=== PATIENT | male | born 1955 | race Caucasian/White ===

== ENCOUNTER → 2019-02-06 13:22 | Outpatient (CLI) | payer MEDICARE, OTHER, SELFPAY ==
--- NOTE | 2019-02-06 13:25 | CA_ITS ---
PROCEDURE: 2-D M-mode and color Doppler study INDICATIONS FOR THE TEST: Chest pain COPD Heart Murmur Tobacco Smoking Palpitations Fatigue+ Syncope Edema Hypertension+Diabetes Mellitus Rheumatic Fever SOB ROA Obesity Hyperlipidemia+ Family History HD Additional History MV replaced 08/31, pacer, a-fib PATIENT INFORMATION HEIGHT: 73 WEIGHT:164 GENDER: Male B/P:116/81 2-D/M-MODE INTERPRETATION: 2-D MEASUREMENTS OBSERVED VALUES IN CMS Right Ventricular Dimension (RVDd) 2.9 Interventricular Septum (Thickness)(IVsd) 1.3 Left Ventricular Internal Dimensions(LVIDd) 5.4 Left Ventricular Posterior Wall (Thickness)(LVPWd) 0.8 Aortic Root 3.2 Aortic Cusp Separation 2.5 Left Atrial Dimensions (LAD) 3.6 2D 1. Left atrium is mildly enlarged, left ventricle is mildly dilated, there is mild concentric left ventricular hypertrophy, visually estimated ejection fraction 20-25%, left ventricle is globally hypokinetic. 2. The right atrium and right ventricle are mildly enlarged, contractility of the right ventricle is mildly reduced. 3. The aortic valve is thickened and calcified leaflet continue to display mobility. 4. There is a mechanical prosthetic valve noted in the mitral position, the valve is well seated 5. The tricuspid valve leaflets are minimally thickened. 6. No significant pericardial effusion noted. DOPPLER INTERROGATION: 1. The aortic outflow velocities within normal range, there is no aortic stenosis aortic insufficiency. 2. The mitral inflow velocity across the prosthetic valve is within normal range, there is no mitral inflow obstruction, or mitral regurgitation. 3. Mild tricuspid regurgitation noted, tricuspid regurgitation jet velocity is inadequate for calculation of the right ventricular systolic pressure. 4. Diastolic parameters are inconclusive. CONCLUSION: 1. Biatrial enlargement, dilated left ventricle, severely reduced left ventricular systolic function, visually estimated ejection fraction of 20-25% % left ventricle is globally hypokinetic. Diastolic parameters are inconclusive. 2. Normal functioning bio prosthetic valve in the mitral position, the valve is well seated. 3. Mildly enlarged right ventricle with mild reduced contractility. 4. Mild mitral and tricuspid regurgitation 5. No significant pericardial effusion noted.
== END ==
PROVIDERS: PCP Nurse Practitioner Family; Visit Provider Urology
DX: Z95.2 Presence of prosthetic heart valve (principal)
CPT/HCPCS: 93306

== ENCOUNTER → 2019-02-06 15:52 | Outpatient (CLI) | payer MEDICARE, OTHER, SELFPAY ==
[2019-02-06 16:19] LABS: INR 2.74 (0.9-1.1); Prothrombin Time 27.2 seconds (9.4-11.8)
== END ==
PROVIDERS: Visit Provider Nurse Practitioner Family
DX: I11.9 Hypertensive heart disease without heart failure; I25.10 Atherosclerotic heart disease of native coronary artery without angina pectoris; I42.9 Cardiomyopathy, unspecified; I48.0 Paroxysmal atrial fibrillation; I50.21 Acute systolic (congestive) heart failure; R00.0 Tachycardia, unspecified; Z95.0 Presence of cardiac pacemaker; Z95.2 Presence of prosthetic heart valve; E78.49 Other hyperlipidemia
CPT/HCPCS: 36415; 85610; 93306

== ENCOUNTER → 2019-02-27 14:21 | Outpatient (CLI) | payer MEDICARE, OTHER, SELFPAY ==
--- NOTE | 2019-02-27 14:34 | MM_ITS ---
MM Dig mamm BI DX w/CAD INDICATION: Left breast tenderness, follow-up abnormal mammogram ORDERING PHYSICIAN: Michelle Silverio APRN PATIENT AGE: 63 years COMPARISON: 04/19/2018 TECHNIQUE: Routine images obtained along with left axillary view FINDINGS: There is increase in fibroglandular tissue in both subareolar regions left more so than right consistent with bilateral gynecomastia. The increased density of left breast is somewhat more diffuse than when compared to the previous exam. There is a 5 mm benign-appearing nodule in the lateral aspect of the left breast. This was not previously identified on the MLO view likely due to positioning but was seen on the cc view and is not significant change. There is an additional 3 mm nodule also noted in the lateral aspect of left breast unchanged. Benign-appearing nodular densities are noted in the upper aspect of the right facet similar to the previous exam. No malignant appearing mass or malignant microcalcification is evident. IMPRESSION: Benign appearing nodules noted bilaterally. Bilateral gynecomastia left greater than right BI-RADS Category: 3 Probably Benign Finding Short Term Follow-up RECOMMENDED FOLLOW-UP: 6M - 6 MONTH FOLLOW-UP (A letter has been sent to the patient regarding results of the study.)
== END ==
PROVIDERS: PCP Nurse Practitioner Family; Visit Provider Urology
DX: N64.4 Mastodynia (principal); Q83.8 Other congenital malformations of breast; N62 Hypertrophy of breast; Z12.39 Encounter for other screening for malignant neoplasm of breast
CPT/HCPCS: 77066

== ENCOUNTER → 2019-05-07 10:58 | Outpatient (CLI) | payer MEDICARE, OTHER, SELFPAY ==
--- NOTE | 2019-05-07 10:58 | CA_ITS ---
APPROVED REPORT EXAM: Comprehensive 2D, Doppler, and color-flow Echocardiogram Deputy Sheriff/Investigator: Kathy Scott RT(R) Ht: 6 ft 1 in Wt: 164lbs BSA: 1.98 BP: 108/68 mmHg Indications: Prosthetic Valve, Atrial Fibrillation, Dizziness and Vertigo, Fatigue, Hyperlipidemia, Hypertension/HDD, History of dilated cardiomyopathy, currently wearing lifevest, mechanical MV (08/2017). 2D Dimensions LVOT 2.10 cm (M/F) 1.5-2.5 M-Mode Dimensions RVDd 2.80 cm (0.9-2.6) LA Diam 3.60 cm (1.9-4.0) LVDd 5.70 cm (3.5-5.7) Ao Diam 3.10 cm (2.0-3.7) LVDs 4.40 cm (3.5-5.7) AV Cusp 2.50 cm (1.5-2.6) IVSd 0.70 cm (0.6-1.1) PWd 0.80 cm (0.6-1.1) EF (Teich) 45.20% FS 22.80% EDV (Teich) 160.00 mL ESV (Teich) 87.70 mL LV Diastology E/A Ratio 2.1 MED E' 6.73 (< 7 cm/sec) E'/MED E' Ratio 20.80 (>14) LAT E' 13.40 (<10 cm/sec) E/LAT E' Ratio 10.40 (>14) Mitral Valve MV E Max Carter. 140.00 (40-130 cm/s) MV A Velocity 65.80 (40-130 cm/s) E/A Ratio 2.10 MV Mean Gr. 3.00 (<2mmHg) Left Ventricle Left atrium is moderately enlarged, left ventricle is mildly dilated, there is mild concentric left ventricular hypertrophy, visually estimated ejection fraction of 40 to 45%, there is mild left ventricular global hypokinesis. Endocardial surfaces are poorly visualized, diastolic parameters are inconclusive. Right Ventricle Right atrium and right ventricular mildly enlarged with normal contractility, there is a pacemaker leads in right atrium and right ventricle. Aortic Valve Aortic valve is thickened and calcified, leaflet continue to display good mobility, there is no aortic stenosis or aortic insufficiency. Mitral Valve There is a mechanical prosthetic valve noted in the mitral position, the valve is well-seated. The mean gradient across valve is 3 mmHg, which is within physiological range for this type of valve, there is no mitral regurgitation. Tricuspid Valve Tricuspid valve is not well visualized, there is no significant tricuspid regurgitation seen. Pulmonic Valve Pulmonic valve is poorly visualized. Great Vessels Aortic root is normal size. Pericardium No significant pericardial effusion noted. Conclusion 1. Moderately enlarged left atrium, mildly dilated left ventricle, visually estimated ejection fraction 40 to 45%, there is abnormal septal motion. Diastolic parameters are inconclusive. 2. Mechanical prosthetic valve in the mitral position, the valve is well-seated, there is no significant mitral inflow obstruction or mitral regurgitation. 3. Mildly enlarged right-sided chambers with normal contractility of the right ventricle, pacemaker lead seen in the right atrium and right ventricle. 4. Tricuspid valve is poorly visualized. 5. No significant pericardial effusion noted. Electronically signed by : Alberto Daniels, 05/07/2019 20:38:25
== END ==
PROVIDERS: PCP Nurse Practitioner Family; Visit Provider Urology
DX: I42.0 Dilated cardiomyopathy (principal)
CPT/HCPCS: 93306

== ENCOUNTER → 2020-02-03 14:41 | Outpatient (CLI) | payer MEDICARE, OTHER, SELFPAY ==
[2020-02-03 15:39] LABS: Basophils % 0.5 % (0.1-2.0); Eosinophils # 0.1 K/mm3 (0.0-0.4); Hemoglobin 15.4 g/dL (14.1-18.0); Lymphocytes # 1.5 K/mm3 (0.7-4.5); Lymphocytes % 21.6 % (10-50); Mean Corpuscular HGB Conc 33.5 g/dL (31.8-35.4); Mean Corpuscular Hemoglobin 31.5 pg (27.0-31.2); Mean Corpuscular Volume 93.8 fl (80-94); Mean Platelet Volume 8.1 fl (7.4-10.4); Monocytes # 0.6 K/mm3 (0.1-1.0); Monocytes % 8.6 % (1.7-9.3); Neutrophils # 4.7 K/mm3 (1.8-7.8); Neutrophils % 68.4 % (37.0-80.0); Platelet Count 239 K/mm3 (142-424); White Blood Count 6.9 K/mm3 (4.8-10.8)
[2020-02-03 15:44] LABS: Chloride 105 mmol/L (98-107)
[2020-02-03 15:45] LABS: Potassium 4.9 mmoL/L (3.5-5.1); Sodium 137 mmol/L (136-145)
[2020-02-03 15:47] LABS: Alanine Aminotransferase 19 U/L (12-78); Alkaline Phosphatase 48 U/L (38-126); Anion Gap 6.9 mEq/L (5-15); Aspartate Amino Transferase 30 U/L (17-59); Bilirubin,Direct 0.2 mg/dl (0.0-0.4); Bilirubin,Indirect 0.8 mg/dL (0.0-0.9); Bilirubin,Unconjugated 0.8 mg/dL (0.0-1.1); Blood Urea Nitrogen 29 mg/dl (9-20); Carbon Dioxide 30 mmol/L (22.0-30.0); Cholesterol 118 mg/dl (140-200); Estimated Glomerular Filt Rate 67 ml/min (>60); GFR (African American) 81 ML/MIN (>60); Triglycerides 116 mg/dl (30-150); VLDL Cholesterol 23 mg/dL (0-40)
[2020-02-03 15:48] LABS: Albumin Level 3.7 g/dl (3.5-5.0); Calcium 8.6 mg/dl (8.4-10.2); Glucose 86 mg/dl (74-100); Total Protein,Serum 6.7 g/dl (6.3-8.2)
[2020-02-03 15:59] LABS: Direct LDL Cholesterol 43.29 mg/dL (100-129)
[2020-02-03 16:04] LABS: Free T4 (Free Thyroxine) 1.11 ng/dl (0.78-2.19)
[2020-02-03 16:18] LABS: Thyroid Stimulating Hormone 0.73 uIU/mL (0.465-4.68)
[2020-02-03 21:36] LABS: HDL Cholesterol 59 mg/dl (40-60)
== END ==
PROVIDERS: Visit Provider Nurse Practitioner Family
DX: E78.5 Hyperlipidemia, unspecified (principal); G47.33 Obstructive sleep apnea (adult) (pediatric); I11.9 Hypertensive heart disease without heart failure; I25.10 Atherosclerotic heart disease of native coronary artery without angina pectoris; I42.9 Cardiomyopathy, unspecified; I48.91 Unspecified atrial fibrillation; I48.92 Unspecified atrial flutter; Z51.81 Encounter for therapeutic drug level monitoring; Z79.01 Long term (current) use of anticoagulants; Z95.0 Presence of cardiac pacemaker; Z95.2 Presence of prosthetic heart valve
CPT/HCPCS: 36415; 80048; 80061; 80076; 84439; 84443; 85025

== ENCOUNTER → 2020-06-02 11:01 | Outpatient (CLI) | payer MEDICARE, OTHER, SELFPAY ==
--- NOTE | 2020-06-02 11:03 | CA_ITS ---
APPROVED REPORT EXAM: Comprehensive 2D, Doppler, and color-flow Echocardiogram Sexual Abuse Counsellor: Kathy Scott RT(R) Ht: 6 ft 1 in Wt: 172lbs BSA: 2.02 BP: 113/70 mmHg Indications: Murmur, fatigue, HTN, hyperlipidemia, pacemaker, CM, AFIB, CAD, BLANCA, hx of MVR 2D Dimensions LVOT 1.98 cm (M/F) 1.5-2.5 M-Mode Dimensions RVDd 2.87 cm (0.9-2.6) LA Diam 3.34 cm (1.9-4.0) LVDd 5.09 cm (3.5-5.7) Ao Diam 2.94 cm (2.0-3.7) LVDs 3.80 cm (3.5-5.7) IVSd 1.15 cm (0.6-1.1) PWd 0.90 cm (0.6-1.1) EF (Teich) 49.70% FS 25.30% EDV (Teich) 123.20 mL ESV (Teich) 62.00 mL LV Diastology LAT E' 12.40 (<10 cm/sec) Left Ventricle Left atrium is mildly enlarged, left ventricle is normal size, visually estimated ejection fraction approximately 50% with no regional wall motion abnormality. There is abnormal septal motion. Diastolic parameters are inconclusive. Right Ventricle Right atrium and right ventricular normal size and contractility. Aortic Valve Aortic valve is minimally thickened and fibrosed, there is no aortic stenosis or aortic insufficiency. Mitral Valve There is a mechanical prosthetic valve noted in the mitral position, the valve is well-seated, there is acceptable gradient across the mitral valve, there is no mitral regurgitation. Tricuspid Valve Tricuspid valve is minimally thickened, there is mild tricuspid regurgitation, tricuspid regurgitation jet velocity is inadequate for calculation of the right ventricular systolic pressure. Pulmonic Valve Pulmonic valve is poorly visualized. Great Vessels Aortic root is mildly enlarged. Pericardium No significant pericardial effusion noted. Conclusion 1. Mildly low left atrium, normal left ventricular size, mild concentric left ventricular hypertrophy, visually estimated ejection fraction approximately 50% there is abnormal septal motion. Diastolic parameters are inconclusive. 2. Pacemaker lead seen right atrium and right ventricle, contractility of the right ventricle is normal. 3. Thickened and calcified aortic valve without aortic stenosis or aortic insufficiency, aortic root is mildly enlarged. 4. Normal functioning mechanical prosthetic valve in mitral position. 5. No significant pericardial effusion noted. Electronically signed by : Alberto Daniels, 06/02/2020 19:25:35
== END ==
PROVIDERS: PCP Nurse Practitioner Family; Visit Provider Nurse Practitioner Family
DX: E78.2 Mixed hyperlipidemia (principal); G47.33 Obstructive sleep apnea (adult) (pediatric); I11.0 Hypertensive heart disease with heart failure; I25.10 Atherosclerotic heart disease of native coronary artery without angina pectoris; I42.0 Dilated cardiomyopathy; I48.0 Paroxysmal atrial fibrillation; I50.21 Acute systolic (congestive) heart failure; K26.4 Chronic or unspecified duodenal ulcer with hemorrhage; R42 Dizziness and giddiness; R53.83 Other fatigue; Z95.0 Presence of cardiac pacemaker; Z95.2 Presence of prosthetic heart valve
CPT/HCPCS: 93306

== ENCOUNTER → 2021-06-09 13:27 | Outpatient (CLI) | payer MEDICARE, OTHER, SELFPAY | PROVIDERS: PCP Nurse Practitioner Family; Visit Provider Nurse Practitioner Family | DX: E78.5 Hyperlipidemia, unspecified (principal); G47.33 Obstructive sleep apnea (adult) (pediatric); I11.9 Hypertensive heart disease without heart failure; I25.10 Atherosclerotic heart disease of native coronary artery without angina pectoris; I48.91 Unspecified atrial fibrillation; Z95.0 Presence of cardiac pacemaker; Z95.2 Presence of prosthetic heart valve | CPT/HCPCS: 93306 ==

== ENCOUNTER → 2022-07-28 14:42 | Outpatient (CLI) | payer MEDICARE, OTHER, SELFPAY ==
[2022-07-28 15:29] LABS: Basophils # 0.1 K/mm3 (0-0.2); Basophils % 1.3 % (0.1-2.0); Eosinophils # 0.1 K/mm3 (0.0-0.4); Eosinophils % 1.1 % (0.1-12.0); Hematocrit 45.8 % (42.0-52.0); Hemoglobin 14.6 g/dL (14.1-18.0); Lymphocytes # 1.2 K/mm3 (0.7-4.5); Lymphocytes % 19.3 % (10-50); Mean Corpuscular HGB Conc 31.9 g/dL (31.8-35.4); Mean Corpuscular Hemoglobin 29.7 pg (27.0-31.2); Mean Corpuscular Volume 93.1 fl (80-94); Mean Platelet Volume 8.2 fl (7.4-10.4); Monocytes # 0.5 K/mm3 (0.1-1.0); Monocytes % 8.7 % (1.7-9.3); Neutrophils # 4.3 K/mm3 (1.8-7.8); Neutrophils % 69.6 % (37.0-80.0); Platelet Count 269 K/mm3 (142-424); Red Blood Count 4.92 M/mm3 (4.60-6.20); Red Cell Distribution Width 14.2 % (11.5-17.5); White Blood Count 6.2 K/mm3 (4.8-10.8)
[2022-07-28 15:55] LABS: Alanine Aminotransferase 36 U/L (12-78); Alkaline Phosphatase 70 U/L (38-126); Anion Gap 9.5 mEq/L (5-15); Aspartate Amino Transferase 46 U/L (17-59); Bilirubin,Indirect 0.6 mg/dL (0.0-0.9); Bilirubin,Total 0.6 mg/dl (0.2-1.3); Bilirubin,Unconjugated 0.6 mg/dL (0.0-1.1); Blood Urea Nitrogen 26 mg/dl (9-20); Calcium 9.2 mg/dl (8.4-10.2); Carbon Dioxide 29 mmol/L (22.0-30.0); Chloride 104 mmol/L (98-107); Estimated Glomerular Filt Rate 67 ml/min (>60); GFR (African American) 81 ML/MIN (>60); Glucose 88 mg/dl (74-100); Potassium 4.5 mmoL/L (3.5-5.1); Sodium 138 mmol/L (136-145)
[2022-07-28 16:13] LABS: Free T4 (Free Thyroxine) 1.13 ng/dl (0.78-2.19)
[2022-07-28 16:26] LABS: Thyroid Stimulating Hormone 1.17 uIU/mL (0.465-4.68)
== END ==
PROVIDERS: PCP Nurse Practitioner Family; Visit Provider Nurse Practitioner Family
DX: I42.0 Dilated cardiomyopathy (principal); I50.21 Acute systolic (congestive) heart failure; I63.9 Cerebral infarction, unspecified; R55 Syncope and collapse; Z95.0 Presence of cardiac pacemaker; Z95.2 Presence of prosthetic heart valve; E11.9 Type 2 diabetes mellitus without complications; R06.00 Dyspnea, unspecified
CPT/HCPCS: 36415; 80048; 80076; 84439; 84443; 85025

== ENCOUNTER → 2022-08-08 10:51 | Outpatient (CLI) | payer MEDICARE, SELFPAY ==
--- NOTE | 2022-08-08 | CA_ITS ---
APPROVED REPORT Exam: Pharmacologic Technologist: Montserrat Rhodes Ht: 6 ft 1 in Wt: 176 lbs BSA: 2.04 m2 HR: 73 bpm BP: 138/82 mmHg Indications: Syncope Medical History Medications: Coumadin,,,,, Simvastatin,,,,, TAMSULOSIN,,,,, ZYRTEC,,,,, Toprol XL,,,,, SilDENAFIL,,,,, Stress Test Details Test: LEXISCAN HR Resting HR: 70 bpm Max Heart Rate (APMHR): 152.647901 bpm Max HR Achieved: 107 bpm Target HR (85% APMHR): 129.232125 bpm % of APMHR: 70.39 Recovery HR: 79 bpm BP Resting BP: 138.0/82.0 mmHg Max BP: 140.0/74.0 mmHg Recovery BP: 127.0/78.0 mmHg ECG Resting ECG: Ventricular paced rhythm Clinical Exercise duration: 04:05 min Highest Stage Achieved: Exercise capacity: 1.0 METs Stress ECG Conclusion Symptoms: Head discomfort, mild shortness of air. No chest pain. Arrhythmias/Ectopy: Moderately frequent PVCs or aberrantly conducted beats. [place] rhythm with increased heart rate noted. ST-T Changes: No significant changes. Conclusion: Non-diagnostic Lexiscan stress. Myoview images reported separately. Test Summary REST . . . . . . . Sitting REST 06:07 . . 70 . 138/ 82 . . Stage 1 . . . . . . . Myoview Injected Stage 1 01:00 . . 86 . . . . Stage 2 01:00 . . 89 . 140/ 74 . . Stage 3 01:00 . . 76 . 120/ 83 . . Stage 4 01:00 . . 75 . 124/ 75 . . Stage 4 01:05 . . 72 . 124/ 75 . Stop exercise at 04:05 RECOVERY 01:00 . . 73 . . . . RECOVERY 02:00 . . 70 . . . . RECOVERY 03:00 . . 78 . 127/ 78 . . RECOVERY 03:17 . . 80 . 127/ 78 . . Electronically signed by : Alberto Daniels MD 08/08/2022 15:03:36
--- NOTE | 2022-08-08 10:52 | CA_ITS ---
APPROVED REPORT EXAM: Comprehensive 2D, Doppler, and color-flow Echocardiogram Mine Patrol: Kathy Scott RT(R) Ht: 6 ft 1 in Wt: 176lbs BSA: 2.04 BP: 108/77 mmHg Indications: syncope, pacemaker, CM, AFIB, BLANCA, mechanical MV, prostate CA, AFIB 2D Dimensions LVOT 2.02 cm (M/F) 1.5-2.5 LVEF (Almaraz's) 41.00 % M: 52 - 72 LV Volume 110.60 mL M: 62 - 150 LV Volume Index 54.22 mL/m2 M: 34 - 74 M-Mode Dimensions RVDd 2.95 cm (0.9-2.6) LA Diam 3.67 cm (1.9-4.0) LVDd 5.06 cm (3.5-5.7) Ao Diam 3.77 cm (2.0-3.7) LVDs 4.02 cm (3.5-5.7) IVSd 1.01 cm (0.6-1.1) PWd 0.77 cm (0.6-1.1) EF (Teich) 41.80% FS 20.60% EDV (Teich) 121.60 mL ESV (Teich) 70.80 mL LV Diastology E Decel Time 167.00 (160-240 msec) E/A Ratio 1.4 Aortic Valve LVOT Max 62.00 (70-110 cm/s) LVOT VTI 12.37 cm AoV Peak Carter. 99.00 (50-130 cm/s) AO Peak GR. 3.90 mmHg AO Mean GR. 1.90 (<5 mmHg) AO VTI 18.20 (18-25 cm) TIM (VTI) 2.18 (2.5-4.5 cm2) Mitral Valve MV E Max Carter. 136.00 (40-130 cm/s) MV A Velocity 97.00 (40-130 cm/s) E/A Ratio 1.41 MV Decel. Time 167.00 (160-240 ms) MV PHT 49.00 ms Left Ventricle Atrium is moderately enlarged, left ventricle is normal size, estimated ejection fraction approximately 45%, there is abnormal septal motion. Diastolic parameters are inconclusive. Right Ventricle Right atrium and right ventricle are moderately enlarged with normal contractility, pacemaker leads in the right atrium and right ventricle. Aortic Valve Aortic valve is thickened and calcified without Doppler evidence of aortic stenosis or aortic insufficiency. Mitral Valve There is mechanical prosthetic valve noted in the mitral position, the valve is well-seated, the maximum mitral inflow velocity is approximately 1.6 m/s, resulting in a mean gradient across mitral valve of 3.8 cm, pressure half-time is not calculated, this is within normal range mean gradient across mechanical prosthetic valve. There is no significant mitral regurgitation. Tricuspid Valve Tricuspid valve grossly normal, there is mild tricuspid regurgitation, tricuspid regurgitation jet velocity is inadequate for calculation of the right ventricular systolic pressure. Pulmonic Valve Pulmonic valve is poorly visualized. Great Vessels Aortic root is normal size. Inferior vena cava is mildly dilated with more than 50% inspiratory collapse. Pericardium No significant pericardial effusion noted. Conclusion 1. Biatrial enlargement, normal left ventricular size, estimated ejection fraction 45%, there is abnormal septal motion, diastolic parameters are inconclusive. 2. Moderately enlarged right ventricle with normal contractility. 3. Normal functioning mechanical prosthetic valve in the mitral position without significant mitral inflow obstruction or mitral regurgitation. 4. Mild tricuspid regurgitation. 5. No significant pericardial effusion noted. 6. Inferior vena cava is mildly dilated with more than 50% inspiratory collapse. Electronically signed by : Alberto Daniels MD 08/08/2022 15:29:59
--- NOTE | 2022-08-08 10:52 | CA_ITS ---
FINAL REPORT CLINICAL HISTORY: SYNCOPE,DIZZINESS,HLD,HTN FINDINGS: An ultrasound of the carotid arteries was performed. Duplex Doppler evaluation with spectral analysis was performed. The peak systolic velocity of the right common carotid artery is 70 cm/s. The peak systolic velocity of the right internal carotid artery is 74 cm/s and end diastolic velocity 33 cm/s. A small amount of plaque is present. The right external carotid artery is patent. The right vertebral artery is patent with antegrade flow. ICA/CCA ratio: 1.23 The peak systolic velocity of the left common carotid artery is 80 cm/s. The peak systolic velocity of the left internal carotid artery is 60 cm/s and end diastolic velocity 23 cm/s. A small amount of plaque is present. The left external carotid artery is patent. The left vertebral artery is patent with antegrade flow. ICA/CCA ratio: 0.95 Bilateral patent vertebral arteries with antegrade flow. IMPRESSION: Less than 50% bilateral carotid stenosis. Reviewed, Interpreted and Dictated by Benji Gaxiola III, MD Transcribed by David Torres Authenticated and [facility]
--- NOTE | 2022-08-08 11:37 | NM_ITS ---
APPROVED REPORT Exam: Nuclear Stress Test Indication: VALVEVULAR DISEASE, SYNCOPE, PACE MAKER Patient Location: Outpatient Stress Tech: Montserrat Rhodes NM Tech:Carolyn DuncanJOSE ALBERTO RT (R)(N)(M) Ht: 6 ft 1 in Wt: 170 lbs HR: 73 bpm BP: 138/82 mmHg BSA: 2.01 m2 TID: 1.12 BMI: 22.4 History: VALVEVULAR DISEASE, SYNCOPE Procedure: Patient received a 0.4 mg of intravenous Lexiscan, resting heart rate 73 bpm, resting blood pressure 138/82 mmHg, with Lexiscan maximum heart rate achived was 87 bpm which is Less than 85 % of the maximum predicted heart rate and blood pressure was 140/74 mmHg. With Lexiscan, patient denied any complaint of chest pain. Electrocardiogram Resting electrocardiogram showed electronically paced rhythm, with Lexiscan less than 1.[address] segment depression noted from the baseline EKG. The EKG portion of the Lexiscan is nondiagnostic Cardiac Stress and Resting SPECT Images: Cardiac Stress and Resting SPECT images were obtained using technetium 99m Myoview 32.7 mCi stress and 10.86 mCi at rest. Gated SPECT for analysis of segmental wall motion and calculation of the ejection fraction also done. Prone images were also obtained. Cardiac stress and resting SPECT images show a fixed defect in the inferior wall which is likely secondary to soft tissue attenuation, no reversible ischemia seen, computer derived ejection fraction is 24%, however visually estimated ejection fraction approximately 40%, there is abnormal septal motion. Conclusion: 1. The EKG portion of the Lexiscan is nondiagnostic. 2. No scintigraphic evidence of reversible ischemia seen, a fixed defect in the inferior wall is likely secondary to soft tissue attenuation, computer derived ejection fraction is approximately 24%, however visually estimated ejection fraction is approximately 40% with abnormal septal motion. 3. Abnormal Lexiscan Myoview study due to low ejection fraction. Electronically signed by : Alberto Daniels MD 08/08/2022 15:37:28
== END ==
PROVIDERS: PCP Nurse Practitioner Family; Visit Provider Nurse Practitioner Family
DX: E78.2 Mixed hyperlipidemia (principal); G47.33 Obstructive sleep apnea (adult) (pediatric); I11.0 Hypertensive heart disease with heart failure; I25.10 Atherosclerotic heart disease of native coronary artery without angina pectoris; I42.0 Dilated cardiomyopathy; I48.0 Paroxysmal atrial fibrillation; I50.21 Acute systolic (congestive) heart failure; I50.32 Chronic diastolic (congestive) heart failure; N52.2 Drug-induced erectile dysfunction; R55 Syncope and collapse; Z95.0 Presence of cardiac pacemaker; Z95.2 Presence of prosthetic heart valve; R09.89 Other specified symptoms and signs involving the circulatory and respiratory systems
CPT/HCPCS: 78452; 93017; 93306; 93880; A9502; J2785

== ENCOUNTER → 2022-08-10 10:34 | Outpatient (CLI) | payer MEDICARE, SELFPAY ==
--- NOTE | 2022-08-10 10:38 | CT_ITS ---
FINAL REPORT TECHNIQUE: Then section axial CT images of the chest were obtained with contrast. Three-D reformatted images were also obtained.This study was performed with techniques to keep radiation doses as low as reasonably achievable (ALARA). Individualized dose reduction techniques using automated exposure control or adjustment of mA and/or kV according to the patient's size were employed. CLINICAL HISTORY: syncope/hx of mechanical mitral valve. FINDINGS: There are postoperative changes from median sternotomy. A left-sided pacemaker is present. There is no evidence of pulmonary embolism. There is no evidence of thoracic aortic aneurysm or dissection. There is no evidence of mediastinal or hilar mass or adenopathy. There is no evidence of pulmonary mass or suspicious nodule. There are calcified granulomas in the left lung base. There is mild pulmonary scarring. Limited images of the upper abdomen are unremarkable. IMPRESSION: 1. No evidence of pulmonary embolism. 2. No mass or localized inflammatory process. Reviewed, Interpreted and Dictated by Benji Gaxiola III, MD Transcribed by Irma Griggs Authenticated and [facility]
== END ==
PROVIDERS: PCP Nurse Practitioner Family; Visit Provider Internal Medicine
DX: C61 Malignant neoplasm of prostate (principal); E78.2 Mixed hyperlipidemia; G47.33 Obstructive sleep apnea (adult) (pediatric); I11.0 Hypertensive heart disease with heart failure; I25.10 Atherosclerotic heart disease of native coronary artery without angina pectoris; I42.0 Dilated cardiomyopathy; I48.0 Paroxysmal atrial fibrillation; I50.32 Chronic diastolic (congestive) heart failure; R55 Syncope and collapse; Z95.0 Presence of cardiac pacemaker; Z95.2 Presence of prosthetic heart valve
CPT/HCPCS: 71275; Q9967

== ENCOUNTER 2022-08-15 08:40 | Day surgery (SDC) | payer MEDICARE, SELFPAY ==
[2022-08-15] VITALS (11 sets, daily range): BP systolic 100–141; BP diastolic 58–87; PULSE 69–100; RESP 17–20; O2SAT 95–99; BMI 23.2
--- NOTE | 2022-08-15 07:01 | IR_ITS ---
APPROVED REPORT Patient Location: Outpatient PROCEDURES Left heart catheterization Selective coronary angiogram Left ventriculogram INDICATION Abnormal echocardiogram, Systolic congestive heart failure Informed consent was obtained prior to the procedure. COMPLICATIONS None Estimated Blood Loss: Less than 10 mls TECHNIQUE One percent lidocaine used to anesthetize the right anterior aspect of the wrist. The right radial artery was accessed via the Seldinger technique. A 6 Syriac sheath was placed in the right radial artery. 2.5 mg of verapamil, 800 mcg of nitroglycerin, 1mg Lidocaine and 5000 U Heparin were given through the arterial sheath. The papa catheter was also used to perform left heart catheterization, left ventriculogram and selective coronary angiogram. At the end of the procedure the sheath was removed good hemostasis was achieved using Traclet band, patient was transferred to the postop holding area in stable condition. ANGIOGRAPHIC RESULTS The left main artery Normal The left anterior descending artery Has proximal smooth 30% stenosis with remaining vessel normal The circumflex artery Codominant normal The right coronary artery Codominant normal The NOLASCO ventriculogram reveals Ejection fraction 45% The left ventricular end-diastolic pressure 20 mmHg IMPRESSION Mild nonflow limiting coronary disease Slight reduction in ejection fraction with mildly elevated LVEDP PLAN 1. Interrogate biventricular pacemaker to determine if all leads are appropriately firing and providing cardiac resynchronization therapy 2. Continue medical management Electronically signed by : Barney Hurtado MD 08/15/2022 14:57:07
[2022-08-15 09:48] LABS: INR 2.05 (0.9-1.1); Prothrombin Time 21.3 seconds (10.1-12.5)
== END 2022-08-15 13:39 | disposition home or self-care (01) ==
PROVIDERS: PCP Nurse Practitioner Family; Visit Provider Internal Medicine
DX: I25.10 Atherosclerotic heart disease of native coronary artery without angina pectoris (principal); I11.0 Hypertensive heart disease with heart failure; I50.32 Chronic diastolic (congestive) heart failure; I48.0 Paroxysmal atrial fibrillation; Z79.01 Long term (current) use of anticoagulants; C61 Malignant neoplasm of prostate; Z79.899 Other long term (current) drug therapy; R94.39 Abnormal result of other cardiovascular function study
CPT/HCPCS: 85610; 93458; 99152; C1725; C1769; J1644; Q9967

== ENCOUNTER → 2023-02-23 11:00 | Outpatient (CLI) | payer MEDICARE, SELFPAY ==
[2023-02-23 15:56] LABS: Basophils % 0.5 % (0.1-2.0); Eosinophils # 0.1 K/mm3 (0.0-0.4); Eosinophils % 1.4 % (0.1-12.0); Hematocrit 44.3 % (42.0-52.0); Hemoglobin 14.2 g/dL (14.1-18.0); Lymphocytes # 1.2 K/mm3 (0.7-4.5); Lymphocytes % 18.4 % (10-50); Mean Corpuscular HGB Conc 32.1 g/dL (31.8-35.4); Mean Corpuscular Hemoglobin 29.3 pg (27.0-31.2); Mean Corpuscular Volume 91.3 fl (80-94); Mean Platelet Volume 8.3 fl (7.4-10.4); Monocytes # 0.5 K/mm3 (0.1-1.0); Monocytes % 6.9 % (1.7-9.3); Neutrophils # 4.8 K/mm3 (1.8-7.8); Neutrophils % 72.8 % (37.0-80.0); Platelet Count 234 K/mm3 (142-424); Red Blood Count 4.85 M/mm3 (4.60-6.20); Red Cell Distribution Width 14.3 % (11.5-17.5); White Blood Count 6.6 K/mm3 (4.8-10.8)
[2023-02-23 16:41] LABS: Alanine Aminotransferase 24 U/L (12-78); Albumin Level 3.8 g/dl (3.5-5.0); Alkaline Phosphatase 56 U/L (38-126); Anion Gap 9.7 mEq/L (5-15); Aspartate Amino Transferase 36 U/L (17-59); Bilirubin,Indirect 0.7 mg/dL (0.0-0.9); Bilirubin,Total 0.7 mg/dl (0.2-1.3); Bilirubin,Unconjugated 0.9 mg/dL (0.0-1.1); Blood Urea Nitrogen 30 mg/dl (9-20); Calcium 8.6 mg/dl (8.4-10.2); Carbon Dioxide 27 mmol/L (22.0-30.0); Chloride 105 mmol/L (98-107); Chol/HDL Ratio 1.9 (1-3.5); Cholesterol 161 mg/dl (140-200); Estimated Glomerular Filt Rate 66 ml/min (>60); GFR (African American) 80 ML/MIN (>60); Glucose 78 mg/dl (74-100); HDL Cholesterol 83 mg/dl (40-60); Magnesium 2.1 mg/dl (1.6-2.3); Potassium 4.7 mmoL/L (3.5-5.1); Sodium 137 mmol/L (136-145); Total Protein,Serum 6.7 g/dl (6.3-8.2); Triglycerides 66 mg/dl (30-150); VLDL Cholesterol 13 mg/dL (0-40)
[2023-02-23 16:47] LABS: 25-OH Vitamin D, Total 42.6 ng/mL (30-100); Free T4 (Free Thyroxine) 1.23 ng/dl (0.78-2.19)
[2023-02-23 16:52] LABS: Direct LDL Cholesterol 60.99 mg/dL (100-129)
[2023-02-23 17:12] LABS: Thyroid Stimulating Hormone 0.77 uIU/mL (0.465-4.68)
== END ==
PROVIDERS: Visit Provider Internal Medicine
DX: C61 Malignant neoplasm of prostate (principal); E78.5 Hyperlipidemia, unspecified; G47.33 Obstructive sleep apnea (adult) (pediatric); I11.9 Hypertensive heart disease without heart failure; I25.10 Atherosclerotic heart disease of native coronary artery without angina pectoris; I42.9 Cardiomyopathy, unspecified; I48.91 Unspecified atrial fibrillation; Z95.0 Presence of cardiac pacemaker; Z95.2 Presence of prosthetic heart valve; M81.0 Age-related osteoporosis without current pathological fracture; E78.2 Mixed hyperlipidemia
CPT/HCPCS: 36415; 80048; 80061; 80076; 82306; 83735; 84439; 84443; 85025

== ENCOUNTER → 2023-03-03 08:56 | Outpatient (CLI) | payer MEDICARE, SELFPAY ==
--- NOTE | 2023-03-03 09:03 | XR_ITS ---
FINAL REPORT TECHNIQUE: Bone densitometry calculations of the lumbar spine and left hip were obtained. CLINICAL HISTORY: . age-related osteoporosis FINDINGS: Using L1-4, the bone mineral density of the spine is 1.183 g/cm2, corresponding to T-score of 0.8 and a Z score of 1.7. This is within the range of normal. Using the left hip, the bone mineral density of the femoral neck is 0.801 g/cm2, corresponding to a T-score of -1.5 and a Z-score of -0.9. This is within the range of osteopenia. NOTE: T-score: Standard deviation compared with peak bone mass of young adult mean. *Following the recommendations of the International Society of Bone densitometry, classification of hip BMD is based on the lower of two T-scores; total hip or femoral neck. IMPRESSION: 1. Bone mineral density of the lumbar spine within the range of normal. 2. Bone mineral density of the left femoral neck within the range of osteopenia. FRAX data reports 4.8% major osteoporotic fracture and 0.7% hip fracture. Reviewed, Interpreted and Dictated by Maria Elena Brandt MD Transcribed by Candy Romero Authenticated and [facility]
== END ==
PROVIDERS: PCP Internal Medicine; Visit Provider Internal Medicine
DX: M81.0 Age-related osteoporosis without current pathological fracture (principal)
CPT/HCPCS: 77080

== ENCOUNTER 2023-08-21 11:31 | Outpatient (CLI) | payer MEDICARE, SELFPAY ==
[2023-08-21 12:04] LABS: Basophils % 0.6 % (0.1-2.0); Eosinophils % 0.2 % (0.1-12.0); Hemoglobin 14.5 g/dL (14.1-18.0); Lymphocytes # 0.8 K/mm3 (0.7-4.5); Lymphocytes % 10.9 % (10-50); Mean Corpuscular HGB Conc 32.9 g/dL (31.8-35.4); Mean Corpuscular Volume 94.1 fl (80-94); Mean Platelet Volume 8.5 fl (7.4-10.4); Monocytes # 0.5 K/mm3 (0.1-1.0); Monocytes % 6.9 % (1.7-9.3); Neutrophils % 81.4 % (37.0-80.0); Platelet Count 227 K/mm3 (142-424); Red Blood Count 4.67 M/mm3 (4.60-6.20); Red Cell Distribution Width 15.1 % (11.5-17.5); White Blood Count 7.4 K/mm3 (4.8-10.8)
[2023-08-21 12:24] LABS: Chloride 106 mmol/L (98-107)
[2023-08-21 12:25] LABS: Potassium 4.8 mmoL/L (3.5-5.1); Sodium 138 mmol/L (136-145)
[2023-08-21 12:27] LABS: Alanine Aminotransferase 27 U/L (12-78); Alkaline Phosphatase 57 U/L (38-126); Anion Gap 9.8 mEq/L (5-15); Aspartate Amino Transferase 36 U/L (17-59); Bilirubin,Direct 0.1 mg/dl (0.0-0.4); Bilirubin,Indirect 0.8 mg/dL (0.0-0.9); Bilirubin,Total 0.9 mg/dl (0.2-1.3); Bilirubin,Unconjugated 0.8 mg/dL (0.0-1.1); Blood Urea Nitrogen 33 mg/dl (9-20); Calcium 8.5 mg/dl (8.4-10.2); Carbon Dioxide 27 mmol/L (22.0-30.0); Cholesterol 253 mg/dl (140-200); Estimated Glomerular Filt Rate 55 ml/min (>60); GFR (African American) 66 ML/MIN (>60); Glucose 97 mg/dl (74-100); Triglycerides 91 mg/dl (30-150); VLDL Cholesterol 18 mg/dL (0-40)
[2023-08-21 12:28] LABS: Albumin Level 3.8 g/dl (3.5-5.0); HDL Cholesterol 83 mg/dl (40-60); Total Protein,Serum 6.7 g/dl (6.3-8.2)
[2023-08-21 12:45] LABS: Direct LDL Cholesterol 110.73 mg/dL (100-129)
[2023-08-21 12:46] LABS: Free T4 (Free Thyroxine) 1.21 ng/dl (0.78-2.19)
[2023-08-21 12:58] LABS: Thyroid Stimulating Hormone 0.87 uIU/mL (0.465-4.68)
[2023-08-29 11:28] LABS: Free Testosterone (Direct) 4.3 pg/mL (6.6-18.1); Testosterone, Total, LC/MS 802.1 ng/dL (264.0-916.0)
== END 2023-08-21 23:59 ==
LOC: LAB 11:33
PROVIDERS: PCP Nurse Practitioner Family; Visit Provider Physician Assistant
DX: C61 Malignant neoplasm of prostate (principal); E78.5 Hyperlipidemia, unspecified; I11.0 Hypertensive heart disease with heart failure; I25.10 Atherosclerotic heart disease of native coronary artery without angina pectoris; I50.32 Chronic diastolic (congestive) heart failure; I48.0 Paroxysmal atrial fibrillation; M85.80 Other specified disorders of bone density and structure, unspecified site; R42 Dizziness and giddiness; R53.83 Other fatigue; R55 Syncope and collapse; Z51.81 Encounter for therapeutic drug level monitoring; Z79.01 Long term (current) use of anticoagulants
CPT/HCPCS: 36415; 80048; 80061; 80076; 83735; 84439; 84443; 85025

== ENCOUNTER 2023-09-04 12:56 | Outpatient (CLI) | payer MEDICARE, SELFPAY ==
[2023-09-04 14:05] LABS: PHA INR Fingerstick 2.6 (0.9-1.1)
== END 2023-09-04 14:14 ==
PROVIDERS: PCP Nurse Practitioner Family; Visit Provider Physician Assistant
DX: Z79.01 Long term (current) use of anticoagulants (principal); Z51.81 Encounter for therapeutic drug level monitoring; I48.92 Unspecified atrial flutter
CPT/HCPCS: 85610; 99211; G0463

== ENCOUNTER 2023-10-30 12:54 | Outpatient (CLI) | payer MEDICARE, SELFPAY ==
[2023-10-30 13:18] LABS: PHA INR Fingerstick 2.2 (0.9-1.1)
== END 2023-10-30 13:19 ==
LOC: ACC 12:55
PROVIDERS: PCP Nurse Practitioner Family; Visit Provider Physician Assistant
DX: Z79.01 Long term (current) use of anticoagulants (principal); Z51.81 Encounter for therapeutic drug level monitoring; Z95.2 Presence of prosthetic heart valve; Z79.899 Other long term (current) drug therapy
CPT/HCPCS: 85610; 99211; G0463

== ENCOUNTER 2023-11-13 12:56 | Outpatient (CLI) | payer MEDICARE, SELFPAY ==
[2023-11-13 14:58] LABS: PHA INR Fingerstick 2.6 (0.9-1.1)
== END 2023-11-13 15:55 ==
LOC: ACC 12:57
PROVIDERS: PCP Nurse Practitioner Family; Visit Provider Physician Assistant
DX: Z79.01 Long term (current) use of anticoagulants (principal); Z51.81 Encounter for therapeutic drug level monitoring; I48.91 Unspecified atrial fibrillation
CPT/HCPCS: 85610; 99211; G0463

== ENCOUNTER 2023-12-11 13:56 | Outpatient (CLI) | payer MEDICARE, SELFPAY ==
[2023-12-11 14:55] LABS: Basophils # 0.1 K/mm3 (0-0.2); Basophils % 0.8 % (0.1-2.0); Eosinophils # 0.1 K/mm3 (0.0-0.4); Eosinophils % 1.2 % (0.1-12.0); Hematocrit 40.8 % (42.0-52.0); Hemoglobin 13.7 g/dL (14.1-18.0); Lymphocytes # 1.4 K/mm3 (0.7-4.5); Lymphocytes % 21.6 % (10-50); Mean Corpuscular HGB Conc 33.6 g/dL (31.8-35.4); Mean Corpuscular Hemoglobin 31.2 pg (27.0-31.2); Mean Corpuscular Volume 92.8 fl (80-94); Mean Platelet Volume 8.7 fl (7.4-10.4); Monocytes # 0.5 K/mm3 (0.1-1.0); Monocytes % 7.1 % (1.7-9.3); Neutrophils # 4.6 K/mm3 (1.8-7.8); Neutrophils % 69.3 % (37.0-80.0); Platelet Count 260 K/mm3 (142-424); Red Cell Distribution Width 15.5 % (11.5-17.5); White Blood Count 6.6 K/mm3 (4.8-10.8)
[2023-12-11 15:53] LABS: Alanine Aminotransferase 30 U/L (12-78); Albumin Level 3.8 g/dl (3.5-5.0); Albumin/Globulin Ratio 1.3 (1.1-1.8); Alkaline Phosphatase 72 U/L (38-126); Anion Gap 8.1 mEq/L (5-15); Aspartate Amino Transferase 40 U/L (17-59); Bilirubin,Total 0.5 mg/dl (0.2-1.3); Blood Urea Nitrogen 32 mg/dl (9-20); Calcium 9.1 mg/dl (8.4-10.2); Carbon Dioxide 26 mmol/L (22.0-30.0); Chloride 108 mmol/L (98-107); Estimated Glomerular Filt Rate 55 ml/min (>60); GFR (African American) 66 ML/MIN (>60); Glucose 79 mg/dl (74-100); Potassium 4.1 mmoL/L (3.5-5.1); Sodium 138 mmol/L (136-145); Total Protein,Serum 6.8 g/dl (6.3-8.2)
== END 2023-12-11 23:59 | disposition home or self-care (01) ==
LOC: LAB 13:57
PROVIDERS: PCP Nurse Practitioner Family; Visit Provider Internal Medicine
DX: C61 Malignant neoplasm of prostate (principal); N52.2 Drug-induced erectile dysfunction; Z51.81 Encounter for therapeutic drug level monitoring; Z79.01 Long term (current) use of anticoagulants; I48.0 Paroxysmal atrial fibrillation; E78.2 Mixed hyperlipidemia; I11.0 Hypertensive heart disease with heart failure; I50.32 Chronic diastolic (congestive) heart failure; I25.10 Atherosclerotic heart disease of native coronary artery without angina pectoris
CPT/HCPCS: 36415; 80053; 85025

== ENCOUNTER 2023-12-21 12:38 | Outpatient (CLI) | payer MEDICARE, SELFPAY ==
--- NOTE | 2023-12-21 12:41 | CA_ITS ---
APPROVED REPORT EXAM: Comprehensive 2D, Doppler, and color-flow Echocardiogram Shuttle Final Inspector: Concetta Wang RCS, RVS Ht: 6 ft 1 in Wt: 160lbs BSA: 1.96 BP: 112/57 mmHg Indications: Mechanical MVR 2018, Pacer, Hx-CM, CAD, Afib, Near syncope 2D Dimensions Left Atrium 3.10 cm EF AP4 52.70 % GL Strain -17.0 % M-Mode Dimensions RVDd 3.40 cm (0.9-2.6) LVDd 5.01 cm (3.5-5.7) LVDs 3.30 cm (3.5-5.7) IVSd 1.01 cm (0.6-1.1) PWd 0.84 cm (0.6-1.1) EF (Teich) 62.90% FS 34.10% EDV (Teich) 118.80 mL TAPSE 1.43 (<1.7) ESV (Teich) 44.10 mL LV Diastology E Decel Time 220 (160-240 msec) E/A Ratio 2.04 MED A' 6.60 cm/s LAT A' 2.50 cm/s Aortic Valve TIM Index 1.22 cm2/m2 AoV Peak Carter. 80.0 (50-130 cm/s) AO Peak GR. 2.60 mmHg AO Mean GR. 1.30 (<5 mmHg) AO VTI 16.7 (18-25 cm) TIM (VTI) 2.43 (2.5-4.5 cm2) Mitral Valve MV A Velocity 62.0 (40-130 cm/s) E/A Ratio 2.04 MV PHT 62.0 ms Pulmonary Valve PV Peak Velocity 64.0 (50-150 cm/s) CO End VMAX 101.0 cm/s Tricuspid Valve TR P. Velocity 239.00 cm/s RAP Estimate 10.00 mmHg RVSP 32.90 mmHg Left Ventricle The left ventricle is normal size. Left ventricular systolic function is mildly decreased. There is normal left ventricular wall thickness. The septum is asynchronous. Diastolic function is indeterminate. LVEF is 45%. Right Ventricle The right ventricle is moderately to severely dilated. The right ventricular systolic function is normal. There is a device lead within the right ventricle. Atria The left atrium is not very well-visualized due to artifact from the mechanical MVR, but appears at least mildly dilated. Right atrium is severely dilated. There is no Doppler evidence of interatrial shunt. Aortic Valve The aortic valve is mildly thickened. There is no aortic valvular stenosis. Mild aortic regurgitation. Mitral Valve s/p mechanical MVR. The MV prosthesis is well-seated. Mean MV gradient is 3 mmHg (HR 62 bpm). peak E velocity 130 cm/s. PHT 90 ms. MVA by PHT is 2.4 cm2. Trace central mitral regurgitation. The severity of mitral regurgitation may be underestimated in the setting of significant shadowing artifact. Tricuspid Valve The tricuspid valve leaflets are thin and pliable. Mild to moderate tricuspid regurgitation. RVSP is 25-30 mmHg. Pulmonic Valve The pulmonary valve is normal in structure. Trace pulmonic regurgitation. Great Vessels The aortic root is normal in size. The ascending aorta is not dilated measuring 4.3 cm in diameter. IVC is normal in size and collapses >50% with inspiration. Pericardium There is no pericardial effusion. Other Information Study Quality: Technically Difficult Conclusion Technically difficult study due to poor acoustic windows and significant artifact from mechanical MVR Mild reduction in LV systolic function (LVEF 45%). Asynchronous septum. Moderate to severe RV dilation with normal RV function. Biatrial dilation. s/p mechanical MVR (Mean MV gradient is 3 mmHg (HR 62 bpm). peak E velocity 130 cm/s. PHT 90 ms. MVA by PHT is 2.4 cm2). Mild AI. Mild to moderate TR. RVSP 25-30 mmHg. Compared to prior TTE from 2021, there are no significant changes to LVEF, RV size/function, and MVR parameters. Electronically signed by : Floresita Tang MD 12/24/2023 01:42:06
== END 2023-12-21 23:59 | disposition home or self-care (01) ==
LOC: RT 12:39
PROVIDERS: PCP Nurse Practitioner Family; Visit Provider Internal Medicine
DX: Z51.81 Encounter for therapeutic drug level monitoring (principal); Z79.01 Long term (current) use of anticoagulants; I48.0 Paroxysmal atrial fibrillation; E78.2 Mixed hyperlipidemia; I11.0 Hypertensive heart disease with heart failure; I25.10 Atherosclerotic heart disease of native coronary artery without angina pectoris; I50.32 Chronic diastolic (congestive) heart failure; I42.0 Dilated cardiomyopathy; Z95.0 Presence of cardiac pacemaker
CPT/HCPCS: 93306

== ENCOUNTER 2023-12-25 13:07 | Outpatient (CLI) | payer MEDICARE, SELFPAY ==
[2023-12-25 13:34] LABS: PHA INR Fingerstick 3.6 (0.9-1.1)
== END 2023-12-25 13:36 ==
LOC: ACC 13:09
PROVIDERS: PCP Nurse Practitioner Family; Visit Provider Physician Assistant
DX: Z79.01 Long term (current) use of anticoagulants (principal); Z51.81 Encounter for therapeutic drug level monitoring; Z95.2 Presence of prosthetic heart valve; I48.92 Unspecified atrial flutter
CPT/HCPCS: 85610; 99211; G0463

== ENCOUNTER 2024-01-22 08:53 | Outpatient (CLI) | payer MEDICARE, SELFPAY ==
[2024-01-22 11:27] LABS: PHA INR Fingerstick 2.7 (0.9-1.1)
== END 2024-01-22 11:34 ==
LOC: ACC 08:55
PROVIDERS: PCP Nurse Practitioner Family; Visit Provider Internal Medicine
DX: Z79.01 Long term (current) use of anticoagulants (principal); Z51.81 Encounter for therapeutic drug level monitoring; I48.92 Unspecified atrial flutter; Z95.2 Presence of prosthetic heart valve
CPT/HCPCS: 85610; 99211; G0463

== ENCOUNTER 2024-02-01 10:35 | Emergency (ER) | payer MEDICARE, SELFPAY ==
[2024-02-01] VITALS (9 sets, daily range): BP systolic 85–111; BP diastolic 52–66; PULSE 60–62; RESP 12–16; TEMP 36.5–36.6; O2SAT 97–100; BMI 22.0
--- NOTE | 2024-02-01 10:31 | ECG_ITS ---
APPROVED REPORT Exam: Resting ECG HR:60 bpm ECG Measurements Heart Rate 60 AXES AZ 135 P 138 QRSd 177 QRS 168 QT 501 T 73 QTc 501 Conclusion ELECTRONIC ATRIAL PACEMAKER ELECTRONIC VENTRICULAR PACEMAKER ABNORMAL RHYTHM ECG UNCONFIRMED REPORT Electronically signed by : MERLINE HUDSON, 02/04/2024 06:24:59
--- NOTE | 2024-02-01 10:48 | XR_ITS ---
FINAL REPORT TECHNIQUE: Single view chest CLINICAL HISTORY: syncope FINDINGS: A single view of the chest was obtained. Patient is status post aortic or mitral valve repair. A left-sided pacemaker is in place. The heart and mediastinum are within normal limits. The lungs are clear. There is no pneumothorax. Osseous structures are unremarkable. IMPRESSION: No acute cardiopulmonary process. Reviewed, Interpreted and Dictated by Jayson Phillips MD Transcribed by Fadia Guillermo Authenticated and [facility]
--- NOTE | 2024-02-01 10:49 | HMH.EDGENADL ---
Discharge Plan Disposition Patient Disposition: Home, Self-Care Prescriptions Prescriptions: New metoprolol succinate 25 mg tablet extended release 24 hr 25 mg PO DAILY Qty: 10 0RF No Action tamsulosin 0.4 mg capsule 0.8 mg PO DAILY sildenafil 25 mg tablet 25 mg PO DAILY PRN (Reason: erectial dysfuctiom) Qty: 30 5RF metoprolol succinate 50 mg tablet extended release 24 hr 50 mg PO DAILY Qty: 30 2RF simvastatin [Zocor] 40 mg tablet 40 mg PO HS Qty: 90 1RF Hold Instructions: Doctor's Order cetirizine [Zyrtec] 10 mg tablet 10 mg PO DAILY warfarin 6 mg tablet 6 mg PO DAILY Referrals Follow up/Referrals: Provider,Referral, MD [Primary Care Provider] - See instructions Activity Restrictions/Add. Instructions Additional Instructions/Restrictions: At this time it was felt you are safe to be discharged home. If new or worsening symptoms please do not hesitate to return the emergency department. Please take your medication as prescribed, we have cut your metoprolol from 50 mg to 25 mg. Please call and schedule appoint with cardiology in 1 week as discussed. Clinical Impressions Clinical Impression: Syncope Discharge ED Provider: Denilson Jeong General Adult HPI General Chief complaint: Dizziness Stated complaint: Dizziness, fainted Time Seen by Provider: 02/01/24 10:37 History of Present Illness HPI narrative: Patient is a 5-year-old male with past medical history of coronary artery disease status post CABG, V-paced who presents emergency department for evaluation of syncope. 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 He was standing in the kitchen this morning prior to breakfast when he felt lightheaded and had to sit down having an episode of syncope with tunnel vision. No significant trauma. Patient has had this happen before where they have had to adjust his beta-ritika. No chest pain, no shortness of breath, no other acute complaints at this time. Related Data Home Medications Medication Instructions Recorded Confirmed tamsulosin 0.4 mg capsule 0.8 mg PO DAILY urinary flow 07/28/22 12/11/23 cetirizine 10 mg tablet (Zyrtec) 10 mg PO DAILY allergies 08/15/22 12/11/23 warfarin 6 mg tablet 6 mg PO DAILY Blood Thinner 09/04/23 12/11/23 Previous Rx's Medication Instructions Recorded sildenafil 25 mg tablet 25 mg PO DAILY PRN erectial 02/23/23 dysfuctiom #30 tabs metoprolol succinate 50 mg 50 mg PO DAILY #30 tabs 08/21/23 tablet,extended release 24 hr simvastatin 40 mg tablet (Zocor) 40 mg PO HS #90 tabs 09/04/23 metoprolol succinate 25 mg 25 mg PO DAILY Heart rhythm #10 02/01/24 tablet,extended release 24 hr tabs Allergies Allergy/AdvReac Type Severity Reaction Status Date / Time Penicillins [PENICILLINS] Allergy Mild Verified 02/01/24 11:05 [facility] Disclaimer: The information contained in this section may have been updated after the patient was seen, as this information can be updated by other users. Medical History Near syncope Osteopenia Family history of osteoporosis Abnormal result of cardiovascular function study Prostate cancer Erectile dysfunction Gynecomastia Breast pain, left Breast asymmetry on examination Dizziness Cardiac pacemaker in situ Social History Smoking Status: Never smoker alcohol intake: never substance use type: denies use current occupational status: other Travel in the last 8 weeks: Inside the [place] household members: spouse and children housing: house caffeine: Yes ROS Obtained: Yes Systems reviewed as appropriate & no additional complaints except as documented Physical Exam General General appearance: alert and in no apparent distress Head Head exam: atraumatic and normocephalic Eye Eye exam: Present PERRL and EOMI ENT ENT exam: Present mucous membranes moist Neck Neck exam: Present normal inspection Chest Chest inspection: Present normal inspection and symmetric chest wall rise Respiratory Respiratory exam: Present normal lung sounds bilaterally; Absent respiratory distress Cardiovascular Cardiovascular exam: Present regular rate and normal rhythm Abdominal Exam Abdominal exam: Present soft; Absent tenderness Extremities Exam Extremities exam: Present normal inspection Neurological Exam Neurological exam: Present alert and CN II-XII intact; Absent motor sensory deficit Psychiatric Psychiatric exam: Present normal affect Skin Skin exam: Present warm and dry Medical Decision Making Royal Inquiry Pt receiving controlled substance: No Vital Signs: 02/01/24 10:37 02/01/24 11:00 02/01/24 11:21 Temperature 97.7 F Temperature Source Oral Pulse Rate 60 60 Pulse Rate [Left Radial] 60 Respiratory Rate 16 Blood Pressure 85/55 L 95/53 L Blood Pressure [Right Arm] 107/63 L Blood Pressure Mean 65 66 Blood Pressure Mean [Right Arm] 77 Blood Pressure Source [Right Arm] Automatic Cuff Blood Pressure Position [Right Arm] Sitting 02 Sat by Pulse Oximetry 99 98 99 Oxygen Delivery Method Room Air Room Air Room Air 02/01/24 11:30 02/01/24 12:00 02/01/24 12:30 Temperature Temperature Source Pulse Rate 60 60 60 Pulse Rate [Left Radial] Respiratory Rate 12 16 Blood Pressure 91/52 L 96/55 L 107/66 L Blood Pressure [Right Arm] Blood Pressure Mean 67 74 79 Blood Pressure Mean [Right Arm] Blood Pressure Source [Right Arm] Blood Pressure Position [Right Arm] 02 Sat by Pulse Oximetry 98 97 100 Oxygen Delivery Method Room Air 02/01/24 13:00 02/01/24 13:30 Temperature Temperature Source Pulse Rate 60 61 Pulse Rate [Left Radial] Respiratory Rate Blood Pressure 111/66 105/63 L Blood Pressure [Right Arm] Blood Pressure Mean 86 77 Blood Pressure Mean [Right Arm] Blood Pressure Source [Right Arm] Blood Pressure Position [Right Arm] 02 Sat by Pulse Oximetry 98 99 Oxygen Delivery Method Room Air Room Air Lab Data Lab Results 02/01/24 10:45: WBC 9.4, RBC 4.76, Hgb 14.6, Hct 45.5, MCV 95.7 H, MCH 30.8, MCHC 32.2, RDW 15.2, Plt Count 247, MPV 8.8, Neut % (Auto) 78.8, Lymph % (Auto) 12.5, [place] % (Auto) 7.4, Eos % (Auto) 0.5, Baso % (Auto) 0.7, Neut # (Auto) 7.4, Lymph # (Auto) 1.2, [place] # (Auto) 0.7, Eos # (Auto) 0.1, Baso # (Auto) 0.1, Sodium 138, Potassium 4.6, Chloride 106, Carbon Dioxide 30, Anion Gap 6.6, BUN 32 H, Creatinine 1.50 H, Estimated Creat Clear 49, Estimated GFR 46 L, Est GFR ( Amer) 56 L, Glucose 97, Calcium 8.7, Magnesium 2.0, Total Bilirubin 0.6, AST 35, ALT 27, Alkaline Phosphatase 48, Total Protein 7.1, Albumin 3.8, Globulin 3.3 H, Albumin/Globulin Ratio 1.2 02/01/24 10:45 02/01/24 10:45 Orders (Tests/Meds): ED MEDICATIONS Discontinued Medications Generic Name Dose Route Start Last Admin Trade Name Erin PRN Reason Stop Dose Admin Lactated Ringer's 1,000 mls @ 999 mls/hr 02/01/24 10:48 02/01/24 11:03 Lactated Ringer's 1000 Ml Bag IV 02/01/24 11:48 999 mls/hr .Q1H1M ONE Administration ORDERS Category Date Time Status Cardiology Consult [Consult to Cardiology] [CONS] Cons 02/01/24 12:08 Active Routine CA echo limited Stat Exams 02/01/24 12:44 Completed CXR --portable [XR chest portable] Stat Exams 02/01/24 10:48 Completed POCUS Point of Care (ER Only) Stat Exams 02/01/24 10:49 Completed CBC w/Auto Diff [Complete Blood Count Auto Diff] Stat Lab 02/01/24 10:45 Completed CMP [Comprehensive Metabolic Panel] Stat Lab 02/01/24 10:45 Completed MG [Magnesium] Stat Lab 02/01/24 10:45 Completed ECG Data Tracing #1: Independently interpreted by me rate is 60, rhythm is regular, V paced, Sgarbossa negative. QTc 501. Medical Decision Narrative: Patient is a 68-year-old male with past medical history described above who presents emergency department for evaluation of syncope. Patient is hemodynamically stable nontoxic-appearing upon arrival, afebrile. Patient likely had multifactorial vasovagal syncope including chronic strenuous exertion in the heat at baseline although not in the heat today, not eating yet, V paced at 60 bpm which may not be enough to compete with his blood pressure demand. Differential also includes electrolyte abnormalities, pericardial effusion, among others. Workup will be conducted with hematologic labs, chest x-ray, EKG, [id number] ultrasound. Initial inventions include crystalloid bolus. Initial workup reviewed by me, hematologic labs are nonactionable, no JENNIFER, slightly worse creatinine that is being volume repleted, no transaminitis, no critical electrolyte abnormality. Chest x-ray informally interpreted by me, no acute cardiopulmonary process. Echo that was performed on by Dr. Tang. Upon repeat evaluation patient was well-appearing, ambulatory bedside. Cardiology evaluated the patient, got echo at bedside and interrogated pacer and deemed he was appropriate for outpatient management at this time. We will cut his metoprolol in half to 25 mg once a day and he will follow-up with cardiology in 1 week. Critical Care Critical Care Time Critical Care Time: No
[2024-02-01] MEDS: LACTATED RINGERS 1000ML 1,000 ML 999 ML IV (11:03)
[2024-02-01 11:05] LABS: Chloride 106 mmol/L (98-107); Potassium 4.6 mmoL/L (3.5-5.1); Sodium 138 mmol/L (136-145)
--- NOTE | 2024-02-01 11:05 | PC.NURSE ---
xr at bedside
[2024-02-01 11:08] LABS: Alanine Aminotransferase 27 U/L (12-78); Albumin Level 3.8 g/dl (3.5-5.0); Albumin/Globulin Ratio 1.2 (1.1-1.8); Alkaline Phosphatase 48 U/L (38-126); Anion Gap 6.6 mEq/L (5-15); Aspartate Amino Transferase 35 U/L (17-59); Bilirubin,Total 0.6 mg/dl (0.2-1.3); Blood Urea Nitrogen 32 mg/dl (9-20); Calcium 8.7 mg/dl (8.4-10.2); Carbon Dioxide 30 mmol/L (22.0-30.0); Creatinine Clearance Estimated 49 mL/min (50-200); Estimated Glomerular Filt Rate 46 ml/min (>60); GFR (African American) 56 ML/MIN (>60); Globulin 3.3 g/dL (1.3-3.2); Glucose 97 mg/dl (74-100); Total Protein,Serum 7.1 g/dl (6.3-8.2)
[2024-02-01 11:15] LABS: Basophils # 0.1 K/mm3 (0-0.2); Basophils % 0.7 % (0.1-2.0); Eosinophils # 0.1 K/mm3 (0.0-0.4); Eosinophils % 0.5 % (0.1-12.0); Hematocrit 45.5 % (42.0-52.0); Hemoglobin 14.6 g/dL (14.1-18.0); Lymphocytes # 1.2 K/mm3 (0.7-4.5); Lymphocytes % 12.5 % (10-50); Mean Corpuscular HGB Conc 32.2 g/dL (31.8-35.4); Mean Corpuscular Hemoglobin 30.8 pg (27.0-31.2); Mean Corpuscular Volume 95.7 fl (80-94); Mean Platelet Volume 8.8 fl (7.4-10.4); Monocytes # 0.7 K/mm3 (0.1-1.0); Monocytes % 7.4 % (1.7-9.3); Neutrophils # 7.4 K/mm3 (1.8-7.8); Neutrophils % 78.8 % (37.0-80.0); Platelet Count 247 K/mm3 (142-424); Red Blood Count 4.76 M/mm3 (4.60-6.20); Red Cell Distribution Width 15.2 % (11.5-17.5); White Blood Count 9.4 K/mm3 (4.8-10.8)
--- NOTE | 2024-02-01 12:11 | PC.NURSE ---
cardiology aware of consult
--- NOTE | 2024-02-01 12:12 | PC.NURSE ---
Dr. Jeong at BS for update on POC
--- NOTE | 2024-02-01 12:23 | PC.NURSE ---
assisted pt to the restroom and back to his room. call light within reach. family at bedside. updated on plan of care. no questions or concerns voiced.
--- NOTE | 2024-02-01 12:37 | PC.NURSE ---
CARDIOLOGY AT BEDSIDE
--- NOTE | 2024-02-01 12:44 | CA_ITS ---
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 Ordered as a limited per Vitor to evaluate EF and MV. Recent echo 12/21/23 2D Dimensions EF AP4 59.00 % GL Strain -24.0 % M-Mode Dimensions RVDd 3.25 cm (0.9-2.6) LA Diam 3.73 cm (1.9-4.0) LVDd 4.97 cm (3.5-5.7) LVDs 3.39 cm (3.5-5.7) IVSd 0.89 cm (0.6-1.1) PWd 0.82 cm (0.6-1.1) EF (Teich) 59.60% FS 31.80% EDV (Teich) 116.60 mL ESV (Teich) 47.10 mL Aortic Valve AO VTI 38.7 (18-25 cm) Mitral Valve MV PHT 104.0 ms Other Information Study Quality: Fair Conclusion This is a limited TTE to evaluate for lightheadedness and dizziness in the setting of mechanical MVR. Limited windows were obtained. Technically difficult study due to artifact from MVR. The mitral valve prosthesis appears well-seated. The metallic cusps are not well-visualized due to artifact. Grossly, there are no visualized mobile echodensities noted. No significant mitral regurgitation is noted. Peak E velocity 130 cm/s. PHT 110 ms. mean MV gradient 3 mmHg (HR 65 bpm). Overall, the MV parameters are acceptable and unchanged from prior recent TTE (12/21/2023) Electronically signed by : Floresita Tang MD 02/03/2024 19:53:27
--- NOTE | 2024-02-01 12:47 | PC.NURSE ---
CARDIOLOGY AT BEDSIDE TO INTERROGATE PACEMAKER
--- NOTE | 2024-02-01 13:13 | P.CONCA_ITS ---
History of Present Illness History of Present Illness Consult date: 02/01/24 Requesting physician: Denilson Jeong Chief complaint: syncope Additional Medical History:: 1. Hyperlipidemia -on statin 2. HFrEF/Non-ischemic CM -EF 45% by echo last month -SUPERVISOR PASTRY-P in situ 3. Mechanical MVR, placed 2017 -on coumadin with therapeutic INR 4. Mild CAD by [facility], 08/2022 and 2017 -on statin 5. History of A. Flutter -acceptable control on metoprolol. Limited by low BP 6. RK -less than 50% ICA stenosis by ultrasound, 08/08/2022 7. Prostate cancer, followed by urology History of present illness: 68-year-old white male with history as noted above presented to the ER for near syncopal episode this morning. He was standing in the kitchen getting ready for breakfast 20 had an episode of lightheadedness and tunnel vision with near syncope. No trauma noted. Patient's reports that EMS confirmed low blood pressure (noted on their home monitoring) and recommended transportation for further evaluation. ER workup included chest x-ray with no acute abnormality. Lab work showed mild dehydration. Patient and relates an increase in stress recently with daughter's wedding, baling hay and extreme heat and probably not drinking as much as he should to stay hydrated. Pacemaker interrogated in the ER with no evidence of arrhythmias. Limited echocardiogram today shows EF around 45% with mechanical mitral valve functioning appropriately. Essentially unchanged from echocardiogram on 12/21/2023. Near syncopal episode likely related to orthostatic hypotension. [facility] Disclaimer: The information contained in this section may have been updated after the patient was seen, as this information can be updated by other users. Medical History Near syncope Osteopenia Family history of osteoporosis Abnormal result of cardiovascular function study Prostate cancer Erectile dysfunction Gynecomastia Breast pain, left Breast asymmetry on examination Dizziness Cardiac pacemaker in situ Social History Smoking Status: Never smoker alcohol intake: never substance use type: denies use current occupational status: other Travel in the last 8 weeks: [place] the [place] household members: spouse and children housing: house caffeine: Yes Review of Systems Review of Systems Review of systems:: pertinent systems reviewed and negative unless documented below Exam Data for Last 24 hours Vital signs and Labs for Last 24 Hours: Temp Pulse Resp BP Pulse Ox O2 Del Method 97.7 F 60 16 96/55 L 97 Room Air 02/01/24 10:37 02/01/24 12:00 02/01/24 12:00 02/01/24 12:00 02/01/24 12:00 02/01/24 11:21 Laboratory Results - last 24 hr 02/01/24 10:45: WBC 9.4, RBC 4.76, Hgb 14.6, Hct 45.5, MCV 95.7 H, MCH 30.8, MCHC 32.2, RDW 15.2, Plt Count 247, MPV 8.8, Neut % (Auto) 78.8, Lymph % (Auto) 12.5, [place] % (Auto) 7.4, Eos % (Auto) 0.5, Baso % (Auto) 0.7, Neut # (Auto) 7.4, Lymph # (Auto) 1.2, [place] # (Auto) 0.7, Eos # (Auto) 0.1, Baso # (Auto) 0.1, Sodium 138, Potassium 4.6, Chloride 106, Carbon Dioxide 30, Anion Gap 6.6, BUN 32 H, Creatinine 1.50 H, Estimated Creat Clear 49, Estimated GFR 46 L, Est GFR ( Amer) 56 L, Glucose 97, Calcium 8.7, Magnesium 2.0, Total Bilirubin 0.6, AST 35, ALT 27, Alkaline Phosphatase 48, Total Protein 7.1, Albumin 3.8, Globulin 3.3 H, Albumin/Globulin Ratio 1.2 I & O for Last 24 hours: Intake & Output 01/30/24 01/31/24 02/01/24 02/02/24 11:59 11:59 11:59 11:59 Weight 167 lb Constitutional Constitutional: no acute distress *Routine Respiratory Exam Respiratory: Present CTA bilaterally *Routine Cardiovascular Exam Cardiovascular: Present RRR and click *Routine Extremities Exam Extremities: Absent edema *Routine Neurological Exam Neurological: Present alert, oriented X3 and CN II-XII intact Meds Home Medications and Allergies Home Medications Medication Instructions Recorded Confirmed Type tamsulosin 0.4 mg capsule 0.8 mg PO DAILY urinary flow 07/28/22 12/11/23 History cetirizine 10 mg tablet (Zyrtec) 10 mg PO DAILY allergies 08/15/22 12/11/23 History sildenafil 25 mg tablet 25 mg PO DAILY PRN erectial 02/23/23 12/11/23 Rx dysfuctiom #30 tabs metoprolol succinate 50 mg 50 mg PO DAILY #30 tabs 08/21/23 12/11/23 Rx tablet,extended release 24 hr simvastatin 40 mg tablet (Zocor) 40 mg PO HS #90 tabs 09/04/23 12/11/23 Rx warfarin 6 mg tablet 6 mg PO DAILY Blood Thinner 09/04/23 12/11/23 History New Prescriptions to Start Prescriptions: Allergies Allergy/AdvReac Type Severity Reaction Status Date / Time Penicillins [PENICILLINS] Allergy Mild Verified 02/01/24 11:05 Assessment and Plan *Assessment and plan (1) Near syncope: Status: Acute Category: Medical Code(s): R55 - Syncope and collapse (2) Syncope: Status: Acute Qualifiers: Syncope type: unspecified Qualified Code(s): R55 - Syncope and collapse Category: Medical Code(s): R55 - Syncope and collapse (3) Biventricular cardiac pacemaker in situ: Status: Chronic Category: Medical Code(s): Z95.0 - Presence of cardiac pacemaker (4) H/O mitral valve replacement with mechanical valve: Status: Chronic Category: Surgical Code(s): Z95.2 - Presence of prosthetic heart valve Plan 1. Near syncope/syncope -likely due to dehydration and low BP -pacer interrogated without arrhythmias or malfunction -check limited echo to assess EF and valve status -mild dehydration noted with BUN 32 and Cr 1.5 2. 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 Mechanical MVR, placed 2017 -on coumadin with therapeutic INR 4. Mild CAD by [facility], 08/2022 and 2017 -on statin 5. History of A. Flutter -acceptable control on metoprolol 6. RK -less than 50% ICA stenosis by ultrasound, 08/08/2022 7. History of Prostate cancer, followed by urology Pacer interrogated without arrhythmias or malfunction. Limited echocardiogram unchanged compared to 12/21/2023 study with EF 45% and mechanical mitral valve functioning appropriately. Recommend decreasing metoprolol succinate to 25 mg daily. Follow up in office next week
--- NOTE | 2024-02-01 13:13 | PC.NURSE ---
ECHO AT BEDSIDE
--- NOTE | 2024-02-01 14:20 | PC.NURSE ---
DR CANO AT BEDSIDE TO UPDATE PT AND FAMILY
== END 2024-02-01 14:44 | disposition home or self-care (01) ==
PROVIDERS: Emergency Provider Emergency Medicine
DX: R55 Syncope and collapse (principal); Z95.0 Presence of cardiac pacemaker; Z95.1 Presence of aortocoronary bypass graft
CPT/HCPCS: 71045; 80053; 83735; 85025; 93005; 93308; 96360; 99285; J7120

== ENCOUNTER 2025-01-20 10:36 | Outpatient (CLI) | payer MEDICARE, SELFPAY ==
--- OUTSIDE RECORDS SUMMARY | 2025-01-20 10:40 | XMS_ITS | Continuity of Care Document ---
Author Organization [facility] Address [address] [place] [address] Phone Care Team Providers Care Housetrailer Servicer Name Role Phone Mendoza Benitez MD, Lei Primary Care Provider + Encounters Date Type Department Care Team Description 11/12/2024 10:40 AM EDT Office Visit [facility] Urology [address] [phone] Brandon Acevedo MD Cancer of prostate w/low recurrence risk (T1-2a, [place]<7 & PSA<10) (HCC) (Primary Dx); Lower urinary tract symptoms (LUTS) 11/05/2024 11:45 AM EDT - 11/05/2024 11:59 PM EDT Hospital Encounter [facility] [address] [place] [address] Cancer of prostate w/low recurrence risk (T1-2a, [place]<7 & PSA<10) (HCC) Discharge Disposition: Home or Self Care 08/05/2024 Refill [facility] [address] [place] [address] Elizabeth Jasso APRN Medication Refill 06/10/2024 Refill [facility] [place] [address] Jazmin Hampton APRN Medication Refill 05/10/2024 9:00 AM EDT Procedure visit [address] [address] Brandon Acevedo MD Cancer of prostate w/low recurrence risk (T1-2a, [place]<7 & PSA<10) (HCC) (Primary Dx); Gross hematuria 05/08/2024 8:37 AM EDT - 05/08/2024 11:59 PM EDT [facility] [address], [place] [address] Pk Vega PA Gross hematuria Discharge Disposition: Home or Self Care 05/07/2024 Travel 04/18/2024 11:20 AM EDT Office Visit [address] [phone] Pk Vega PA Abnormal urine (Primary Dx); Gross hematuria; Lower urinary tract symptoms (LUTS) 04/16/2024 Orders Only [address] [address] Brandon Acevedo MD Elevated PSA (Primary Dx) 04/12/2024 Orders Only [address] [address] Brandon Acevedo MD Cancer of prostate w/low recurrence risk (T1-2a, Dariel[place]<7 & PSA<10) (HCC) (Primary Dx); Elevated PSA 04/12/2024 1:13 PM EDT - 04/12/2024 11:59 PM EDT Hospital Encounter [facility] [address], [place] [address] Cancer of prostate w/low recurrence risk (T1-2a, Dariel[place]<7 & PSA<10) (HCC); Elevated PSA Discharge Disposition: Home or Self Care 04/11/2024 Refill [facility] [address] [place] [phone] Jazmin Hampton, SEWER PIPE LAYER HELPER Medication Refill 02/26/2024 Refill [facility] [address] [place] [address] Elizabeth Jasso, SEWER PIPE LAYER HELPER Medication Refill 02/12/2024 Refill [facility] [address] [address] Jazmin Hampton, SEWER PIPE LAYER HELPER Medication Refill 02/12/2024 Refill [facility] [address] [place] [address] Elizabeth Jasso, SEWER PIPE LAYER HELPER Medication Refill 12/11/2023 Refill [facility] [address] [phone] Jazmin Hampton, SEWER PIPE LAYER HELPER Medication Refill 11/13/2023 Refill [facility] Urology NPTFTT [address] [place] [phone] Brandon Acevedo MD Medication Refill 11/09/[address] [phone] Brandon Acevedo MD Prior Authorization 11/09/2023 1:20 PM EDT Office [facility] [address] [phone] Brandon Acevedo MD Feeling of incomplete bladder emptying (Primary Dx); Cancer of prostate w/low recurrence risk (T1-2a, Dariela<7 & PSA<10) (HCC); Lower urinary tract symptoms (LUTS) 11/03/2023 1:38 PM EDT - 11/03/2023 11:59 PM EDT Hospital Encounter [facility] [address] [place] [address] Elevated PSA; Cancer of prostate w/low recurrence risk (T1-2a, Dariela<7 & PSA<10) ([facility]) Discharge Disposition: Home or Self Care 10/11/2023 Refill [facility] Urology [address] [phone] Jazmin Hampton APRN Medication Refill 10/02/2023 Telephone [facility] Urology NPT[facility] [address] [place] [address] Brandon Acevedo MD Schedule Appointment 08/08/2023 Refill [facility] Urology [address] [phone] Jazmin [place] APRN Medication Refill 06/12/2023 Refill [facility] [address] [address] Brandon Acevedo MD Medication Refill 05/26/[address] [address] Brandon Acevedo MD Prior Authorization (Tolterodine 4mg capsule) 05/23/2023 10:20 AM EDT Office Visit [address] [address] Brandon Acevedo MD Cancer of prostate w/low recurrence risk (T1-2a, Dariela<7 & PSA<10) ([facility]) (Primary Dx); Lower urinary tract symptoms (LUTS) 05/22/2023 8:37 AM EDT - 05/22/2023 11:59 PM EDT Hospital Encounter [facility] [address], [place] [address] Cancer of prostate w/low recurrence risk (T1-2a, Dariela<7 & PSA<10) ([facility]) Discharge Disposition: Home or Self Care 02/20/2023 10:20 AM EDT Office Visit [facility] [address] [address] Brandon Acevedo MD Cancer of prostate w/low recurrence risk (T1-2a, [place]<7 & PSA<10) (HCC) (Primary Dx) 02/16/2023 Travel 02/16/2023 9:16 AM EDT - 02/16/2023 11:59 PM EDT Hospital Encounter [facility] [address], [place] [address] Cancer of prostate w/low recurrence risk (T1-2a, [place]<7 & PSA<10) (HCC) Discharge Disposition: Home or Self Care 11/30/2022 2:20 PM EDT Office Visit [facility] [address] [phone] Michelle Morales PA-C Abnormal urine (Primary Dx); Benign prostatic hyperplasia with urinary frequency; Cancer of prostate w/low recurrence risk (T1-2a, Dariel[place]<7 & PSA<10) (HCC); Lower urinary tract symptoms (LUTS) 11/25/2022 Orders Only [facility] Urology [address] [place] [address] Brandon Acevedo MD Cancer of prostate w/low recurrence risk (T1-2a, [place]<7 & PSA<10) (HCC) (Primary Dx) 11/24/2022 Travel 11/24/2022 1:04 PM EDT - 11/24/2022 11:59 PM EDT Hospital Encounter [facility] [address] [place] [address] Cancer of prostate w/low recurrence risk (T1-2a, Dariel[place]<7 & PSA<10) (HCC) Discharge Disposition: Home or Self Care 06/02/2022 1:40 PM EDT Office Visit [address] [phone] Brandon Acevedo MD Cancer of prostate w/low recurrence risk (T1-2a, Dariela<7 & PSA<10) (HCC) (Primary Dx) 05/31/2022 Refill [facility] [place] [address] Brandon Acevedo MD Medication Refill 05/27/2022 Orders Only [facility] Urology [address] [address] Brandon Acevedo MD Cancer of prostate w/low recurrence risk (T1-2a, Dariela<7 & PSA<10) (HCC) (Primary Dx) 05/26/2022 Travel 05/26/2022 1:10 PM EDT - 05/26/2022 11:59 PM EDT Hospital Encounter [facility] [address], [place] [phone] Cancer of prostate w/low recurrence risk (T1-2a, Dariel[place]<7 & PSA<10) (HCC) Discharge Disposition: Home or Self Care 05/19/2022 Orders Only [facility] [address] [phone] Brandon Acevedo MD Cancer of prostate w/low recurrence risk (T1-2a, [place]<7 & PSA<10) (HCC) (Primary Dx) 05/19/2022 Telephone [facility] [address] [place] [address] Brandon Acevedo MD Patient Question 05/02/2022 Refill [facility] [address] [phone] Brandon Acevedo MD Medication Refill 04/04/2022 Orders Only [facility] [address] [phone] Gracia See MA Benign prostatic hyperplasia with urinary frequency (Primary Dx) 03/15/2022 Telephone [facility] [address] [place] [address] Brandon Acevedo MD Results 03/10/2022 Travel 03/10/2022 3:09 PM EDT - 03/10/2022 11:59 PM EDT Hospital Encounter [facility] [address], [place] [phone] Cancer of prostate w/low recurrence risk (T1-2a, [place]<7 & PSA<10) (HCC) Discharge Disposition: Home or Self Care 02/28/2022 Refill [facility] [address] [place] [phone] Brandon Acevedo MD Medication Refill 02/01/[address] [place] [phone] Brandon Acevedo MD Medication Refill 01/03/[address] [place] [phone] Brandon Acevedo MD Medication Refill 12/07/[address] [place] [phone] Brandon Acevedo MD Medication Refill 11/26/2021 1:30 PM EDT Office Visit [address] [place] [phone] Brandon Acevedo MD Cancer of prostate w/low recurrence risk (T1-2a, Dariel[place]<7 & PSA<10) (HCC) (Primary Dx) 11/04/[address] [place] [phone] Brandon Acevedo MD Medication Refill 10/25/[address] [place] [address] Brandon Acevedo MD Results 10/12/2021 3:40 PM EST Procedure visit [address] [place] [phone] Brandon Acevedo MD Elevated PSA (Primary Dx) 09/08/2021 Refill [facility] [address] [facility] [address] [place] [address] Brandon Acevedo MD Medication Refill 08/30/2021 Orders Only [facility] [place] [address] [place] [address] [address] [place] [address] Brandon Acevedo MD 08/27/2021 2:18 PM EST - 08/27/2021 11:59 PM EST Hospital Encounter [facility] [address] [place] [address] Elevated PSA Discharge Disposition: Home or Self Care 08/27/2021 Orders Only [facility] [address] [place] [phone] Brandon Acevedo MD Elevated PSA (Primary Dx) 08/27/2021 Travel 06/08/2021 10:15 AM EDT - 06/08/2021 11:59 PM EDT Hospital Encounter [facility] [address] [facility] [address] [place] [address] Prostate cancer screening Discharge Disposition: Home or Self Care 06/08/2021 Travel 06/08/2021 9:20 AM EDT Office Visit [facility] Urology [address] [place] [phone] Brandon Acevedo MD Benign prostatic hyperplasia with urinary frequency (Primary Dx); Prostate cancer screening; Elevated PSA 04/10/2015 1:00 PM EDT - 04/10/2015 1:30 PM EDT Surgery [facility] [address] [place] [address] Petey Jimenez MD KNEE ARTHROSCOPY MENISCECTOMY/REPAIR (ALSO COVERS ARTHROSCOPIC INCISION AND DRAINAGE/DEBRIDEMENT) 04/10/2015 1:42 PM EDT Anesthesia Event [facility] [address] [place] [address] Eddi Dumont MD Rice, Richard B, MD 04/10/2015 11:07 AM EDT - 04/10/2015 3:40 PM EDT Hospital Encounter [facility] [address] [place] [address] Petey Jimenez MD Discharge Disposition: Home or Self Care Allergies Active Allergy Reactions Criticality Noted Date Comments Penicillins Other (See Comments) High 04/06/2015 Had reaction as a child, told not to take it again Medications simvastatin (ZOCOR) 20 mg Oral Tablet Take by mouth nightly. Active carvedilol (COREG) 6.25 mg Oral Tablet Take 6.25 mg by mouth 2 times daily (with meals). Active cetirizine (ZYRTEC) 10 mg Oral TabletIndicatio ns:seasonal allergic rhinitis Take by mouth daily. Indications: Seasonal Allergic Rhinitis Active aspirin 81 mg Oral Tablet, Chewable Take 81 mg by mouth daily. Active metoprolol succinate ER (TOPROL-XL) 100 mg Oral Tablet Sustained Release 24 hr Take 50 mg by mouth daily. 04/12/2021 Active warfarin (COUMADIN) 4 mg Oral Tablet Take 4 mg by mouth daily. 05/17/2021 Active pantoprazole (PROTONIX) 20 mg Oral Tablet, Delayed Release (E.C.) Take 20 mg by mouth daily. 05/24/2021 Active sildenafiL (VIAGRA) 50 mg Oral Tablet Take 25 mg by mouth every 12 hours. Active metoprolol succinate (TOPROL-XL) 25 mg Oral Tablet Sustained Release 24 hr 02/07/2024 Activ e tamsulosin (FLOMAX) 0.4 mg Oral CapsuleIndicati ons:Cancer of prostate w/low recurrence risk (T1-2a, Dariela<7 & PSA<10) (HCC) Take 2 Capsules by mouth nightly. 180 Capsule 3 11/12/2024 Active tolterodine (DETROL LA) 4 mg Oral Capsule, Sust. Release 24 hrIndications:L ower urinary tract symptoms (LUTS) Take 1 Capsule by mouth daily. 90 Capsule 2 11/12/2024 Active Active Problems Problem Noted Date Diagnosed Date Elevated PSA 10/02/2023 Social History Smoking Status as of 01/20/2025 Tobacco Use Types Packs/Day Years Used Date Smoking Tobacco: Never Assessed Sex and Gender Information Value Date Recorded Sex Assigned at Not on file Legal Sex Male 11:51 AM EDT Gender Identity Not on file Sexual Orientation Not on file Last Filed Vital Signs Vital Sign Reading Time Taken Comments Blood Pressure 126/62 11/12/2024 10:31 AM EDT Pulse 54 11/12/2024 10:31 AM EDT Temperature 36.3 C (97.4 F) 11/12/2024 10:31 AM EDT Respiratory Rate 16 11/09/2023 1:28 PM EDT Oxygen Saturation 94% 11/12/2024 10:31 AM EDT Inhaled Oxygen Concentration - - Weight 77.8 kg (171 lb 9.6 oz) 11/12/2024 10:31 AM EDT Height 185.4 cm (6' 1 ) 11/12/2024 10:31 AM EDT Body Mass Index 22.64 11/12/2024 10:31 AM EDT Plan of Treatment Upcoming Encounters Date Type Department Care Team (Late st Contact Info) Description 05/13/2025 10:20 AM EDT Office Visit [facility] [address] [place] [phone] [place] [address] [place] [address] [place] [address] Procedures Procedure Name Priority Date/Time Associated Diagnosis Comments SEP URINALYSIS POC Routine 11/12/2024 10 :24 AM EDT Cancer of prostate w/low recurrence risk (T1-2a, Dariel[place]<7 & PSA<10) (HCC) PROSTATE SPECIFIC ANTIGEN (TUMOR MARKER) Routine 11/05/2024 11:48 AM EDT Cancer of prostate w/low recurrence risk (T1-2a, [place]iel[place]<7 & PSA<10) (HCC) SEP URINALYSIS POC Routine 05/10/2024 9: 34 AM EDT Gross hematuria CT ABDOMEN PELVIS HEMATURIA/RENAL MASS PROTOCOL Routine 05/08/2024 9:04 AM EDT Gross hematuria CREATININE ISTAT Routine 05/08/2024 8:51 AM EDT SCANNED LABS 05/03/2024 1:15 PM EDT URINALYSIS Routine 04/18/2024 12:51 PM EDT Abnormal urine Gross hematuria SEP URINALYSIS POC Routine 04/18/2024 11 :33 AM EDT Gross hematuria PROSTATE SPECIFIC ANTIGEN (TUMOR MARKER) Routine 04/12/2024 1:23 PM EDT Cancer of prostate w/low recurrence risk (T1-2a, Dariela<7 & PSA<10) (HCC) Elevated PSA POCT BLADDER SCAN Routine 11/09/2023 1:3 2 PM EDT Feeling of incomplete bladder emptying SEP URINALYSIS POC Routine 11/09/2023 1: 19 PM EDT Cancer of prostate w/low recurrence risk (T1-2a, Dariela<7 & PSA<10) (HCC) Lower urinary tract symptoms (LUTS) PROSTATE SPECIFIC ANTIGEN (TUMOR MARKER) Routine 11/03/2023 1:38 PM EDT Elevated PSA Cancer of prostate w/low recurrence risk (T1-2a, [place]<7 & PSA<10) (HCC) SEP URINALYSIS POC Routine 05/23/2023 10 :34 AM EDT Cancer of prostate w/low recurrence risk (T1-2a, [place]<7 & PSA<10) (HCC) Lower urinary tract symptoms (LUTS) PROSTATE SPECIFIC ANTIGEN (TUMOR MARKER) Routine 05/22/2023 8:37 AM EDT Cancer of prostate w/low recurrence risk (T1-2a, Dariela<7 & PSA<10) (HCC) SEP URINALYSIS POC Routine 02/20/2023 10 :10 AM EDT Cancer of prostate w/low recurrence risk (T1-2a, Dariela<7 & PSA<10) (HCC) PROSTATE SPECIFIC ANTIGEN (TUMOR MARKER) Routine 02/16/2023 9:19 AM EDT Cancer of prostate w/low recurrence risk (T1-2a, [place]<7 & PSA<10) (HCC) URINALYSIS Routine 11/30/2022 3:19 PM EDT Abnormal urine URINE CULTURE (NO STAIN) Routine 11/30/2022 3:19 PM EDT Abnormal urine SEP URINALYSIS POC Routine 11/30/2022 2: 23 PM EDT Abnormal urine PROSTATE SPECIFIC ANTIGEN (TUMOR MARKER) Routine 11/24/2022 1:14 PM EDT Cancer of prostate w/low recurrence risk (T1-2a, [place]<7 & PSA<10) (HCC) SEP URINALYSIS POC Routine 06/02/2022 1: 35 PM EDT Cancer of prostate w/low recurrence risk (T1-2a, Dariela<7 & PSA<10) (HCC) PROSTATE SPECIFIC ANTIGEN (TUMOR MARKER) Routine 05/26/2022 1:15 PM EDT Cancer of prostate w/low recurrence risk (T1-2a, [place]<7 & PSA<10) (HCC) PROSTATE SPECIFIC ANTIGEN (TUMOR MARKER) Routine 03/10/2022 3:10 PM EDT Cancer of prostate w/low recurrence risk (T1-2a, [place]<7 & PSA<10) (HCC) SEP URINALYSIS POC Routine 11/26/2021 1: 35 PM EDT Cancer of prostate w/low recurrence risk (T1-2a, [place]<7 & PSA<10) (HCC) PATHOLOGY TISSUE REQUEST Routine 10/12/2021 4:15 PM EST Elevated PSA SEP URINALYSIS POC Routine 10/12/2021 3: 30 PM EST Elevated PSA PROSTATE SPECIFIC ANTIGEN (TUMOR MARKER) Routine 08/27/2021 2:21 PM EST Elevated PSA PROSTATE SPECIFIC ANTIGEN (SCREENING) Routine 06/08/2021 10:15 AM EDT Prostate cancer screening SEP URINALYSIS POC Routine 06/08/2021 9: 39 AM EDT Benign prostatic hyperplasia with urinary frequency POCT BLADDER SCAN Routine 06/08/2021 9:3 7 AM EDT Benign prostatic hyperplasia with urinary frequency SCANNED EKG 04/17/2015 2:49 PM EDT SCANNED RHYTHM STRIPS 04/17/2015 2:49 PM EDT KNEE ARTHROSCOPY MENISCECTOMY/REPAIR (ALSO COVERS ARTHROSCOPIC INCISION AND DRAINAGE/DEBRIDEMEN T) 04/10/2015 1:47 PM EDT Tear of medial cartilage or meniscus of knee, current Special Needs FAX CPT 28655 POCT ISTAT CHEM8 VENOUS Routine 04/10/2015 12:57 PM EDT DX BONE DENSITY AXIAL SKELETON Routine 02/06/2014 2:29 PM EDT Osteoporosis, unspecified Results * SEP URINALYSIS POC (11/12/2024 10:24 AM EDT) Only the most recent of11 resultswithin the time period is included. UA Color POC Yellow Color 11/12/2024 10:26 AM EDT [facility] UA Appear POC Clear Clear 11/12/2024 10:26 AM EDT [facility] UA Gluc POC Negative Negative mg/dL 11/12/2024 10:26 AM EDT [facility] UA Bili POC Negative Negative 11/12/2024 10:26 AM EDT [facility] UA Ketones POC Negative Negative mg/dL 11/12/2024 10:26 AM EDT [facility]Y [facility] UA SG POC >=1.030 1.001 - 1.035 no units 11/12/2024 10:26 AM EDT [facility] UROLOGY [facility] UA Blood POC Negative Negative 11/12/2024 10:26 AM EDT [facility] UA pH POC 5.5 5.0 - 8.0 pH 11/12/2024 10:26 AM EDT [facility] Protein POC Negative Negative mg/dL 11/12/2024 10:26 AM EDT [facility] Urobilinogen POC 1.0 0.2, 1.0 11/12/2024 10:26 AM EDT [facility] UA Nitrite POC Negative Negative 11/12/2024 10:26 AM EDT [facility] UA Leuk Est POC Negative Negative 10:26 AM EDT [facility] Urine STRUCTURE OF URINARY TRACT PROPER / Unknown 11/12/2024 10:24 AM EDT 11/12/2024 10:26 AM EDT Brandon Acevedo MD POINT OF CARE TEST ORDERA BLES Final Result [facility] [address] [place] [address] * (ABNORMAL) PROSTATE SPECIFIC ANTIGEN (TUMOR MARKER) (11/05/2024 11:48 AM EDT) Only the most recent of9 resultswithin the time period is included. Total Psa 5.34(H) <=4.00 ng/mL 11/05/2024 3:34 PM EDT [facility] [employer] Blood VENOUS BLOOD / Unknown Venipuncture / Unknown 11/05/2024 11:48 AM EDT 11/05/2024 11:48 AM EDT Narrative [facility]REF[facility] [employer] - 11/05/2024 3:34 PM EDT The Rigoberto Elecsys total PSA electrochemiluminescence (ECLIA) immunoassay is used. Results obtained with different test methods or kits cannot be used interchangeably. The Rigoberto method is approved for use as an aid in the detection of prostate cancer when used in conjunction with a digital rectal exam in individuals with a prostate aged 50 years or older. The assay is also indicated for the serial measurement of PSA to aid in the prognosis and management of prostate cancer patients. Elevated tPSA concentrations can only suggest the presence of prostate cancer until biopsy is performed. Levels may also be elevated in benign prostatic hyperplasia or inflammatory conditions of the prostate. us Brandon Acevedo MD CHEMISTRY ORDERABLES Nely sarah Result [facility] [address] [place] [address] , [address] [place] [id number] * CT ABDOMEN PELVIS HEMATURIA/RENAL MASS PROTOCOL (05/08/2024 9:04 AM EDT) Anatomical Region Laterality Modality Abdomen, Pelvis, Hip, Chest Comp uted Tomography 05/08/2024 9:04 AM EDT Impressions 05/08/2024 12:22 PM EDT No stone or mass identified to explain hematuria. Left renal cyst. No solid mass. Enlarged the prostate with the elevated floor of the bladder. Other findings as above. - Note: Radiology results need to be interpreted within a comprehensive clinical context. If you have questions about the radiology report, please contact the office of the ordering clinician. Narrative 05/08/2024 12:[address] ABDOMEN PELVIS WITH AND WITHOUT CONTRAST HEMATURIA/RENAL MASS PROTOCOL, 05/08/2024 9:04 AM CLINICAL HISTORY: Hematuria. R31.0-Gross [id number]. COMPARISON: None. PROCEDURE COMMENTS: Multi-detector CT scanning of the abdomen with multiplanar reformatting following the hematuria protocol. Imaging included non-contrast and contrast enhanced phases. Excretory phase imaging included. Isovue 370 IV contrast given as recorded in EPIC. Dose 1 : CT DLP Total : 742.8 mGycm DLP Spiral Max : 247.6 mGycm Maximum CTDI Vol : 6.4 mGy FINDINGS: LOWER THORAX: Lung bases unremarkable. ABDOMEN AND PELVIS: Non-contrast phase: No renal or ureteral stone. Corticomedullary phase: A cyst in the left kidney measuring 3.1 cm. No solid lesion. Delayed phase: No concerning filling defect or mass in the collecting systems, ureters. Prostate is markedly enlarged causing raising of the floor of the bladder more on the left side with the lifting of the distal ureters. No calcification in the bladder. No discrete bladder wall mass.. Remaining viscera: Probable small cyst in the liver. Granulomas in the spleen. Bilateral adrenal glands, pancreas are unremarkable. No radiodense gallstone. Atherosclerotic aorta without aneurysm. No dominant retroperitoneal adenopathy. 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 No bowel obstruction. No ascites. No dominant pelvic adenopathy. Linear increased density within the left rectus abdominous muscle of the pelvis of unclear etiology. It may be a foreign body. Procedure Note Yadi Franklin MD - 05/08/2024 CT ABDOMEN PELVIS WITH AND WITHOUT CONTRAST HEMATURIA/RENAL MASS PROTOCOL, 05/08/2024 9:04 AM CLINICAL HISTORY: Hematuria. R31.0-Gross [id number]. COMPARISON: None. PROCEDURE COMMENTS: Multi-detector CT scanning of the abdomen withmultiplanar reformatting following the hematuria protocol. Imaging includednon-contrast and contrast enhanced phases. Excretory phase imaging included. Isovue 370IV contrast given as recorded in EPIC. Dose 1 : CT DLP Total : 742.8 mGycm DLP Spiral Max : 247.6 mGycm Maximum CTDI Vol : 6.4 mGy FINDINGS: LOWER THORAX: Lung bases unremarkable. ABDOMEN AND PELVIS: Non-contrast phase: No renal or ureteral stone. Corticomedullary phase: A cyst in the left kidney measuring 3.1 cm. Nosolid lesion. Delayed phase: No concerning filling defect or mass in the collectingsystems, ureters. Prostate is markedly enlarged causing raising of the floor ofthe bladder more on the left side with the lifting of the distal ureters. No calcification in the bladder. No discrete bladder wall mass.. Remaining viscera: Probable small cyst in the liver. Granulomas in thespleen. Bilateral adrenal glands, pancreas are unremarkable. No radiodensegallstone. Atherosclerotic aorta without aneurysm. No dominant retroperitonealadenopathy. There appears to be small left inferior vena cava extending from the leftcommon iliac vein to the left renal vein in addition to normal size right sideIVC. No bowel obstruction. No ascites. No dominant pelvic adenopathy. Linear increased density within the left rectus abdominous muscle of thepelvis of unclear etiology. It may be a foreign body. IMPRESSION: No stone or mass identified to explain hematuria. Left renal cyst. No solid mass. Enlarged the prostate with the elevated floor of the bladder. Other findings as above. - Note: Radiology results need to be interpreted within a comprehensiveclinical context. If you have questions about the radiology report, please contactthe office of the ordering clinician. us Pk A Warning PA IMG CT ORDERABLES Final Resu lt * CREATININE ISTAT (05/08/2024 8:51 AM EDT) Pathologist [facility] Creatinine-iST AT 1.2 0.6 - 1.3 mg/dL 05/09/2024 9:53 AM EDT [facility] Blood BLOOD SPECIMEN / Unknown 05/08/2024 8:51 AM EDT 05/09/2024 9:53 AM EDT us Pk A Warning PA POINT OF CARE TEST ORDERABLE S Final Result [facility] [address] [place] [address] * SCANNED LABS (05/03/2024 1:15 PM EDT) 05/03/2024 1:15 PM EDT us Unknown Provider HEMATOLOGY ORDERABLES Final Res ult * URINALYSIS (04/18/2024 12:51 PM EDT) Only the most recent of2 resultswithin the time period is included. UA Color Yellow 04/18/2024 8:01 PM EDT [facility] UA Appear Clear Clear 04/18/2024 8:01 PM EDT [facility] UA Glucose Negative Negative mg/dL 04/18/2024 8:01 PM EDT [facility] UA Ketones Negative Negative mg/dL 04/18/2024 8:01 PM EDT [facility] UA Blood Negative Negative 04/18/2024 8:01 PM EDT [facility] UA pH 5.5 5.0 - 8.0 pH 04/18/2024 8:01 PM EDT [facility] UA Protein Negative Negative mg/dL 04/18/2024 8:01 PM EDT [facility] UA Urobilinogen Normal <=1 mg/dL 8:01 PM EDT [facility] UA Bili Negative Negative 04/18/2024 8:01 PM EDT [facility] UA Nitrite Negative Negative 04/18/2024 8:01 PM EDT [facility], [facility] UA Leuk Est Negative Negative 04/18/2024 8:01 PM EDT [facility] UA Spec Grav 1.025 1.001 - 1.035 no units 04/18/2024 8:01 PM EDT [facility], [facility] Comment:Reference range dorian d for random specimens only. Urine URINE SPECIMEN COLLECTION, CLEAN CATCH / Unknown 04/18/2024 12:51 PM EDT 04/18/2024 12:51 PM EDT us Pk Chanel Warning PA URINE ORDERABLES Final Resul t [facility], [address] , [place] [address] * POCT BLADDER SCAN (11/09/2023 1:32 PM EDT) Only the most recent of2 resultswithin the time period is included. Urine Volume (Preservative) 0 ml SEP OFFICE 11/09/2023 1:32 PM EDT Brandon Acevedo MD POINT OF CARE IMAGING Fin al Result SEP OFFICE * URINE CULTURE (NO STAIN) (11/30/2022 3:19 PM EDT) Culture Multiple bacterial species isolated from urine consistent with urogenital commensal organisms. 12/02/2022 6:16 AM EDT [facility], [facility] Urine URINE SPECIMEN COLLECTION, CLEAN CATCH / Unknown 11/30/2022 3:19 PM EDT 11/30/2022 3:19 PM EDT us Michelle Morales PA-C MICROBIOLOGY - GENERAL ORDE ANNABELLA Final Result [facility], [address], [place] [address] * PATHOLOGY TISSUE REQUEST (10/12/2021 4:15 PM EST) CASE REPORT Surgical Pathology Case: [id number] Authorizing Provider: Brandon Acevedo MD Collected: 10/12/[id number] Ordering Location: [facility] Received: 10/12/20211614 Pathologist: Luz Matthews MD Specimens: A) - Prostate, RB B) - Prostate, RM C) - Prostate, RA D) - Prostate, LB E) - Prostate, LM F) - Prostate, LA 10/15/2021 12:12 PM EST [facility] FINAL DIAGNOSIS A) Prostate, right base, needle biopsy: - Atypical small acinar proliferation (LOAN). B) Prostate, right mid, needle biopsy: - Benign prostatic tissue. - Negative for cytologic atypia or malignancy. C) Prostate, right apex, needle biopsy: - Benign prostatic tissue. - Negative for cytologic atypia or malignancy. D) Prostate, left base, needle biopsy: - Prostatic adenocarcinoma, Dariela score 3+3=6, grade group 1. - Two of three cores involved by tumor (3 mm of 20 mm, 15%). E) Prostate, left mid, needle biopsy: - Prostatic adenocarcinoma, [place] score 3+3=6, grade group 1. - Two of two cores involved by tumor (4 mm of 22 mm, 18%). F) Prostate, left apex, needle biopsy: - Benign prostatic tissue. - Negative for cytologic atypia or malignancy. This case was reviewed by additional departmental pathologist with diagnostic agreement. /DA The diagnosis was texted to Dr. Brandon Acevedo via [employer] by Dr. Matthews on 10/15/2021. 10/15/2021 12:12 PM EST [facility] at 1212 EST COMMENT CANCER CASE SUMMARY: - Highest Dariela score: 6 (3+3); Grade Group 1 - Number cores involved: 4 - Number cores submitted: 16 - Longest tumor focus in single core: 3 mm - Highest tumor %: 18% - Bilateral: No - Perineural invasion: No - Extraprostatic extension: No 10/15/2021 12:12 PM [facility] GROSS DESCRIPTION A. Received in formalin in a container, labeled with the patient's name, hospital number, and prostate, RB , are two jackson-pink, soft tissue cores, 0.6-0.8 cm in length x 0.1 cm in diameter. Entirely submitted in one cassette. 10/13/2021 9:02 AM B. Received in formalin in a container, labeled with the patient's name, hospital number, and prostate, RM , are four jackson-pink, soft tissue cores, 2.2, 0.3, 0.3 and 0.6 cm in length x 0.1 cm in diameter. Entirely submitted in one cassette. 10/13/2021 9:02 AM C. Received in formalin in a container, labeled with the patient's name, hospital number, and prostate, RA , are three jackson-pink, soft tissue cores, 0.4, 0.5 and 1.2 cm in length x 0.1 cm in diameter. Entirely submitted in one cassette. 10/13/2021 9:02 AM D. Received in formalin in a container, labeled with the patient's name, hospital number, and prostate, LB , are three jackson-pink, soft tissue cores, 0.5, 1.0 and 1.2 cm in length x 0.1 cm in diameter. Entirely submitted in one cassette. 10/13/2021 9:02 AM E. Received in formalin in a container, labeled with the patient's name, hospital number, and prostate, LM , are two jackson-pink, soft tissue cores, 1.4-1.5 cm in length x 0.1 cm in diameter. Entirely submitted in one cassette. 10/13/2021 9:02 AM F. Received in formalin in a container, labeled with the patient's name, hospital number, and prostate, LA , are two jackson-pink, soft tissue cores, 0.7-1.2 cm in length x 0.1 cm in diameter. Entirely submitted in one cassette. 10/13/2021 9:02 AM 10/15/2021 12:12 PM EST [facility] MICROSCOPIC DESCRIPTION Microscopic examination is performed and the findings corroborate the diagnosis. Immunohistochemical stains were performed to further evaluate the cellular components. They are necessary for pathological evaluation to establish a more specific diagnosis. All controls are stained appropriately. ASR: Some of the immunohistochemical stains were developed and their performance characteristics determined by [facility]. They have not been cleared or approved by the US Food and Drug Administration. The FDA does not require these tests to go through pre-market FDA review. These tests are used for clinical purposes. They should not be regarded as investigational or for research. This laboratory is certified under the Clinical Laboratory Improvement Amendments (CLIA) as qualified to perform high complexity clinical laboratory testing. P63/AMCAR double stains were performed on block A, D, E and F. Tumor glands in E and F show positive AMCAR luminal stains and negative p63 basal staining. No tumor glands are noted in block F. A small focus of atypical glands suspicious for adenocarcinoma is noted in block A. 10/15/2021 12:12 PM EST [facility] BEST TISSUE BLOCK FOR ANCILLARY STUDIES E1 10/15/2021 12:12 PM EST [facility] EMBEDDED IMAGES 10/15/2021 12:12 PM EST [facility] Tissue SPECIMEN FROM PROSTATE / Unknown 10/12/2021 4:15 PM EST 10/12/2021 4:15 PM EST Tissue specimen (specimen) PROSTATE / Unknown 10/12/2021 4:15 PM EST 10/12/2021 4:15 PM EST Tissue specimen (specimen) PROSTATE / Unknown 10/12/2021 4:15 PM EST 10/12/2021 4:15 PM EST Tissue specimen (specimen) PROSTATE / Unknown 10/12/2021 4:15 PM EST 10/12/2021 4:15 PM EST Tissue specimen (specimen) PROSTATE / Unknown 10/12/2021 4:15 PM EST 10/12/2021 4:15 PM EST Tissue specimen (specimen) PROSTATE / Unknown 10/12/2021 4:15 PM EST 10/12/2021 4:15 PM EST us Brandon Acevedo MD PATHOLOGY ORDERABLES Nely smith Result [facility] [address] [place] [id number] * (ABNORMAL) PROSTATE SPECIFIC ANTIGEN (SCREENING) (06/08/2021 10:15 AM EDT) Total Psa 4.92(H) <=4.00 ng/mL 06/08/2021 1:59 PM EDT [facility] VENOUS BLOOD / Unknown Venipuncture / Unknown 06/08/2021 10:15 AM EDT 06/08/2021 10:15 AM EDT Narrative [facility] - 06/08/2021 1:59 PM EDT Prostate cancer screening with the PSA test is controversial and varying recommendation exists among several Urologic, Governmental, and Oncologic organizations. The decision to test the prostate for cancer should be based on a discussion between the patient and the physician. Given that the PSA value varies with age, prostate size, prostate activity, and between blood tests, consideration should be given to prostatic hypertrophy, prostate inflammation, perineal activity (including bicycle riding and digital rectal exam), and prior PSA levels. Lastly, higher risk prostate cancers can occur in certain ethnic groups and low PSA states, consideration of history and physical findings should guide screening decision making. Ingestion of db doses of biotin (>5 mg/day) taken within 8 hours of drawing blood sample can interfere with this immunoassay test. us Brandon Acevedo MD CHEMISTRY ORDERABLES Nely l Result [facility] [address] [place] [address] , [place] [address] * SCANNED EKG (04/17/2015 2:49 PM EDT) Anatomical Region Laterality Modality Other 04/17/2015 2:49 PM EDT us Unknown Unknown IMG ECG ORDERABLES Final Result * SCANNED RHYTHM STRIPS (04/17/2015 2:49 PM EDT) Anatomical Region Laterality Modality Other 04/17/2015 2:49 PM EDT us Unknown Unknown IMG ECG ORDERABLES Final Result * POCT ISTAT CHEM8 VENOUS (04/10/2015 12:57 PM EDT) Sodium 140 135 - 143 mmol/L [facility] Potassium 4.0 3.5 - 5.0 mmol/L [facility] Calcium Ion 1.19 1.12 - 1.32 mmol/L [facility] Chloride iStat 102 98 - 109 mmol/L [facility] tCO2 Abundio 27 24 - 29 mmol/L [facility] Anion Gap 16 10 - 20 [facility] Glucose 90 70 - 105 mg/dL [facility] BUN 20 8 - 26 mg/dL [facility] Creatinine 1.1 0.6 - 1.3 mg/dL [facility] Blood specimen (specimen) 04/10/2015 12:57 PM EDT 04/10/2015 12:57 PM EDT Petey Jimenez MD POINT OF CARE TEST ORDERABLES F inal Result [facility] [address] [place] [address] * DX BONE DENSITY AXIAL SKELETON (02/06/2014 2:29 PM EDT) Anatomical Region Laterality Modality Dexa Scan Narrative 02/18/2014 3:58 PM EDT A dexa scan was performed. This exam was read and signed by a Radiologist. The signed final Dexa report should have already been faxed to the referring Doctor. Procedure Note Petey Grove MD - 02/18/2014 A dexa scan was performed. This exam was read and signed by a Radiologist.The signed final Dexa report should have already been faxed to thereferring Doctor. us Barney Hurtado MD IMG DEXA ORDERABLES Final Result Visit Diagnoses Diagnosis Start Date Tear of medial cartilage or meniscus of knee, current 04/10/2015 Prostate cancer screening Special screening for malignant neoplasm of prostate 06/08/2021 Benign prostatic hyperplasia with urinary frequency 06/08/2021 Prostate cancer screening Special screening for malignant neoplasm of prostate 06/08/2021 Elevated PSA Elevated prostate specific antigen (PSA) 06/08/2021 Elevated PSA Elevated prostate specific antigen (PSA) 08/27/2021 Elevated PSA Elevated prostate specific antigen (PSA) 08/27/2021 Elevated PSA Elevated prostate specific antigen (PSA) 10/12/2021 Cancer of prostate w/low recurrence risk (T1-2a, Dariela<7 & PSA<10) (HCC) Malignant neoplasm of prostate 11/26/2021 Cancer of prostate w/low recurrence risk (T1-2a, Dariela<7 & PSA<10) (HCC) Malignant neoplasm of prostate 03/10/2022 Benign prostatic hyperplasia with urinary frequency 04/04/2022 Benign prostatic hyperplasia with urinary frequency 05/02/2022 Cancer of prostate w/low recurrence risk (T1-2a, Dariela<7 & PSA<10) (HCC) Malignant neoplasm of prostate 05/19/2022 Cancer of prostate w/low recurrence risk (T1-2a, Arkport<7 & PSA<10) (HCC) Malignant neoplasm of prostate 05/26/2022 Cancer of prostate w/low recurrence risk (T1-2a, Dariela<7 & PSA<10) (HCC) Malignant neoplasm of prostate 05/27/2022 Benign prostatic hyperplasia with urinary frequency 05/31/2022 Cancer of prostate w/low recurrence risk (T1-2a, Arkport<7 & PSA<10) (HCC) Malignant neoplasm of prostate 06/02/2022 Cancer of prostate w/low recurrence risk (T1-2a, Arkport<7 & PSA<10) (HCC) Malignant neoplasm of prostate 11/24/2022 Cancer of prostate w/low recurrence risk (T1-2a, Dariela<7 & PSA<10) (HCC) Malignant neoplasm of prostate 11/25/2022 Abnormal urine Other nonspecific finding on examination of urine 11/30/2022 Benign prostatic hyperplasia with urinary frequency 11/30/2022 Cancer of prostate w/low recurrence risk (T1-2a, Dariela<7 & PSA<10) (HCC) Malignant neoplasm of prostate 11/30/2022 Lower urinary tract symptoms (LUTS) Other symptoms involving urinary system 11/30/2022 Cancer of prostate w/low recurrence risk (T1-2a, Dariela<7 & PSA<10) (HCC) Malignant neoplasm of prostate 02/16/2023 Cancer of prostate w/low recurrence risk (T1-2a, Arkport<7 & PSA<10) (HCC) Malignant neoplasm of prostate 02/20/2023 Cancer of prostate w/low recurrence risk (T1-2a, Dariela<7 & PSA<10) (HCC) Malignant neoplasm of prostate 05/22/2023 Cancer of prostate w/low recurrence risk (T1-2a, Dariela<7 & PSA<10) (HCC) Malignant neoplasm of prostate 05/23/2023 Lower urinary tract symptoms (LUTS) Other symptoms involving urinary system 05/23/2023 Cancer of prostate w/low recurrence risk (T1-2a, Dariela<7 & PSA<10) (HCC) Malignant neoplasm of prostate 06/12/2023 Cancer of prostate w/low recurrence risk (T1-2a, Dariela<7 & PSA<10) (HCC) Malignant neoplasm of prostate 08/08/2023 Elevated PSA Elevated prostate specific antigen (PSA) 10/02/2023 Cancer of prostate w/low recurrence risk (T1-2a, Arkport<7 & PSA<10) (HCC) Malignant neoplasm of prostate 10/02/2023 Cancer of prostate w/low recurrence risk (T1-2a, Ark[place]<7 & PSA<10) (HCC) Malignant neoplasm of prostate 10/11/2023 Elevated PSA Elevated prostate specific antigen (PSA) 11/03/2023 Cancer of prostate w/low recurrence risk (T1-2a, Arkport<7 & PSA<10) (HCC) Malignant neoplasm of prostate 11/03/2023 Cancer of prostate w/low recurrence risk (T1-2a, Ark[place]<7 & PSA<10) (HCC) Malignant neoplasm of prostate 11/09/2023 Lower urinary tract symptoms (LUTS) Other symptoms involving urinary system 11/09/2023 Feeling of incomplete bladder emptying Incomplete bladder emptying 11/09/2023 Cancer of prostate w/low recurrence risk (T1-2a, Arkport<7 & PSA<10) (HCC) Malignant neoplasm of prostate 12/11/2023 Cancer of prostate w/low recurrence risk (T1-2a, Dariela<7 & PSA<10) (HCC) Malignant neoplasm of prostate 02/12/2024 Cancer of prostate w/low recurrence risk (T1-2a, Arkport<7 & PSA<10) (HCC) Malignant neoplasm of prostate 04/11/2024 Cancer of prostate w/low recurrence risk (T1-2a, Dariela<7 & PSA<10) (HCC) Malignant neoplasm of prostate 04/12/2024 Elevated PSA Elevated prostate specific antigen (PSA) 04/12/2024 Cancer of prostate w/low recurrence risk (T1-2a, Dariela<7 & PSA<10) (HCC) Malignant neoplasm of prostate 04/12/2024 Elevated PSA Elevated prostate specific antigen (PSA) 04/12/2024 Elevated PSA Elevated prostate specific antigen (PSA) 04/16/2024 Abnormal urine Other nonspecific finding on examination of urine 04/18/2024 Gross hematuria 04/18/2024 Lower urinary tract symptoms (LUTS) Other symptoms involving urinary system 04/18/2024 Gross hematuria 05/08/2024 Gross hematuria 05/10/2024 Cancer of prostate w/low recurrence risk (T1-2a, Arkport<7 & PSA<10) (HCC) Malignant neoplasm of prostate 05/10/2024 Cancer of prostate w/low recurrence risk (T1-2a, Ark[place]<7 & PSA<10) (HCC) Malignant neoplasm of prostate 06/10/2024 Cancer of prostate w/low recurrence risk (T1-2a, Dariela<7 & PSA<10) (HCC) Malignant neoplasm of prostate 11/05/2024 Cancer of prostate w/low recurrence risk (T1-2a, Arkport<7 & PSA<10) (HCC) Malignant neoplasm of prostate 11/12/2024 Lower urinary tract symptoms (LUTS) Other symptoms involving urinary system 11/12/2024 Goals Goal Patient Goal Type Associated Problems Recent Progress Patient-Stated? Author Blood Pressure < 140/90 Blood Pressure 126/62(2024 10:31 AM EDT) Tigist Farfan MA Maintain a healthy diet, exercise regularly and maintain an ideal body weight General Tigist Farfan MA Care Teams Housetrailer Servicer Relationship Specialty Start Date End Date Lei Donaldson MD [address] [place] [phone] PCP - General Family Medicine 02/06/14
--- OUTSIDE RECORDS SUMMARY | 2025-01-20 10:40 | XMS_ITS | Clinical Summary ---
Author Organization [facility] Address [address] [place] [id number] Care Team Providers Care Agency Service Representative Name Role Phone Mendoza Benitez MD, Lei Primary Care Provider + Source Comments This information has been disclosed to you from confidential records protectedfrom disclosure by state law. You shall make no further disclosure of thisinformation without the specific, written, and informed release of theindividual to whom it pertains, or as otherwise permitted by law. A generalauthorization for the release of medical or other information is not sufficientfor the purposes of therelease of HIV test results or diagnoses. [id number] Allergies Active Allergy Reactions Criticality Noted Date Comments Penicillins 04/19/2016 Medications aspirin 81 MG chewable tablet Chew 81 mg by mouth daily. Active simvastatin (ZOCOR) 20 MG tablet Take 20 mg by mouth at bedtime. Active cetirizine (ZYRTEC) 10 MG chewable tablet Chew 10 mg by mouth daily. Active carvedilol (COREG) 6.25 MG tablet Take 6.25 mg by mouth 2 times a day with meals. Active Active Problems Problem Noted Date Diagnosed Date Stroke 04/20/2016 Family History Medical History Relation Comments Coronary artery disease Father Relation Status Comments Father Social History Tobacco Use Types Packs/Day Years Used Date Smoking Tobacco: Never Alcohol Use Standard Drinks/Week Comments Yes 0 (1 standard drink = 0.6 oz pur e alcohol) Sex and Gender Information Value Date Recorded Sex Assigned at Not on file Legal Sex Male 8:23 AM EDT Gender Identity Not on file Sexual Orientation Not on file Last Filed Vital Signs Vital Sign Reading Time Taken Comments Blood Pressure 149/90 07/01/2016 1:39 PM EST Pulse 68 07/01/2016 1:39 PM EST Temperature 36.6 C (97.9 F) 04/20/2016 9:11 AM EDT Respiratory Rate 14 04/20/2016 9:11 AM EDT Oxygen Saturation 100% 04/20/2016 9:11 AM EDT Inhaled Oxygen Concentration 100% 04/20/2016 9 :11 AM EDT Weight 82.1 kg (181 lb) 07/01/2016 1:39 PM EST Height 185.4 cm (6' 1 ) 07/01/2016 1:39 PM EST Body Mass Index 23.88 07/01/2016 1:39 PM EST Plan of Treatment Not on file Insurance [employer] MDCD [facility] Advance Directives For more information, please contact: [phone] Documents on File Type Date Recorded Patient 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
--- OUTSIDE RECORDS SUMMARY | 2025-01-20 10:40 | XMS_ITS | Clinical Summary ---
Author Organization Healthcare Address [address] [place] [address] Care Team Providers Care It Engineer Name Role Phone Lei Donaldson MD Primary Care Provider [phone] Family History Medical History Relation Name Comments Coronary artery disease Father Stroke Mother Relation Name Status Comments Father Mother Social History Tobacco Use Types Packs/Day Years Used Date Smoking Tobacco: Never Alcohol Use Standard Drinks/Week Comments No 0 (1 standard drink = 0.6 oz pur e alcohol) Sex and Gender Information Value Date Recorded Sex Assigned at Not on file Legal Sex Male 8:01 PM EDT Gender Identity Not on file Sexual Orientation Not on file Last Filed Vital Signs Vital Sign Reading Time Taken Comments Blood Pressure 124/88 2017 2:18 PM EST Pulse 90 2017 2:18 PM EST Temperature - - Respiratory Rate - - Oxygen Saturation - - Inhaled Oxygen Concentration - - Weight 78.7 kg (173 lb 8 oz) 2017 2:18 PM EST Height 185.4 cm (6' 1 ) 2017 2:18 PM EST Body Mass Index 22.89 2017 2:18 PM EST Plan of Treatment Health Maintenance Due Date Last Done Comments [facility]-Depression Screening 1955 [facility]-/Child/Adol SDOH Screenings 1955 [facility]- SDOH Screenings 1971 [facility]-Adult SDOH Screenings 1971 [facility]-DTaP,Tdap,and Td Vaccine s (1 - Tdap) 1972 CT Colonography 1998 Colonoscopy 1998 FIT-DNA 1998 FIT 1998 FOBT 1998 Sigmoidoscopy 1998 [facility]-Colorectal Cancer Screening 1998 [facility]-Pneumococcal Vaccine: 50 + Years (1 of 1 - PCV) 2003 [facility]-Zoster Vaccines (1 of 2) 2003 [id number] Vaccine (1 - 20 24-25 season) 2024 [facility]-Influenza Vaccine (Seas[place] n Ended) 2025 [facility]-RSV Vaccine: 60+ Years o r (1 - 1-dose 75+ series) 2028 HPV Vaccines Aged Out No longer eligi ble based on patient's age to complete this topic [facility]-HIB Vaccines Aged Out No longer e ligible based on patient's age to complete this topic [facility]-Hepatitis A Vaccines Aged Out No longer eligible based on patient's age to complete this topic [facility]-IPV Vaccines Aged Out No longer e ligible based on patient's age to complete this topic [facility]-Rotavirus Vaccines Aged Out No lo nger eligible based on patient's age to complete this topic Insurance MEDICARE [employer] Care Teams It Engineer Relationship Specialty Start Date End Date Lei Donaldson MD [address] [place] [phone] [facility] - General 12/25/20
[2025-01-20 11:55] LABS: Basophils # 0.1 K/mm3 (0-0.2); Basophils % 1.1 % (0.1-2.0); Eosinophils # 0.1 Kmm3 (0.0-0.4); Eosinophils % 1.1 % (0.1-12.0); Hematocrit 45.9 % (42.0-52.0); Hemoglobin 15.6 g/dL (14.1-18.0); Immature Granulocytes # 0.01 10^3uL; Immature Granulocytes % 0.2 %; Lymphocytes # 1.3 K/mm3 (0.7-4.5); Lymphocytes % 22.6 % (10-50); Mean Corpuscular Hemoglobin 30.4 pg (27.0-31.2); Mean Corpuscular Volume 89.3 fl (80-94); Monocytes # 0.6 K/mm3 (0.1-1.0); Monocytes % 10.9 % (1.7-9.3); Neutrophils # 3.6 K/mm3 (1.8-7.8); Neutrophils % 64.1 % (37.0-80.0); Nucleated Red Blood Cells # 0 10^3/uL; Nucleated Red Blood Cells % 0 %; Platelet Count 266 K/mm3 (142-424); Red Blood Count 5.14 M/mm3 (4.60-6.20); Red Cell Distribution Width 14.8 % (11.5-17.5); Red Cell Distribution Width-SD 48.3 fL; White Blood Count 5.6 K/mm3 (4.8-10.8)
[2025-01-20 12:12] LABS: Alanine Aminotransferase 18 U/L (12-78); Albumin Level 3.9 g/dl (3.5-5.0); Alkaline Phosphatase 54 U/L (38-126); Anion Gap 8.6 mEq/L (5-15); Aspartate Amino Transferase 31 U/L (17-59); Bilirubin,Direct 0.1 mg/dl (0.0-0.4); Bilirubin,Indirect 0.8 mg/dL (0.0-0.9); Bilirubin,Total 0.9 mg/dl (0.2-1.3); Bilirubin,Unconjugated 0.8 mg/dL (0.0-1.1); Blood Urea Nitrogen 28 mg/dl (9-20); Calcium 8.8 mg/dl (8.4-10.2); Carbon Dioxide 28 mmol/L (22.0-30.0); Chloride 107 mmol/L (98-107); Chol/HDL Ratio 2.8 (1-3.5); Cholesterol 200 mg/dl (140-200); Estimated Glomerular Filt Rate 50 ml/min (>60); GFR (African American) 60 ML/MIN (>60); Glucose 76 mg/dl (74-100); HDL Cholesterol 72 mg/dl (40-60); Magnesium 1.8 mg/dl (1.6-2.3); Potassium 4.6 mmoL/L (3.5-5.1); Sodium 139 mmol/L (136-145); Total Protein,Serum 6.9 g/dl (6.3-8.2); Triglycerides 212 mg/dl (30-150); VLDL Cholesterol 42 mg/dL (0-40)
[2025-01-20 12:23] LABS: Direct LDL Cholesterol 71.56 mg/dL (100-129)
[2025-01-20 12:28] LABS: Free T4 (Free Thyroxine) 1.31 ng/dl (0.78-2.19)
[2025-01-20 12:42] LABS: Thyroid Stimulating Hormone 1.11 uIU/mL (0.465-4.68)
== END 2025-01-20 23:59 | disposition home or self-care (01) ==
LOC: LAB 10:38
PROVIDERS: PCP Nurse Practitioner; Visit Provider Physician Assistant
DX: E78.2 Mixed hyperlipidemia (principal); I25.10 Atherosclerotic heart disease of native coronary artery without angina pectoris; I11.0 Hypertensive heart disease with heart failure; I50.32 Chronic diastolic (congestive) heart failure; I48.0 Paroxysmal atrial fibrillation; I42.0 Dilated cardiomyopathy; Z95.0 Presence of cardiac pacemaker; Z51.81 Encounter for therapeutic drug level monitoring; Z79.01 Long term (current) use of anticoagulants; N52.2 Drug-induced erectile dysfunction; C61 Malignant neoplasm of prostate
CPT/HCPCS: 36415; 80048; 80061; 80076; 83735; 84439; 84443; 85025

== ENCOUNTER 2025-02-03 07:44 | Outpatient (CLI) | payer MEDICARE, SELFPAY ==
--- OUTSIDE RECORDS SUMMARY | 2024-05-29 07:00 | XMS_ITS | Continuity of Care Document ---
Author Organization [facility] Address [address] [place] [address] Phone Care Team Providers [facility] [employer] Leader Name Role Phone Petey Jimenez MD Unavailable Unavailable Allergies, Adverse Reactions, Alerts Substance Reaction Status Criticality Penicillins DifficultyBreathing Active No Infor mation Medications Medication Instructions Dosage Effective Dates (start - stop) Status Comments metoprolol succinate ER 25 mg tablet,extended release 24 hr - Active warfarin 5 mg tablet - Activ e warfarin 6 mg tablet - Activ e tamsulosin 0.4 mg capsule - Active sildenafil 25 mg tablet - Active Allergy Relief (cetirizine) 10 mg tablet - No Longer Active metoprolol succinate ER 50 mg tablet,extended release 24 hr - No Longer Active triamcinolone acetonide 0.1 % topical ointment - No Longer Active Xiidra 5 % eye drops in a dropperette - No Longer Active simvastatin 40 mg tablet - No Longer Active simvastatin 20 mg tablet - No Longer Active ofloxacin 0.3 % eye drops - No Longer Active clindamycin HCl 300 mg capsule TAKE 1 CAPSULE BY MOUTH 3 TIMES A DAY FOR 10 DAYS No Longer Active Procedures Procedure Date Office/outpatient visit,giuseppe, mod 2023 Drain Or inject major jointor bursa X-ray exam lower spine 2-3 views 2023 X-ray exam of knee, 3 views Triamcinolone acetonide inj Advance Directives Directive Yes / No Effective Date File Name No Information Encounters Encounter Description Practice Location Reason(s) For Visit Diagnoses Date Provider Providers Copied on Encounter Office/outpat ient visit,new, mod [facility], [facility] [place][note 2] [place], [place], [facility] [place] [facility] [place], tel:[phone] [address] [place] knee (chief complaint) new patient (chief complaint) Unilateral primary osteoarthrit is, right knee 4 Tony Angelo. [address] [place] [address], Critical access hospital, . tel:[phone] [address], [address] . tel:[phone] erring Provider: Petey Hinton, [address] [place], [place] [address]eo [place], [place], Critical access hospital. tel:[phone] [facility], [address] [place] [address], [facility] [place] [facility] [place], tel:[phone] [place] No Information 4 Tony Angelo. [address] [place] [address], [address], [place]. tel:[phone] Family History Family Member Type Diagnosis Age At Onset No Information Payers Payer name Insurance type Covered constitution party ID Authoriza tion(s) Medicare [place] MB [id number] [employer] Senior Supplemental - AESSI CI [id number] Social History Type Description Quantity Date Captured Comments Alcohol Use Details No Caffeine Use Details Unknown Tobacco Use Status No Information Smoking Status Never smoker Non-Smoking Tobacco Use Details : No Details Available : No Details Available Sex Male Vital Signs Date / Time: Height Weight BMI Pulse Rate Blood Pressure Temperature Respiratory Rate Body Surface Area Head Circumference Head Circ. Percentile Wt./Demetrius. Percentile BMI percentile Pulse Ox Inhaled Ox 10:04 AM 72.00 in 73.935 kg (163.00 lbs) 22.1 0 kg/m zahraer (2) Chief Complaint And Reason For Visit From encounter dated 05/29/2024 11:00'. knee (chief complaint) new patient (chief complaint). 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
--- OUTSIDE RECORDS SUMMARY | 2025-02-03 07:47 | XMS_ITS | Continuity of Care Document ---
Author Organization [facility] T Address [address] [place] [address] Phone Care Team Providers Care University Archivist Name Role Phone Mendoza Benitez MD, Lei Primary Care Provider + Encounters Date Type Department Care Team Description 11/12/2024 10:40 AM EDT Office Visit [facility] Urology [address] [phone] Brandon Acevedo MD Cancer of prostate w/low recurrence risk (T1-2a, Cerro<7 & PSA<10) (HCC) (Primary Dx); Lower urinary tract symptoms (LUTS) 11/05/2024 11:45 AM EDT - 11/05/2024 11:59 PM EDT Hospital Encounter [facility] [address] [place] [address] Cancer of prostate w/low recurrence risk (T1-2a, Dariela<7 & PSA<10) (HCC) Discharge Disposition: Home or Self Care 08/05/2024 Refill [facility] [address] [place] [address] Elizabeth Jasso APRN Medication Refill 06/10/2024 Refill [facility] [place] [address] Jazmin Hampton APRN Medication Refill 05/10/2024 9:00 AM EDT Procedure visit [address] [phone] Brandon Acevedo MD Cancer of prostate w/low recurrence risk (T1-2a, Dariela<7 & PSA<10) (HCC) (Primary Dx); Gross hematuria 05/08/2024 8:37 AM EDT - 05/08/2024 11:59 PM EDT [facility] [address], [place] [address] Pk Vega PA Gross hematuria Discharge Disposition: Home or Self Care 05/07/2024 Travel 04/18/2024 11:20 AM EDT Office Visit [address] [phone] Pk Vega PA Abnormal urine (Primary Dx); Gross hematuria; Lower urinary tract symptoms (LUTS) 04/16/2024 Orders Only [address] [phone] Brandon Acevedo MD Elevated PSA (Primary Dx) 04/12/2024 Orders Only [address] [phone] Brandon Acevedo MD Cancer of prostate w/low recurrence risk (T1-2a, Dariela<7 & PSA<10) (HCC) (Primary Dx); Elevated PSA 04/12/2024 1:13 PM EDT - 04/12/2024 11:59 PM EDT Hospital Encounter [facility] [address], [place] [address] Cancer of prostate w/low recurrence risk (T1-2a, Cerro<7 & PSA<10) (HCC); Elevated PSA Discharge Disposition: Home or Self Care 04/11/2024 Refill [facility] [address] [place] [phone] Jazmin Hampton, INTERIOR PAINTER Medication Refill 02/26/2024 Refill [facility] [address] [place] [address] Elizabeth Jasso, INTERIOR PAINTER Medication Refill 02/12/2024 Refill [facility] [address] [phone] Jazmin Hampton, INTERIOR PAINTER Medication Refill 02/12/2024 Refill [facility] [address] [place] [address] Elizabeth Jasso, INTERIOR PAINTER Medication Refill 12/11/2023 Refill [facility] [address] [phone] Jazmin Hampton, INTERIOR PAINTER Medication Refill 11/13/2023 Refill [facility] Urology NPTFTT [address] [place] [phone] Brandon Acevedo MD Medication Refill 11/09/[address] [phone] Brandon Acevedo MD Prior Authorization 11/09/2023 1:20 PM EDT [facility] [address] [phone] Brandon Acevedo MD Feeling of incomplete bladder emptying (Primary Dx); Cancer of prostate w/low recurrence risk (T1-2a, Dariela<7 & PSA<10) (HCC); Lower urinary tract symptoms (LUTS) 11/03/2023 1:38 PM EDT - 11/03/2023 11:59 PM EDT Hospital Encounter [facility] [address] [place] [address] Elevated PSA; Cancer of prostate w/low recurrence risk (T1-2a, Cerro<7 & PSA<10) ([facility]) Discharge Disposition: Home or Self Care 10/11/2023 Refill [facility] Urology [address] [phone] Jazmin Hampton APRN Medication Refill 10/02/2023 Telephone [facility] Urology NPTFTT [address] [place] [address] Brandon Acevedo MD Schedule Appointment 08/08/2023 Refill [facility] Urology [address] [phone] Jazmin Hampton APRN Medication Refill 06/12/2023 Refill [facility] [address] [phone] Brandon Acevdeo MD Medication Refill 05/26/[address] [phone] Brandon Acevedo MD Prior Authorization (Tolterodine 4mg capsule) 05/23/2023 10:20 AM EDT Office Visit [address] [phone] Brandon Acevedo MD Cancer of prostate w/low recurrence risk (T1-2a, Dariela<7 & PSA<10) ([facility]) (Primary Dx); Lower urinary tract symptoms (LUTS) 05/22/2023 8:37 AM EDT - 05/22/2023 11:59 PM EDT Hospital Encounter [facility] [address] [place] [address] Cancer of prostate w/low recurrence risk (T1-2a, Dariela<7 & PSA<10) ([facility]) Discharge Disposition: Home or Self Care 02/20/2023 10:20 AM EDT Office Visit [facility] [address] [phone] Brandon Acevedo MD Cancer of prostate w/low recurrence risk (T1-2a, Cerro<7 & PSA<10) (HCC) (Primary Dx) 02/16/2023 Travel 02/16/2023 9:16 AM EDT - 02/16/2023 11:59 PM EDT Hospital Encounter [facility] [address], [place] [address] Cancer of prostate w/low recurrence risk (T1-2a, Dariela<7 & PSA<10) (HCC) Discharge Disposition: Home or Self Care 11/30/2022 2:20 PM EDT Office [facility] [address] [phone] Michelle Morales PA-C Abnormal urine (Primary Dx); Benign prostatic hyperplasia with urinary frequency; Cancer of prostate w/low recurrence risk (T1-2a, Dariela<7 & PSA<10) (HCC); Lower urinary tract symptoms (LUTS) 11/25/2022 Orders Only [facility] Urology [address] [place] [address] Brandon Acevedo MD Cancer of prostate w/low recurrence risk (T1-2a, Cerro<7 & PSA<10) (HCC) (Primary Dx) 11/24/2022 Travel 11/24/2022 1:04 PM EDT - 11/24/2022 11:59 PM EDT Hospital Encounter [facility] [address], [place] [address] Cancer of prostate w/low recurrence risk (T1-2a, Dariela<7 & PSA<10) (HCC) Discharge Disposition: Home or Self Care 06/02/2022 1:40 PM EDT Office Visit [address] [phone] Brandon Acevedo MD Cancer of prostate w/low recurrence risk (T1-2a, Cerro<7 & PSA<10) (HCC) (Primary Dx) 05/31/2022 Refill [facility] [place] [address] Brandon Acevedo MD Medication Refill 05/27/2022 Orders Only [facility] Urology [address] [phone] Brandon Acevedo MD Cancer of prostate w/low recurrence risk (T1-2a, Dariela<7 & PSA<10) (HCC) (Primary Dx) 05/26/2022 Travel 05/26/2022 1:10 PM EDT - 05/26/2022 11:59 PM EDT Hospital Encounter [facility] [address], [place] [phone] Cancer of prostate w/low recurrence risk (T1-2a, Cerro<7 & PSA<10) (HCC) Discharge Disposition: Home or Self Care 05/19/2022 Orders Only [facility] [address] [phone] Brandon Acevedo MD Cancer of prostate w/low recurrence risk (T1-2a, Dariela<7 & PSA<10) (HCC) (Primary Dx) 05/19/2022 Telephone [facility]PT[facility] [address] [place] [address] Brandon Acevedo MD Patient Question 05/02/2022 Refill [facility] [address] [phone] Brandon Acevedo MD Medication Refill 04/04/2022 Orders Only [facility] [address] [phone] Gracia See MA Benign prostatic hyperplasia with urinary frequency (Primary Dx) 03/15/2022 Telephone [facility] [address] [place] [address] Brandon Acevedo MD Results 03/10/2022 Travel 03/10/2022 3:09 PM EDT - 03/10/2022 11:59 PM EDT Hospital Encounter [facility] [address], [place] [phone] Cancer of prostate w/low recurrence risk (T1-2a, Cerro<7 & PSA<10) (HCC) Discharge Disposition: Home or Self Care 02/28/2022 Refill [facility] [address] [place] [phone] Brandon Acevedo MD Medication Refill 02/01/[address] [place] [phone] Brandon Acevedo MD Medication Refill 01/03/[address] [place] [phone] Brandon Acevedo MD Medication Refill 12/07/[address] [place] [phone] Brandon Acevedo MD Medication Refill 11/26/2021 1:30 PM EDT Office Visit [address] [place] [phone] Brandon Acevedo MD Cancer of prostate w/low recurrence risk (T1-2a, Cerro<7 & PSA<10) (HCC) (Primary Dx) 11/04/[address] [place] [phone] Brandon Acevedo MD Medication Refill 10/25/[address] [place] [address] Brandon Acevedo MD Results 10/12/2021 3:40 PM EST Procedure visit [address] [place] [phone] Brandon Acevedo MD Elevated PSA (Primary Dx) 09/08/2021 Refill [facility] [place] [address] [facility] [address] [place] [address] Brandon Acevedo MD Medication Refill 08/30/2021 Orders Only [facility] [place] [address] [place] [address] [address] [place] [address] Brandon Acevedo MD 08/27/2021 2:18 PM EST - 08/27/2021 11:59 PM EST Hospital Encounter [facility] [address] [place] [address] Elevated PSA Discharge Disposition: Home or Self Care 08/27/2021 Orders Only [facility] [address] [place] [phone] Brandon Acevedo MD Elevated PSA (Primary Dx) 08/27/2021 Travel 06/08/2021 10:15 AM EDT - 06/08/2021 11:59 PM EDT Hospital Encounter [facility] [address] [facility] [address] [place] [address] Prostate cancer screening Discharge Disposition: Home or Self Care 06/08/2021 Travel 06/08/2021 9:20 AM EDT Office Visit [facility] Urology [address] [place] [phone] Brandon Acevedo MD Benign prostatic hyperplasia with urinary frequency (Primary Dx); Prostate cancer screening; Elevated PSA 04/10/2015 1:00 PM EDT - 04/10/2015 1:30 PM EDT Surgery [facility] [address] [place] [address] Petey Jimenez MD KNEE ARTHROSCOPY MENISCECTOMY/REPAIR (ALSO COVERS ARTHROSCOPIC INCISION AND DRAINAGE/DEBRIDEMENT) 04/10/2015 1:42 PM EDT Anesthesia Event [facility] [address] [place] [address] Eddi Dumont MD Rice, Richard B, MD 04/10/2015 11:07 AM EDT - 04/10/2015 3:40 PM EDT Hospital Encounter [facility] [address] [place] [address] Petey Jimenez MD Discharge Disposition: Home or [...] ons:Cancer of prostate w/low recurrence risk (T1-2a, Cerro<7 & PSA<10) (HCC) Take 2 Capsules by mouth nightly. 180 Capsule 3 11/12/2024 Active tolterodine (DETROL LA) 4 mg Oral Capsule, Sust. Release 24 hrIndications:L ower urinary tract symptoms (LUTS) Take 1 Capsule by mouth daily. 90 Capsule 2 11/12/2024 Active Active Problems Problem Noted Date Diagnosed Date Elevated PSA 10/02/2023 Social History Smoking Status as of 02/03/2025 Tobacco Use Types Packs/Day Years Used Date [...] 10:20 AM EDT Office Visit [facility] [address] [place] [phone] [place] [address] [place] [address] [place] [address] Procedures Procedure Name Priority Date/Time Associated Diagnosis [...] Cancer of prostate w/low recurrence risk (T1-2a, Cerro<7 & PSA<10) (HCC) Lower urinary tract symptoms [...] Cancer of prostate w/low recurrence risk (T1-2a, Cerro<7 & PSA<10) (HCC) URINALYSIS Routine 11/30/2022 3:19 PM EDT Abnormal urine URINE CULTURE (NO STAIN) Routine 11/30/2022 3:19 PM EDT Abnormal urine [facility] URINALYSIS POC Routine 11/30/2022 2: 23 PM EDT Abnormal urine PROSTATE SPECIFIC ANTIGEN (TUMOR MARKER) Routine 11/24/2022 1:14 PM EDT Cancer of prostate w/low recurrence risk (T1-2a, Cerro<7 & PSA<10) (HCC) SEP URINALYSIS POC Routine 06/02/2022 1: 35 PM EDT Cancer of prostate w/low recurrence risk (T1-2a, Cerro<7 & PSA<10) (HCC) PROSTATE SPECIFIC ANTIGEN (TUMOR MARKER) Routine 05/26/2022 1:15 PM EDT Cancer of prostate w/low recurrence risk (T1-2a, Dariela<7 & PSA<10) (HCC) PROSTATE SPECIFIC ANTIGEN (TUMOR MARKER) Routine 03/10/2022 3:10 PM EDT Cancer of prostate w/low recurrence risk (T1-2a, Dariela<7 & PSA<10) (HCC) SEP URINALYSIS POC Routine 11/26/2021 1: 35 PM EDT Cancer of prostate w/low recurrence risk (T1-2a, Cerro<7 & PSA<10) (HCC) PATHOLOGY TISSUE REQUEST Routine [...] of knee, current Special Needs FAX CPT 78846 POCT ISTAT CHEM8 VENOUS Routine 04/10/2015 12:57 [...] AM EDT [facility] Protein POC Negative Negative mg/dL 11/12/2024 10:26 AM EDT [facility] Urobilinogen POC 1.0 0.2, 1.0 11/12/2024 10:26 AM EDT [facility] UA Nitrite POC Negative Negative 11/12/2024 10:26 AM EDT [facility]A Leuk Est POC Negative Negative 10:26 AM EDT [facility] Urine STRUCTURE OF URINARY TRACT PROPER / Unknown 11/12/2024 10:24 AM EDT 11/12/2024 10:26 AM EDT Brandon Acevedo MD POINT OF CARE TEST ORDERA BLES Final Result [facility] [address] [place] [address] * (ABNORMAL) PROSTATE SPECIFIC ANTIGEN (TUMOR MARKER) (11/05/2024 11:48 AM EDT) Only the most recent of9 resultswithin the time period is included. Total Psa 5.34(H) <=4.00 ng/mL 11/05/2024 3:34 PM EDT [facility] Blood VENOUS BLOOD / Unknown Venipuncture / Unknown 11/05/2024 11:48 AM EDT 11/05/2024 11:48 AM EDT Narrative [facility] - 11/05/2024 3:34 PM EDT The Rigoberto [...] Acevedo MD CHEMISTRY ORDERABLES Nely sarah Result [facility] [address] [place] [address] , [address] [place] [id number] * CT ABDOMEN PELVIS HEMATURIA/RENAL MASS PROTOCOL [...] 05/08/2024 9:04 AM CLINICAL HISTORY: Hematuria. R31.0-Gross [id number]. COMPARISON: None. PROCEDURE COMMENTS: Multi-detector CT scanning [...] 05/08/2024 9:04 AM CLINICAL HISTORY: Hematuria. R31.0-Gross [id number]. COMPARISON: None. PROCEDURE COMMENTS: Multi-detector CT scanning [...] CREATININE ISTAT (05/08/2024 8:51 AM EDT) Pathologist [facility] Creatinine-iST AT 1.2 0.6 - 1.3 mg/dL 05/09/2024 9:53 AM EDT [facility] Blood BLOOD SPECIMEN / Unknown 05/08/2024 8:51 AM EDT 05/09/2024 9:53 AM EDT us Pk A Warning PA POINT OF CARE TEST ORDERABLE S Final Result [facility] [address] [place] [address] * SCANNED LABS (05/03/2024 1:15 PM EDT) [...] <=1 mg/dL 8:01 PM EDT PREFERRED LAB [facility] UA Bili Negative Negative 04/18/2024 8:01 PM EDT PREFERRED LAB [facility] UA Nitrite Negative Negative 04/18/2024 8:01 PM EDT PREFERRED LAB [facility], [facility] UA Leuk Est Negative Negative 04/18/2024 8:01 PM EDT PREFERRED LAB [facility] UA Spec Grav 1.025 1.001 - 1.035 no units 04/18/2024 8:01 PM EDT PREFERRED LAB [facility], [facility] Comment:Reference range dorian d for random specimens only. Urine URINE SPECIMEN COLLECTION, CLEAN CATCH / Unknown 04/18/2024 12:51 PM EDT 04/18/2024 12:51 PM EDT us Pk Chanel Warning PA URINE ORDERABLES Final Resul t [facility], [address] , [place] [address] * POCT BLADDER SCAN (11/09/2023 1:32 PM [...] commensal organisms. 12/02/2022 6:16 AM EDT PREFERRED [facility], [facility] Urine URINE SPECIMEN COLLECTION, CLEAN CATCH / Unknown 11/30/2022 3:19 PM EDT 11/30/2022 3:19 PM EDT us Michelle Morales PA-C MICROBIOLOGY - GENERAL ORDE ANNABE[place]A Final Result PREFERRED LAB [facility], [address], [place] [address] * PATHOLOGY TISSUE REQUEST (10/12/2021 4:15 PM EST) CASE REPORT Surgical Pathology Case: [id number] Authorizing Provider: Brandon Acevedo MD Collected: 10/12/[id number] Ordering Location: [facility] Received: 10/12/20211614 Pathologist: Luz Matthews MD Specimens: A) - Prostate, RB B) - Prostate, RM C) - Prostate, RA D) - Prostate, LB E) - Prostate, LM F) - Prostate, LA 10/15/2021 12:12 PM EST [email or web address] FINAL DIAGNOSIS A) Prostate, right [...] left mid, needle biopsy: - Prostatic adenocarcinoma, Dariela score [...] Matthews on 10/15/2021. 10/15/2021 12:12 PM EST [facility] at 1212 EST COMMENT CANCER CASE SUMMARY: - Highest Cerro score: 6 (3+3); Grade Group 1 - Number cores involved: 4 - Number cores submitted: 16 - Longest tumor focus in single core: 3 mm - Highest tumor %: 18% - Bilateral: No - Perineural invasion: No - Extraprostatic extension: No 10/15/2021 12:12 PM [facility] GROSS DESCRIPTION A. Received in formalin [...] developed and their performance characteristics determined by [facility]. They have not been cleared [...] in block A. 10/15/2021 12:12 PM EST [facility] BEST TISSUE BLOCK FOR ANCILLARY STUDIES E1 10/15/2021 12:12 PM EST [facility] EMBEDDED IMAGES 10/15/2021 12:12 PM EST [facility] Tissue SPECIMEN FROM PROSTATE / Unknown 10/12/2021 [...] Acevedo MD PATHOLOGY ORDERABLES Nely smith Result [facility] [address] [place] [address] * (ABNORMAL) PROSTATE SPECIFIC ANTIGEN (SCREENING) (06/08/2021 10:15 AM EDT) Total Psa 4.92(H) <=4.00 ng/mL 06/08/2021 1:59 PM EDT [facility] Blood VENOUS BLOOD / Unknown Venipuncture / Unknown 06/08/2021 10:15 AM EDT 06/08/2021 10:15 AM EDT Narrative [facility] - 06/08/2021 1:59 PM EDT Prostate cancer [...] Acevedo MD CHEMISTRY ORDERABLES Nely l Result [facility] [address] [place] [address] , [place] [address] * SCANNED EKG (04/17/2015 2:49 [...] EDT) Sodium 140 135 - 143 mmol/L [facility] Potassium 4.0 3.5 - 5.0 mmol/L [facility] Calcium Ion 1.19 1.12 - 1.32 mmol/L [facility] Chloride iStat 102 98 - 109 mmol/L [facility] tCO2 Abundio 27 24 - 29 mmol/L [facility] Anion Gap 16 10 - 20 [facility] Glucose 90 70 - 105 mg/dL [facility] BUN 20 8 - 26 mg/dL [facility] Creatinine 1.1 0.6 - 1.3 mg/dL [facility] Blood specimen (specimen) 04/10/2015 12:57 PM EDT 04/10/2015 12:57 PM EDT Petey Jimenez MD POINT OF CARE TEST ORDERABLES F inal Result [facility] [address] [place] [address] * DX BONE DENSITY AXIAL SKELETON (02/06/2014 [...] Cancer of prostate w/low recurrence risk (T1-2a, Cerro<7 & PSA<10) (HCC) Malignant neoplasm of prostate 11/26/2021 Cancer of prostate w/low recurrence risk (T1-2a, Cerro<7 & PSA<10) (HCC) Malignant neoplasm of prostate 03/10/2022 Benign prostatic hyperplasia with urinary frequency 04/04/2022 Benign prostatic hyperplasia with urinary frequency 05/02/2022 Cancer of prostate w/low recurrence risk (T1-2a, Cerro<7 & PSA<10) (HCC) Malignant neoplasm of prostate 05/19/2022 Cancer of prostate w/low recurrence risk (T1-2a, Dariela<7 & PSA<10) (HCC) Malignant neoplasm of prostate 05/26/2022 Cancer of prostate w/low recurrence risk (T1-2a, Cerro<7 & PSA<10) (HCC) Malignant neoplasm of prostate [...] Cancer of prostate w/low recurrence risk (T1-2a, Cerro<7 & PSA<10) (HCC) Malignant neoplasm of prostate 11/30/2022 Lower urinary tract symptoms (LUTS) Other symptoms involving urinary system 11/30/2022 Cancer of prostate w/low recurrence risk (T1-2a, Dariela<7 & PSA<10) (HCC) Malignant neoplasm of prostate 02/16/2023 Cancer of prostate w/low recurrence risk (T1-2a, Cerro<7 & PSA<10) (HCC) Malignant neoplasm of prostate 02/20/2023 Cancer of prostate w/low recurrence risk (T1-2a, Dariela<7 & PSA<10) (HCC) Malignant neoplasm of prostate 05/22/2023 Cancer of prostate w/low recurrence risk (T1-2a, Cerro<7 & PSA<10) (HCC) Malignant neoplasm of prostate 05/23/2023 Lower urinary tract symptoms (LUTS) Other symptoms involving urinary system 05/23/2023 Cancer of prostate w/low recurrence risk (T1-2a, Cerro<7 & PSA<10) (HCC) Malignant neoplasm of prostate 06/12/2023 Cancer of prostate w/low recurrence risk (T1-2a, Cerro<7 & PSA<10) (HCC) Malignant neoplasm of prostate 08/08/2023 Elevated PSA Elevated prostate specific antigen (PSA) 10/02/2023 Cancer of prostate w/low recurrence risk (T1-2a, Dariela<7 & PSA<10) (HCC) Malignant neoplasm of prostate 10/02/2023 Cancer of prostate w/low recurrence risk (T1-2a, Cerro<7 & PSA<10) (HCC) Malignant neoplasm of prostate 10/11/2023 Elevated PSA Elevated prostate specific antigen (PSA) 11/03/2023 Cancer of prostate w/low recurrence risk (T1-2a, Dariela<7 & PSA<10) (HCC) Malignant neoplasm of prostate 11/03/2023 Cancer of prostate w/low recurrence risk (T1-2a, Cerro<7 & PSA<10) (HCC) Malignant neoplasm of prostate 11/09/2023 Lower urinary tract symptoms (LUTS) Other symptoms involving urinary system 11/09/2023 Feeling of incomplete bladder emptying Incomplete bladder emptying 11/09/2023 Cancer of prostate w/low recurrence risk (T1-2a, Dariela<7 & PSA<10) (HCC) Malignant neoplasm of prostate 12/11/2023 Cancer of prostate w/low recurrence risk (T1-2a, Cerro<7 & PSA<10) (HCC) Malignant neoplasm of prostate 02/12/2024 Cancer of prostate w/low recurrence risk (T1-2a, Cerro<7 & PSA<10) (HCC) Malignant neoplasm of prostate 04/11/2024 Cancer of prostate w/low recurrence risk (T1-2a, Dariela<7 & PSA<10) (HCC) Malignant neoplasm of prostate 04/12/2024 Elevated PSA Elevated prostate specific antigen (PSA) 04/12/2024 Cancer of prostate w/low recurrence risk (T1-2a, Cerro<7 & PSA<10) (HCC) Malignant neoplasm of prostate [...] Cancer of prostate w/low recurrence risk (T1-2a, Cerro<7 & PSA<10) (HCC) Malignant neoplasm of prostate 11/05/2024 Cancer of prostate w/low recurrence risk (T1-2a, Cerro<7 & PSA<10) (HCC) Malignant neoplasm of prostate 11/12/2024 Lower urinary tract symptoms (LUTS) Other symptoms involving urinary system 11/12/2024 Goals Goal Patient Goal Type Associated Problems Recent Progress Patient-Stated? Author Blood Pressure < 140/90 Blood Pressure 126/62(2024 10:31 AM EDT) Tigist Farfan MA Maintain a healthy diet, exercise regularly and maintain an ideal body weight General Tigist Farfan MA Care Teams University Archivist Relationship Specialty Start Date End Date Lei Donaldson MD [address] [place] [phone] PCP - General Family Medicine 02/06/14
--- OUTSIDE RECORDS SUMMARY | 2025-02-03 07:48 | XMS_ITS | Data Portability ---
Author Organization [place] - [facility] Address [address] [place] [address] Assessment Encounter Date Assessment Date Assessment LastModified by Organization Details LastModified Time 08/31/2022 08/31/2022 -f/u prn continued or worsening symptoms. [email or web address] Not available 09/01/2022 00:00:02 04/03/2023 04/03/2023 -active with urology for ongoing surveillance, last visit in February -active with cardiology for ongoing surveillance, last visit this year -continue meds as prescribed F/u with me in 6 months [email or web address] Not available 05/15/2023 00:04:50 Plan of Treatment Reminders Order Date Submit Date Provider Last Modified By Organization Details Last Modified Time Details Appointments None recorded . Lab urinalys is, dipstick 2023 024 [email or web address] [facility], [address] [place], [address], 4 09:44:30 culture, urine 2023 024 [email or web address] [facility], [address], [address], [place], [address], 4 09:55:37 PSA, serum or plasma 2023 024 KENDY [facility], [address], [address], [place], [address], 4 07:39:19 Referral None recorded . Procedures None recorded . Surgeries None recorded . Imaging None recorded . Medication Orders warfarin 6 mg tablet 2023 024 [facility], [address] [place] [address], [id number], 4 12:02:07 warfarin 5 mg tablet 2023 024 [facility], [address] [place] [address], [id number], 4 12:02:03 metoprol ol succinat e ER 25 mg tablet,e xtended release 24 hr 2023 024 [facility], [address] [place] [address], [id number], 4 09:45:52 cetirizi ne 10 mg tablet 2022 023 [facility], [address] [place] [address], [address], 3 10:06:34 simvasta tin 20 mg tablet [email or web address] [facility], [address] [place] [address], [address], 4 09:26:45 nystatin -triamci nolone 100,000 unit/g-0 .1 % topical cream [address] [facility], [address] [place] [address], [address], 4 08:44:01 prometha zine 6.25 mg-codei ne 10 mg/5 mL syrup [address] [facility], [address] [place] [address], [address], 3 09:37:21 predniso ne 20 mg tablet [address] [facility], [address] [place] [address], [address], 3 09:37:18 doxycycl ine hyclate 100 mg tablet 2022 023 [email or web address] [facility], [address] [place] [address], [id number], 3 09:36:19 Patient TargetsNo targets recorded. Patient Instructions Encounter Date Encounter Id Patient Instructions Last Modified By Organization Details Last Modified Time 02/05/2024 [id number] body mass index: care instructions Not available 02/05/2024 11:20:37 Advised to take medication as directed Discussed precautions and risks of oral anticoagulations. Encouraged to follow heart healthy lifestyle - low fat diet and aim for 30 minutes per day of physical exercise. To call office for questions, concerns or issues Not available 02/05/2024 11:26:19 03/29/2024 [id number] body mass index: care instructions [email or web address] Not available 03/29/2024 09:44:28 Reason for Referral None Reported. Results Created Date Observation Date Name Description Value Unit Range Abnormal Flag Note LastModifiedBy Organization Detail LastModifiedTime 08/19/1908/19/2022 rapid flu (A+B) Flu positi ve Not Available [facility] [address] [place], [address], 08/19/2022 16:25:14 08/19/19 23 08/19/2022 rapid flu (A+B) Type A Not Available [facility] [address] [place], [address], 08/19/2022 16:25:14 08/14/19 24 08/14/2023 INR INR 4.1 ratio 2.5-3. 5 high RCS - IVR Resul t From Phone #: Not Available [facility] [address] [place] [address] [address], [place], [address], 08/14/2023 13:45:17 08/21/19 24 08/21/2023 INR INR 2.3 ratio 2.5-3. 5 low RCS - IVR Resul t From Phone #: Not Available [facility] [address], [place], [address], 08/21/2023 08:44:49 08/28/19 24 08/28/2023 INR INR 2.1 ratio 2.5-3. 5 low RCS - IVR Resul t From Phone #: Not Available [facility] [address], [place], [address], 08/28/2023 08:05:05 09/04/19 24 09/04/2023 INR INR 3.1 ratio 2.5-3. 5 normal RCS - IVR Resul t From Phone #: [phone] Not Available [facility] [address], [place], [address], 09/04/2023 08:04:37 09/12/19 24 09/12/2023 INR INR 2.9 ratio 2.5-3. 5 normal RCS - IVR Resul t From Phone #: Not Available [facility] [address], [place], [address], 09/12/2023 09:20:23 09/19/19 24 09/19/2023 INR INR 3.9 ratio 2.5-3. 5 high RCS - IVR Resul t From Phone #: Not Available [facility] [address], [place], [address], 09/19/2023 08:09:35 09/25/19 24 09/25/2023 INR INR 2.7 ratio 2.5-3. 5 normal RCS - IVR Resul t From Phone #: [phone] Not Available [facility] [address], [place], [address], 09/25/2023 09:04:40 10/02/19 24 10/02/2023 INR INR 2.9 ratio 2.5-3. 5 normal RCS - IVR Resul t From Phone #: [phone] Not Available [facility] [address], [place], [address], 10/02/2023 09:29:52 10/09/19 24 10/09/2023 INR INR 2.7 ratio 2.5-3. 5 normal RCS - IVR Resul t From Phone #: Not Available [facility] [address], [place], [address], 10/09/2023 08:50:10 10/16/19 24 10/16/2023 INR INR 2.4 ratio 2.5-3. 5 low RCS - IVR Resul t From Phone #: Not Available [facility] [address], [place], [address], 10/16/2023 08:34:32 10/23/19 24 10/23/2023 INR INR 2.9 ratio 2.5-3. 5 normal RCS - IVR Resul t From Phone #: Not Available [facility] [address], [place], [address], 10/23/2023 08:35:25 10/30/19 24 10/30/2023 INR INR 2.4 ratio 2.5-3. 5 low RCS - IVR Resul t From Phone #: Not Available [facility] [address], [place], [address], 10/30/2023 08:34:45 11/06/19 24 11/06/2023 INR INR 3.5 ratio 2.5-3. 5 normal RCS - IVR Resul t From Phone #: [phone] Not Available [facility] [address], [place], [address], 11/06/2023 08:10:12 11/13/19 24 11/13/2023 INR INR 2.9 ratio 2.5-3. 5 normal RCS - IVR Resul t From Phone #: Not Available [facility] [address], [place], [address], 11/13/2023 09:55:19 11/20/19 24 11/20/2023 INR INR 3.4 ratio 2.5-3. 5 normal RCS - IVR Resul t From Phone #: [phone] Not Available [facility] [address], [place], [address], 11/20/2023 08:20:22 11/27/19 24 11/27/2023 INR INR 3.7 ratio 2.5-3. 5 high RCS - pt inr verif ied name Not Available [facility] [address], [place], [address], 11/27/2023 11:20:21 12/18/19 24 12/18/2023 INR INR 2.7 ratio 2.5-3. 5 normal RCS - Pt dawson d in to repor t INR / Verif ied name and Not Available [facility] [address], [place], [address], 12/18/2023 10:14:48 12/25/19 24 12/25/2023 INR INR 4.2 ratio 2.5-3. 5 high RCS - Pt dawson d in to repor t INR / Verif ied name, , and pin. Not Available [facility] [address], [place], [address], 12/28/2023 14:44:59 01/01/20 24 01/01/2024 INR INR 3.5 ratio 2.5-3. 5 normal RCS - Pt dawson d in to repor t inr / verif ied the name, and pin, backd ated Not Available [facility] [address], [place], [address], 01/18/2024 09:25:30 01/08/20 24 01/08/2024 INR INR 3 ratio 2.5-3. 5 normal RCS - Pt dawson d in to repor t inr / verif ied the name, and pin, backd ated Not Available [facility] [address], [place], [address], 01/18/2024 09:25:31 01/15/20 24 01/15/2024 INR INR 3 ratio 2.5-3. 5 normal RCS - Pt dawson d in to repor t inr / verif ied the name, and pin, backd ated Not Available [facility] [address], [place], [address], 01/18/2024 09:25:33 03/29/20 24 03/29/2024 PSA TOTAL (REFL EX TO FREE) reflex criteria Commen t The perce nt free PSA is perfo rmed on a refle x basis only when the total PSA is betwe en 4.0 and 10.0 ng/mL . Not Available [facility] ([facility]) [address], [place], [address], 03/30/2024 07:39:19 03/29/20 24 03/30/2024 PSA TOTAL (REFL EX TO FREE) prostate specific Ag 4.9 NG/mL 0.0-4. 0 above high normal Rigoberto ECLIA metho dolog y. Accor marcell to the Ameri can [employer]o g[employer] iatio n, Serum PSA shoul d decre ase and remai n at undet ectab le level s after radic al prost atect maria isabel. The AUA defin es bioch emica l recur rence as an initi al PSA value 0.2 ng/mL or great er follo wed by a subse quent confi rmato ry PSA value 0.2 ng/mL or great er. Value s obtai anirudh with diffe rent assay metho ds or kits canno t be used inter abdi eably . Resul ts canno t be inter prete d as absol ambar evide nce of the prese nce or absen ce of christian huff se. Not Available [facility] ([facility]) [address] [place], [address], 03/30/2024 07:39:19 03/29/20 24 03/30/2024 PSA TOTAL (REFL EX TO FREE) PSA, free 1.13 NG/mL n/a Rigoberto ECLIA metho dolog y. Not Available [facility] ([facility]) [address] [place], [address], 03/30/2024 07:39:19 03/29/20 24 03/30/2024 PSA TOTAL (REFL EX TO FREE) % free PSA 23.1 % The table below lists the proba bilit y of prost ate cance r for men with non-s uspic ious MEIR resul ts and total PSA betwe en 4 and 10 ng/mL , by patie nt age (Barb bhakti et al, TERELL 1998, 279:1 542). % Free PSA 50-64 yr 65-75 yr 0.00- 10.00 % 56% 55% 10.01 -15.0 0% 24% 35% 15.01 -20.0 0% 17% 23% 20.01 -25.0 0% 10% 20% >25.0 0% 5% 9% Pleas e note: Héctor lopez al did not make speci fic recom menda tions regar marcell the use of perce nt free PSA for any other popul ation of men. Not Available [facility] ([facility]) [address], [place], [address], 03/30/2024 07:39:19 03/29/20 24 03/29/2024 urina lysis , dipst ick Leukocytes Negati ve Not Available [address] [place], [address], 03/29/2024 09:24:49 03/29/20 24 03/29/2024 urina lysis , dipst ick Nitrite negati ve Not Available [address] [place], [address], 03/29/2024 09:24:49 03/29/20 24 03/29/2024 urina lysis , dipst ick Urobilinogen .2 Not Available [address] [place], [address], 03/29/2024 09:24:49 03/29/20 24 03/29/2024 urina lysis , dipst ick Protein Negati ve Not Available [address] [place], [address], 03/29/2024 09:24:49 03/29/20 24 03/29/2024 urina lysis , dipst ick pH 5.5 Not Available [address] [place], [address], 03/29/2024 09:24:49 03/29/20 24 03/29/2024 urina lysis , dipst ick Blood Large Not Available [address] [place], [address], 03/29/2024 09:24:49 03/29/20 24 03/29/2024 urina lysis , dipst ick Specific [place] 1.025 Not Available [address] [place], [address], 03/29/2024 09:24:49 03/29/20 24 03/29/2024 urina lysis , dipst ick Ketone Trace Not Available [address] [place], [address], 03/29/2024 09:24:49 03/29/20 24 03/29/2024 urina lysis , dipst ick Bilirubin Negati ve Not Available [address] [place], [address], 03/29/2024 09:24:49 03/29/20 24 03/29/2024 urina lysis , dipst ick Glucose Negati ve Not Available [address] [place], [address], 03/29/2024 09:24:49 03/29/20 24 03/29/2024 urina lysis , dipst ick Appearance Clear Not Available [address] [place], [address], 03/29/2024 09:24:49 03/29/20 24 03/29/2024 urina lysis , dipst ick Color Yellow Not Available [address] [place], [address], 03/29/2024 09:24:49 08/08/20 22 08/08/2022 cardi ac stres s test No observ ation record ed. [address], [place], [address], 08/11/2022 08:56:47 08/08/20 22 08/08/2022 US, echoc ardio gram, trans thora cic, compl ete No observ ation record ed. [address], [place], [address], 08/11/2022 08:56:57 08/08/20 22 08/08/2022 cardi ac stres s test No observ ation record ed. [address], [place], [address], 08/11/2022 08:57:25 08/09/20 22 08/08/2022 US, ariella x, carot id arter y No observ ation record ed. [address], [place], [address], 08/11/2022 08:57:40 08/10/20 22 08/10/2022 CT, angio gram, chest , w/ contr ast No observ ation record ed. [address], [place], [address], 08/11/2022 08:57:59 08/19/19 23 08/22/2022 XR, chest , 2 view No observ ation record ed. [place] [address] [place], [address], 08/22/2022 08:14:52 08/19/19 23 08/19/2022 XR, chest , 2 view No observ ation record ed. [address] [place], [address], 08/19/2022 17:24:58 05/24/20 23 03/03/2023 DEXA No observ ation record ed. [email or web address], [place], [address], 05/25/2023 00:20:24 12/24/1912/21/2023 US, doppl er echoc ardio gram No observ ation record ed. [email or web address] [facility] [address], [place], [address], 12/26/2023 10:19:12 Result Notes None recorded. Problems Name Problem SNOMED Code Status Onset Date Resolution Date Notes Provider Name and Address Organization Details Recorded Time Bradycar hortencia 87961711 Active [place] null, [place] - [facility] 8 10:28:24 First degree atrioven tricular block 588702987 Active [place], [place] - [facility] 8 10:28:24 Syncope and collapse 035305451 Completed 06/30/2019 Elizabeth Jasso APRN [address], [place], [address], [place] - [facility] 9 19:25:54 Sinus bradycar hortencia 15943207 Active [place] null, [place] - [facility] 8 10:28:24 Gastroin testinal hemorrha ge 37627458 Completed 06/30/2019 Elizabeth Jasso APRN [address], [place], [address], [facility] - [facility] 9 19:25:49 Tachycar hortencia-gregory ycardia 68143780 Active [place] null, [place] - [facility] 8 10:28:24 History of mitral valve replacem ent 99833708298 09 Active [place] null[place] - [facility] 8 10:28:24 Syncope 189919209 Completed 06/30/2019 Elizabeth Jasso APRN [address], [place], [address], [place] - [facility] 9 19:25:57 Implanta tion of internal cardiac defibril lator Active 2018 [facility] Elizabeth Jasso APRN [address], [place], [address], [place] - [facility] 9 22:00:39 Gynecoma stia 1341525 Active 2018 mammogra m 02/2019 Elizabeth Jasso, [employer] [address], [place], [address], [place] - [facility] 9 11:16:55 Pure hypercho lesterol emia 318962916 Active 2020 Rimma Harsh null, [place] - [facility] 1 14:17:47 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 Procedures Surgical History Date Name Laterality Status Provider Name and Address Organization Details Recorded Time 1 Advance Care Planning completed Mike Bales [place] - [facility] 04/27/2021 08:34:38 1 Functional Status Assessed completed Mike Bales [place] - [facility] 04/27/2021 08:34:38 0 Systolic B/P less than 130 [facility] [place] [facility] 01/23/2020 15:20:16 0 Diastolic B/P less than 80 mm Hg completed Justine Andrew [place] - [facility] 01/23/2020 15:20:18 9 Advance Care Planning completed Mike Palomaresegar [place] - [facility] 06/28/2019 08:55:55 9 Functional Status Assessed completed Mike Snedegar [place] - [facility] 06/28/2019 08:55:55 8 Colonoscopy completed Daya Suresh RN [address], [place], [address], [place] - [facility] 02/18/2020 11:52:54 Knee Surgery completed Felicita Nayeli [place] [facility] 01/23/2018 11:37:36 Cardiac Surgery completed Orin Andrade [place] - [facility] 02/02/2018 15:48:59 Pacemaker Placement completed Mike Palomaresegar [place] - [facility] 06/28/2019 08:59:47 Imaging Results None recorded. Procedure Notes None recorded. Medical Equipment None Reported. Allergies Allergen ID Allergen Name Allergen Category Reaction Reaction Severity Criticality Documentation Date Start Date Code Code System Note Provider Name and Address Organization Details Recorded Time 81411 Product containin g penicilli n (product) medicatio n rash Not available Not available 05/20/20162008 69377 8001 SNOMED Not Available [facility] 6 10:07:30 Medications Name Sig Start Date Stop Date Status Note LastModified by Organization Details LastModified Time carvedilo l 6.25 mg tablet take 1 tablet (6.25 mg) by oral route 2 times per day with food 02/08 completed Not Available Not Available Not Available clindamyc in HCl 300 mg capsule TAKE 1 CAPSULE BY MOUTH 3 TIMES A DAY FOR 10 DAYS 02/04 completed Not Available Not Available Not Available azithromy roberto 250 mg tablet TAKE 2 TABLETS (500 MG) BY ORAL ROUTE ONCE DAILY FOR 1 DAY THEN 1 TABLET (250 MG) BY ORAL ROUTE ONCE DAILY FOR 4 DAYS 08/19 completed Not Available Not Available Not Available ofloxacin 0.3 % eye drops 02/04 completed Not Available Not Available Not Available nystatin 100,000 unit/gram topical ointment 09/03 completed Not Available Not Available Not Available metoprolo l succinate ER 50 mg tablet,ex tended release 24 hr TAKE 1 TABLET BY MOUTH DAILY FOR 30 DAYS. 02/04 completed Not Available Not Available Not Available hydrocodo ne 5 mg-acetam inophen 325 mg tablet 02/08 completed Not Available Not Available Not Available hydrocort isone 1 % topical ointment 08/31 completed Not Available Not Available Not Available Celestone Soluspan 6 mg/mL suspensio n for injection Take 1 mL by injectio n route. 08/19 completed Not Available Not Available Not Available fluconazo le 200 mg tablet 02/08 completed Not Available Not Available Not Available prednison e 20 mg tablet Take 1 tablet every day by oral route for 5 days. 04/03 completed Not Available Not Available Not Available metoprolo l succinate ER 100 mg tablet,ex tended release 24 hr Take 1 tablet every day by oral route as directed for 30 days. 02/04 completed Not Available Not Available Not Available prednison e 5 mg tablet 01/25 completed Not Available Not Available Not Available promethaz ine 6.25 mg-codein e 10 mg/5 mL syrup Take 5 mL every 6 hours by oral route as needed. 04/03 completed Not Available Not Available Not Available warfarin 2.5 mg tablet 01/23 completed Not Available Not Available Not Available Flonase 50 mcg/actua tion nasal spray,sherry pension inhale 2 sprays (100 mcg) in each nostril by intranas al route once daily 07/21 completed Flonase 50 mcg/actu ation nasal spray,moreno spension ;Prescri be Status: Prescrib ed on: 10/11/19 14 2:06PM;D iscontin ued Status: Disconti nued on: 07/21/20 14 1:21PM;U ser: grayn;Es t. Completi on: 01/10/20 14;Indic ation: Allergic Rhinitis - ([id number] );Phar Todd fied: 10/11/19 14 2:06PM Not Available Not Available Not Available sulfameth oxazole 800 mg-trimet hoprim 160 mg tablet 09/03 completed Not Available Not Available Not Available hydrocodo ne 10 mg-acetam inophen 325 mg tablet 02/08 completed Not Available Not Available Not Available sildenafi l 25 mg tablet TAKE PRN FOR INTERCOU RSE active Not Available Not Available No t Available triamcino lone acetonide 0.1 % topical cream 09/03 completed Not Available Not Available Not Available simvastat in 40 mg tablet 02/04 completed Not Available Not Available Not Available carvedilo l 3.125 mg tablet 02/08 completed Not Available Not Available Not Available bisoprolo l fumarate 10 mg tablet 02/08 completed Not Available Not Available Not Available warfarin 4 mg tablet Take 1 tablet every day by oral route as needed for 30 days. 02/04 completed Not Available Not Available Not Available warfarin 3 mg tablet 01/23 completed Not Available Not Available Not Available pantopraz ole 20 mg tablet,de layed release TAKE 1 TABLET BY MOUTH DAILY. 07/11 completed Not Available Not Available Not Available bisoprolo l fumarate 5 mg tablet 06/28 completed Not Available Not Available Not Available Promethaz ine VC-Codein e 6.25 mg-5 mg-10 mg/5 mL oral syrup take 5 millilit ers by oral route every 4-6 hours as needed, not to exceed 30 mL in 24 hours 2015 active Prometha zine VC-Codei ne 6.25-5-1 0 mg/5 mL oral syrup;Re corded Status: Recorded on: 09/30/19 16 2:30PM;U ser: gored;Pr inted: 03/08/20 16 Not Available Not Available Not Available doxycycli ne monohydra te 50 mg capsule 02/08 completed Not Available Not Available Not Available ceftriaxo ne 1 gram solution for injection Take 1 g by injectio n route. 08/19 completed Not Available Not Available Not Available warfarin 6 mg tablet Take 1 tablet every day by oral route as directed for 90 days. active Not Available Not Available No t Available prednisol one acetate 1 % eye drops,sherry pension 04/03 completed Not Available Not Available Not Available DOK 100 mg capsule 02/08 completed Not Available Not Available Not Available tamsulosi n 0.4 mg capsule Take 2 capsules every day by oral route. active Not Available Not Available No t Available Flagyl 500 mg tablet Take 1 tablet every 8 hours by oral route for 5 days. 09/03 completed Not Available Not Available Not Available benzonata te 100 mg capsule Take 1 capsule 3 times a day by oral route as needed for 7 days. 08/31 completed Not Available Not Available Not Available simvastat in 5 mg tablet take 1 tablet (5 mg) by oral route once daily in the evening 2015 active simvasta tin 5 mg oral tablet;R ecorded Status: Recorded on: 09/30/19 16 1:44PM;U ser: [email or web address] Not Available Not Available Not Available pantopraz ole 40 mg tablet,de layed release Take 1 tablet every day by oral route as directed for 30 days. 06/28 completed Not Available Not Available Not Available simvastat in 20 mg tablet Take 1 tablet every day by oral route at bedtime for 90 days. 02/04 completed Not Available Not Available Not Available erythromy roberto 5 mg/gram (0.5 %) eye ointment 01/22 completed Not Available Not Available Not Available Cipro 500 mg tablet take 1 tablet (500 mg) by oral route 2 times per day for 5 days 09/03 completed Not Available Not Available Not Available triamcino lone acetonide 0.1 % topical ointment 02/04 completed Not Available Not Available Not Available Alrex 0.2 % eye drops,sherry pension instill 1 drop into affected eye(s) by ophthalm ic route 4 times per day 10/11 completed Alrex 0.2 % ophthalm ic drops,moreno spension ;Recorde d Status: Recorded on: 09/15/19 12 1:34PM;D iscontin ued Status: Disconti nued on: 10/11/19 14 1:48PM;U ser: [facility];P rinted: 09/15/19 12 Not Available Not Available Not Available warfarin 5 mg tablet Take 1 tablet every day by oral route as directed for 90 days. active Not Available Not Available No t Available nystatin- triamcino lone 100,000 unit/g-0. 1 % topical cream APPLY TO THE AFFECTED AREA(S) BY TOPICAL ROUTE 3 TIMES PER DAY IN THEMORNI NG AND EVENING 02/04 completed Not Available Not Available Not Available hydrocort isone acetate 1 % topical ointment 04/03 completed Not Available Not Available Not Available Senna Laxative 8.6 mg tablet 02/08 completed Not Available Not Available Not Available mupirocin 2 % topical ointment APPLY A SMALL AMOUNT TO THE AFFECTED AREA BY TOPICAL ROUTE 3 TIMES PER DAY 04/03 completed Not Available Not Available Not Available digoxin 125 mcg (0.125 mg) tablet 02/08 completed Not Available Not Available Not Available metoprolo l succinate ER 25 mg tablet,ex tended release 24 hr TAKE 1 TABLET BY MOUTH DAILY FOR 90 DAYS. active Not Available Not Available No t Available Aspir-81 mg tablet,de layed release take 1 tablet (81 mg) by oral route once daily 02/02 completed Aspir-81 81 mg oral tablet,d elayed release (/EC); Recorded Status: Recorded on: 09/30/19 16 1:44PM;U ser: [email or web address] Not Available Not Available Not Available warfarin 1 mg tablet Take 1 tablet every day by oral route. 02/08 completed Not Available Not Available Not Available prednison e 5 mg tablets in a dose pack Take as directed 01/25 completed Not Available Not Available Not Available levofloxa roberto 500 mg tablet 12/24 completed Not Available Not Available Not Available methylpre dnisolone 4 mg tablets in a dose pack take as directed for 6 days 08/31 completed Not Available Not Available Not Available lisinopri l 2.5 mg tablet Take 1 tablet every day by oral route as directed for 30 days. 08/31 completed Not Available Not Available Not Available doxycycli ne hyclate 100 mg tablet Take 1 tablet twice a day by oral route for 7 days. 04/03 completed Not Available Not Available Not Available enoxapari n 80 mg/0.8 mL subcutane ous syringe Inject 0.8 mL every 12 hours by subcutan eous route for 9 days. 03/21 completed Not Available Not Available Not Available metoprolo l tartrate 25 mg tablet 02/08 completed Not Available Not Available Not Available Voltaren one bid 09/30 completed voltaren 75 mg.;Dillon rded Status: Recorded on: 03/03/20 15 11:43AM; Disconti nued Status: Disconti nued on: 09/30/19 16 1:44PM;U ser: [email or web address]; Est. Completi on: 04/02/20 15;Indic ation: knee - (-5) Not Available Not Available Not Available Allergy Relief (cetirizi ne) 10 mg tablet TAKE 1 TABLET BY MOUTH DAILY. 2024 active Not Available Not Available Not Avai lable Xiidra 5 % eye drops in a dropperet te 02/04 completed Not Available Not Available Not Available Vitals Date Recorded Body height Body mass index (BMI) Body weight Body temperature Heart rate Oxygen saturation Oxygen saturation in Arterial blood by Pulse oximetry Respiratory rate Systolic blood pressure Diastolic blood pressure Provider Name and Address Organization Details Last Updated DateTime 3 185.42 cm 22.6 kg/m2 91964.3 g 98.1 [degF] 76 /min 97 % 97 % 18 /min 105 mm[Hg] 65 mm[Hg] Kortney Monget [place] - [facility] 3 13:39:08 Date Recorded Body height Body mass index (BMI) Body weight Heart rate Oxygen saturation Oxygen saturation in Arterial blood by Pulse oximetry Respiratory rate Systolic blood pressure Diastolic blood pressure Provider Name and Address Organization Details Last Updated DateTime 4 185.42 cm 21.2 kg/m2 40109.3 7 g 65 /min 93 % 93 % 18 /min 122 mm[Hg] 70 mm[Hg] Crystal Kael [place] - [facility] 4 09:29:15 Date Recorded Body height Body mass index (BMI) Body weight Body temperature Heart rate Oxygen saturation Oxygen saturation in Arterial blood by Pulse oximetry Systolic blood pressure Diastolic blood pressure Provider Name and Address Organization Details Last Updated DateTime 4 185.42 cm 21.1 kg/m2 72927.7 8 g 98.8 [degF] 70 /min 94 % 94 % 128 mm[Hg] 76 mm[Hg] Rimma Harsh [place] - [facility] 4 09:19:02 Date Recorded Body height Body mass index (BMI) Body weight Body temperature Heart rate Oxygen saturation Oxygen saturation in Arterial blood by Pulse oximetry Respiratory rate Systolic blood pressure Diastolic blood pressure Provider Name and Address Organization Details Last Updated DateTime 3 185.42 cm 21.9 kg/m2 25619.7 3 g 97.7 [degF] 67 /min 96 % 96 % 18 /min 98 mm[Hg] 64 mm[Hg] Kortney Johnson [place] - [facility] 3 09:35:58 Date Recorded Body height Body mass index (BMI) Body weight Heart rate Oxygen saturation Oxygen saturation in Arterial blood by Pulse oximetry Respiratory rate Systolic blood pressure Diastolic blood pressure Provider Name and Address Organization Details Last Updated DateTime 4 185.42 cm 22.7 kg/m2 90762.5 9 g 60 /min 95 % 95 % 18 /min 110 mm[Hg] 64 mm[Hg] Iris Greg lopez [place] - [facility] 4 11:43:17 Social History Question Answer Notes LastModified by Organizat ion Details LastModified Time Tobacco Smoking Status Never Smoker Not Available [facility] 05/29/2020 03:17:11 Are You Blind Or Do You Have Difficulty Seeing? No [id number] Information not available 05/29/2020 What Is Your Level Of Caffeine Consumption? Moderate [id number] Information not available 05/29/2020 Are You Deaf Or Do You Have Serious Difficulty Hearing? No [id number] Information not available 05/29/2020 What Type Of Diet Are You Following? REGULAR [id number] Information not available 05/29/2020 Which Illicit Or Recreational Drugs Have You Used? Declined [id number] Information not available 05/29/2020 Legally Blind In One Or Both Eyes? No [email or web address] Information no t available 01/23/2018 Live Alone Or With Others? With Others [email or web address] Information not available 01/23/2018 What Was The Date Of Your Most Recent Tobacco Screening? 02/05/2024 Information not available 02/05/2024 How Many Children Do You Have? 6 [id number] Information not available 05/29/2020 What Is Your Relationship Status? [id number] Information not available 05/29/2020 Are You Sexually Active? Yes Information not available 02/05/2024 Smoke Alarm In Home Yes [email or web address] Information not available 01/23/2018 How Much Tobacco Do You Smoke? No [id number] Information not available 05/29/2020 Has Tobacco Cessation Counseling Been Provided? Yes Information not available 07/11/2022 On What Date Was Tobacco Cessation Counseling Provided? 02/05/2024 Information not available 02/05/2024 How Many Years Have You Smoked Tobacco? 0 [id number] Information not available 05/29/2020 Do You Have Difficulty Walking Or Climbing Stairs? No [id number] Information not available 05/29/2020 Sex: Male Functional Status Question Answer Note LastModified by Organizat ion Details LastModified Time Do you use any illicit or recreational drugs? No Information not available 02/05/2024 Do you or have you ever used any other forms of tobacco or nicotine? No Information not available 07/11/2022 What is your level of alcohol consumption? None [id number] Information not available 05/29/2020 Do you or have you ever used smokeless tobacco? Never used smokeless tobacco [id number] Information not available 05/29/2020 Are you currently employed? Yes [id number] Information not available 05/29/2020 Are you able to walk? YESWOREST [id number] Information not available 05/29/2020 Do you have difficulty doing errands alone? No [id number] Information not available 05/29/2020 Are you able to care for yourself? Yes [id number] Information not available 05/29/2020 What is your occupation? [employer] [id number] Information not available 05/29/2020 Do you have difficulty dressing or bathing? No [id number] Information not available 05/29/2020 Do you or have you ever used e-cigarettes or vape? Never used electronic cigarettes [id number] Information not available 05/29/2020 Mental Status Question Answer Note LastModified by Organization D etails LastModified Time Do you have difficulty concentrating, remembering or making decisions? No [id number] Information no t available 05/29/2020 Family History Relationship Description Onset Age of this Age Resolved Age Notes LastModified by Organization Details LastModified Time Mother Natural 92 [email or web address] Not available 2023 09:21:31 Father Natural 76 [email or web address] Not available 2023 09:22:05 Notes:5 siblings all living and in good health Medical History Condition Response Colonoscopy Y Breast Problem Y Heart Problems Y Immunizations Vaccine Type Date Status Note Provider Name and Address Organization Details Recorded Time Influenza, high-dose, trivalent, PF 06/28/20 cancelled patient objection Not Available [facility] 08/31/2019 03:56:15 Pneumococcal conjugate PCV 13 06/28/20 19 cancelled patient objection Not Available [facility] 08/31/2019 03:56:17 Past Encounters Encounter ID Performer Location Encounter Start Date Encounter Closed Date Diagnosis/Indication Diagnosis SNOMED-CT Code Diagnosis ICD10 Code Diagnosis Note [id number] Kaitlin Ugarte [address] [place] [address] 01/23/2018 10:56:26 01/23/2018 11:57:43 Body mass index 20-24 - normal 456345138 Z68.23 Candidiasis of skin 4988 3006 B37.2 [id number] Kandace Zamora [address] [place] [address] 02/02/2018 15:31:41 02/02/2018 16:21:52 Candidiasis of skin 87003338 B37.2 Acute abdominal pain 116 124308 R10.9 [id number] Kandace Zamora [address] [place] [place] [address] 02/08/2018 14:17:38 02/08/2018 15:17:06 Diverticulitis 805350557 K57.92 History of mitral valve replacement 6253629997 109 Z95.2 [id number] Elizabeth Jasso [address] [place] [address] 09/03/2018 10:35:50 09/03/2018 11:39:34 Anticoagulant therapy 871602653 Z79.01 [id number] Elizabeth Jasso [address] [place] [address] 09/10/2018 08:37:32 09/10/2018 09:59:01 Warfarin monitoring status 959056014 Z51.81 Long-term drug therapy 512290775 Z79.899 History of mitral valve replacement 3057365617 109 Z95.2 [id number] Elizabeth Jasso[address] [place] [address] 09/18/2018 08:55:29 09/18/2018 09:39:23 Anticoagulant therapy 873188463 Z79.01 Warfarin m onitoring status 434064022 Z51.81 Long-term drug therapy 006621656 Z79.899 History of mitral valve replacement 0736413268 109 Z95.2 [id number] Elizabeth Jasso[address] [place] [address] 09/24/2018 08:55:43 09/24/2018 09:25:20 Warfarin monitoring status 792622948 Z51.81 Anticoagulant therapy 18 0437750 Z79.01 Long-term drug therapy 728329874 Z79.899 History of mitral valve replacement 5411847411 109 Z95.2 [id number] Elizabeth Jasso[address] [place] [address] 10/01/2018 08:28:29 10/01/2018 10:08:14 History of mitral valve replacement 5685076832 109 Z95.2 First degr ee atrioventricular block 890312084 I44.0 Warfarin m onitoring status 877423402 Z51.81 [id number] Elizabethjeffrey Jasso[address] [place] [address] 06/28/2019 08:43:11 06/28/2019 09:59:42 Adult health examination 245335006 Z00.00 Depression screening 171 165682 Z13.89 Examinatio n of blood pressure 458986279 Z01.30 Diet education 00861959 Z71.3 Counseling 970740848 Z71 .82 Exercise counseling . Patient encouraged to exercise 30 minutes 5 days a week. [facility] risk for falls 081100172 Z91.81 STEADI FAST screening score of . Advance care planning 71 1287816 Z71.89 Active or passive immunization 031813191 Z23 History of atrial fibrillation 164910760 Z86.79 Screening for malignant neoplasm of prostate 286170002 Z12.5 Endocrine/ metabolic screening 732644185 Z13.228 Screening for cardiovascular system disease 741720923 Z13.6 [id number] Zohaib Kapoor MD [address] [place] [address] 01/23/2020 14:57:17 01/23/2020 16:53:16 Pain of left wrist 8368857657 51143 M25.532 Pain of left hand 256480 4000 59228 M79.642 Skin lesion 83756557 L98 .9 Pain in left arm 9506271 00 M79.602 First degr ee atrioventricular block 614574191 I44.0 History of mitral valve replacement 3464976568 109 Z95.2 [id number] Elizabeth Jasso [address] [place] [address] 01/25/2021 11:39:17 01/25/2021 12:25:52 Pure hypercholesterolemia 216987881 E78.00 Endocrine/ metabolic screening 436994747 Z13.228 History of mitral valve replacement 5838649162 109 Z95.2 Warfarin m onitoring status 907712474 Z51.81 Allergic rhinitis 074100 04 J30.9 [id number] Elizabeth Jasso [address] [place] [address] 04/27/2021 08:19:38 04/27/2021 09:18:30 Adult health examination 911286213 Z00.00 Depression screening 171 736652 Z13.89 Examinatio n of blood pressure 638474755 Z01.30 Diet education 25641478 Z71.3 Counseling 571610629 Z71 .82 Exercise counseling . Patient encouraged to exercise 30 minutes 5 days a week. [facility] risk for falls 205568326 Z91.81 STEADI FAST screening score of . Advance care planning 71 5629161 Z71.89 Nocturia d ue to benign prostatic hypertrophy 8373326671 101 N40.1 Screening for malignant neoplasm of prostate 788747623 Z12.5 Body mass index 20-24 - normal 652733054 Z68.23 Endocrine/ metabolic screening 312803607 Z13.228 Cracked lips 664316335 K 13.0 [id number] Gracia Jose [address] [place] [address] 07/11/2022 15:40:41 07/11/2022 16:37:58 Cough 46273684 R05.9 Acute pharyngitis 694917 003 J02.9 Negative for strep throat per rapid testing in office [id number] Shweta Hawthorne [address] [place] [address] 08/19/2022 16:14:48 08/19/2022 17:03:18 Viral screening 198452344 Z11.59 Influenza caused by Influenza A virus 599839070 J09.X2 Wheezing 51034827 R06.2 [id number] Elizabeth Jasso [address] [place] [address] 08/31/2022 13:14:20 08/31/2022 14:50:02 Acute bacterial bronchitis 352985558 J20.9 [id number] Elizabeth Jasso[address] [place] [address] 04/03/2023 09:20:08 04/03/2023 10:06:27 History of mitral valve replacement 9763128377 109 Z95.2 Nocturia d ue to benign prostatic hypertrophy 7657981213 101 N40.1 Pure hypercholesterolemia 493271803 E78.00 Tinea cruris 091913350 B 35.6 Allergic rhinitis 321153 04 J30.9 [id number] Gracia Jose [address] [place] [address] 02/05/2024 09:12:59 02/05/2024 09:46:22 Carcinoma of prostate 117245986 C61 Nocturia d ue to benign prostatic hypertrophy 5804272353 101 N40.1 Pure hypercholesterolemia 157115035 E78.00 Tachycardi a-bradycard ia 43120235 I49.5 Body mass index 20-24 - normal 529394840 Z68.21 [id number] Jesus Uribe MD [facility] [address] [place] [address] 03/29/2024 09:13:11 03/29/2024 09:48:01 Body mass index 20-24 - normal 813915061 Z68.21 Blood in urine 46496603 R31.9 [id number] Jesus Uribe MD [facility] [address] [place], [place] [address] [place] [address] 08/12/2024 10:58:07 08/12/2024 12:02:18 Anticoagulant therapy 721424247 Z79.01 History of mitral valve replacement 0691068386 109 Z95.2 Health Concerns Section Related Observation LastModified by Organization Detai ls LastModified Time None Recorded Concern Status LastModified by Organization Details LastModified Time None Recorded Advance Directives Directive None Recorded Payers Insurance Date Sequence Insurance Name Policy Number Policy Roberts Covered Member ID Roberts Member ID Guarantor Name 08/12/2024 MEDICAID-[facility] WRAP [facility]ILL[facility] (MEDICAID) Petey Leblanc [id number] Petey Leblanc 08/12/2024 1 [employer] [place]TER [employer] [place] (MEDICAID HMO) Petey Leblanc [id number] Petey Leblanc 08/12/2024 2 [employer] [facility]TER HEALTH [facility] Petey Leblanc [id number] Petey Leblanc 01/01/2025 [facility] - [place] - [facility] (MEDICARE) Petey Leblanc [id number] Petey Leblanc 01/01/2025 2 [employer] [facility] [employer] - [employer] - PLAN F (MEDICARE SUPPLEMENT) Petey Leblanc [id number] Petey Leblanc 01/01/2025 1 [place] Petey Leblanc [id number] Petey Leblanc Notes Date Note Type Note Provider Name and Address Organization Details Recorded Time 08/31/2022 text/html - Pt presents to the office today with complaints of continued cough and congestion that has been present for 2 weeks. Pt states he was dx with Flu A within those 2 weeks and the cough/congestion has lingered. Denies fever, admits to having large amounts of sputum production and cough is worse during the night. Elizabeth Jasso APRN [address], [place], [address], [place] - [facility] 09/01/2022 00:00:22 04/03/2023 text/html -Pt presents to the office today for a follow up, states that he has been doing well. He has had an almost 5lb weight loss since last vist. States that he has cut back on sugar intake and eliminating soda r/t his prostate cancer diagnoses.-Voiced concern of mild rash to buttocks r/t heat and riding the tractor for hours at a time. -Denies CP, SOB, N/V/D,SI, and is afebrile while in office Elizabeth Jasso APRN [address], [place], [address], [facility] - [facility] 05/15/2023 00:05:06 02/05/2024 text/html Presents for hospital follow upSe[facility] ED [facility] for hypotension and near syncope.Reports metoprolol dose changedFollows with Terry Hurtado MD for cardiology Feeling wellChecking INR at home once a week - goal 2.5-3.5 (mechanical MV)No chest pain, shortness of breath, dizziness, lightheadedness, syncope, palpitations or edema.No fever, chills or cough.Denies tobacco, alcohol and illicit drug usage.Tolerating warfarin - denies hematochezia, hematuria, melena, falls or hemoptysis.Compliant with medications Gracia Jose, [employer]ING [employer]PER[employer] [address], [place], [address], [place] - [facility] 02/05/2024 11:40:58 03/29/2024 text/html Pt presents for gross hematuria x4 days. Pt states intermittent over the last 24 hours but was constant for the first 3 days. Pt does have current prostate cancer but is not under active treatment at this time. He is following with Urology monthly at this time. He is anti-coagulated with warfarin and INR today is 3.2 with mechanical valve. Jesus Uribe MD [address], [place], [address], [place] - [facility] 03/29/2024 12:54:05 08/12/2024 text/html Pt presents for f/u AC for mechanical mitral valve. AC is with coumadin, alternating 6mg-5mg PO QD. Pt states stable on this regimen for years . Pt does most INR testing weekly, at home. Today's is 3.2 and is stable when reviewed with Pt's INR machine log. Jesus Uribe MD [address], [place], [address], [place] - [facility] 08/12/2024 18:04:37
--- OUTSIDE RECORDS SUMMARY | 2025-02-03 07:48 | XMS_ITS | Clinical Summary ---
Author Organization Healthcare Address [address] [place] [address] Care Team Providers Care Wort Extractor Name Role Phone Lei Donaldson MD Primary Care Provider Family History Medical History Relation Name Comments [...] Date Last Done Comments [facility]-Depression Screening 1955 [facility]-Infant/Child/Adol SDOH Screenings 1955 [facility]- SDOH Screenings 1971 [facility]-Adult SDOH Screenings 1971 [facility]-DTaP,Tdap,and Td Vaccine s (1 - Tdap) 1972 CT Colonography 1998 Colonoscopy 1998 FIT-DNA 1998 FIT 1998 FOBT 1998 Sigmoidoscopy 1998 [facility]-Colorectal Cancer Screening 1998 [facility]-Pneumococcal Vaccine: 50 + Years (1 of 1 - PCV) 2003 [facility]-Zoster Vaccines (1 of 2) 2003 [id number] Vaccine (1 - 20 24-25 season) 2024 [...] this topic Insurance MEDICARE AETNA Care Teams Wort Extractor Relationship Specialty Start Date End Date Lei Donaldson MD [address] [place] [id number] [facility] - General 12/25/20
--- OUTSIDE RECORDS SUMMARY | 2025-02-03 07:48 | XMS_ITS | Clinical Summary ---
Author Organization [facility] Address [address] [place] [address] Care Team Providers Care Gas Engine Repairer Name Role Phone Mendoza Benitez MD, Lei [...] therelease of HIV test results or diagnoses. 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
--- NOTE | 2025-02-03 08:00 | CA_ITS ---
APPROVED REPORT EXAM: Comprehensive 2D, Doppler, and color-flow Echocardiogram Clerical Methods Analyst: Gita Rodriguez CRT Ht: 6 ft 1 in Wt: 171lbs BSA: 2.01 BP: 125/68 mmHg Indications: Mitral Valve replacement, Atrial Fibrillation, CAD EF 45% 01/04 2D Dimensions LA Volume 71.30 mL LA Volume Index 34.60 mL/m2 (M/F) 16-34 M-Mode Dimensions RVDd 3.12 cm (0.9-2.6) LA Diam 3.70 cm (1.9-4.0) LVDd 5.39 cm (3.5-5.7) LVDs 3.19 cm (3.5-5.7) IVSd 1.18 cm (0.6-1.1) PWd 0.81 cm (0.6-1.1) EF (Teich) 71.10% FS 40.80% EDV (Teich) 140.70 mL TAPSE 1.49 (<1.7) ESV (Teich) 40.60 mL LV Diastology E Decel Time 303 (160-240 msec) E/A Ratio 2.47 MED A' 7.10 cm/s LAT A' 10.30 cm/s Aortic Valve AO Peak GR. 3.10 mmHg Mitral Valve MV E Max Carter. 162.0 (40-130 cm/s) MV A Velocity 66.0 (40-130 cm/s) E/A Ratio 2.47 MV Mean Gr. 4.60 (<2mmHg) MV PHT 89.0 ms Pulmonary Valve PV Peak Velocity 161.0 (50-150 cm/s) Tricuspid Valve TR P. Velocity 272.00 cm/s RAP Estimate 10.00 mmHg RVSP 39.70 mmHg Left Ventricle The left ventricle is normal size. Left ventricular systolic function is mildly decreased. There is increased LV wall thickness. There is mild global hypokinesis present. Diastolic function is indeterminate. LVEF is 45-50%. Right Ventricle Right ventricle is moderate to severely dilated. The right ventricular systolic function is normal. Atria Left atrium is severely dilated. Right atrium is severely dilated. There is no Doppler evidence of interatrial shunt. Aortic Valve Aortic valve is mildly thickened. There is no aortic valvular stenosis. Mild aortic regurgitation. Mitral Valve s/p mechanical mitral valve replacement. The prosthesis is well-seated. Mean MV gradient 4 mmHg (HR 60 bpm). PHT is 62 ms. Trace central mitral regurgitation. Tricuspid Valve The tricuspid valve leaflets are thin and pliable. Mild tricuspid regurgitation. RVSP is 20-25 mmHg. Trace pulmonic regurgitation. Pulmonic Valve The pulmonary valve is normal in structure. Great Vessels The aortic root is normal in size. IVC is normal in size and collapses >50% with inspiration. Pericardium There is no pericardial effusion. Other Information Study Quality: Fair Conclusion Mildly reduced LV systolic function (LVEF 45-50%). Moderate to severe RV dilation with normal RV function. s/p mechanical mitral valve replacement. Acceptable mean transmitral gradients. Mild AI, mild TR. When compared to prior study from 12/21/2023, there are no significant changes. Electronically signed by : Floresita Tang MD 02/04/2025 14:09:01
== END 2025-02-03 23:59 | disposition home or self-care (01) ==
LOC: RT 07:45
PROVIDERS: PCP Nurse Practitioner; Visit Provider Physician Assistant
DX: I08.2 Rheumatic disorders of both aortic and tricuspid valves (principal); I11.9 Hypertensive heart disease without heart failure; I25.10 Atherosclerotic heart disease of native coronary artery without angina pectoris; I48.91 Unspecified atrial fibrillation; R93.1 Abnormal findings on diagnostic imaging of heart and coronary circulation; Z95.2 Presence of prosthetic heart valve
CPT/HCPCS: 93306